=== PATIENT | male | born 1940 | race Caucasian/White ===

== ENCOUNTER 2017-08-30 08:11 | Outpatient (CLI) | payer MEDICARE, OTHER ==
[~2017-08-30] VITALS: Ht 175.3 cm; Wt 87.3 kg
--- NOTE | ~2017-08-30 | HEMODYNAMI ---
PATIENT:MISAEL DOUGHERTY MEDICAL RECORD: [id number] : 38 LOCATION:[facility] ADMISSION DATE: 08/30/17 Generatedon:08/30/201711:40 Patient name: MISAEL DOUGHERTY Patient #: [id number] SSN: : 1940 Date of study: 08/30/2017 Page: Of Hemodynamic Procedure Report Patient Data Patient Demographics Procedure consent was obtained First Name: MISAEL Gender: Male Last Name: LADONNA : 1940 [facility] Initial: L Age: 77 year(s) Patient #: [id number] Race: Unknown Additional ID: [id number] Contact details [address]: [address] [place] [address] State: [place] City: [facility] Zip code: [address] Admission Admission Data Admission Date: 08/30/2017 Admission Time: 8:11 Height (in.): 5.9 BSA: 0.35 (m2) Height (cm.): 14.99 BMI: 4100.06 (kg/m2) Weight (lbs.): 203 Weight (kg.): 92.08 Lab Results Lab Result Date: 08/30/2017 Lab Result Time: 0:00 Biochemistry Name Units Result Min Max BUN mg/dl 30 --(----)-* 7 18 Creatinine mg/dl 1.8 --(----)-* 0.6 1.3 CBC Name Units Result Min Max Hemoglobin g/dl 11.7 *-(----)-- 13.5 17.5 Procedure Procedure Types Cath Procedure Diagnostic Procedure LHC LHC w/Coronaries PCI Procedure Coronary Stent Coronary Stent Initial Miscellaneous Procedures Moderate Sedation up to 15 minutes Procedure Description Procedure Date Procedure Date: 08/30/2017 Procedure Start Time: 11:22 Procedure End Time: 11:39 Procedure Staff Name Function Isidro Quezada MD Performing Physician Floyd Luna RT Monitor Dominique Alba RT Scrub Judith Barrera RN Nurse Procedure Data Cath Procedure Fluoroscopy Diagnostic fluoroscopy Total fluoroscopy Time: 2.9 time: 2.9 min min Diagnostic fluoroscopy Total fluoroscopy dose: 728 dose: 728 mGy mGy Contrast Material Contrast Material Type Amount (ml) Isovue 300 87 Entry Location Entry Primary Successful Side Size Upsize Upsize Entry Closure Saba ccessful Closure Location (Fr) 1 (Fr) 2 (Fr) Remarks Device Remarks Radial Right 6 Fr Mechanical artery Short Compression Estimated blood loss: 10 ml Diagnostic catheters Device Type Used For End Catheter Placement DIAGNOSTIC [place] 110cm 5 Procedure Fr catheter ([id number]) Procedure Complications No complications Procedure Medications Medication Administration Route Dosage Oxygen NC 2 l/min Lidocaine 2% added to field 20 Heparin Flush Bag added to field 2 bags (1000units/500ml NS) 0.9% NaCl I.V. 100 ml/hr Versed I.V. 1 mg Fentanyl I.V. 50 mcg Heparin Bolus I.V. 4000 units Versed I.V. 1 mg Fentanyl I.V. 50 mcg Radial Cocktail I.A. 1 syringe (Verapomil 2mg/Nitro 400mcg/Heparin 1500units) Hemodynamics Rest BSA: 0.35 (m2) HGB: 11.7 (g/dl) O2 Consumption: Estimated: 40.43 (ml/min) O2 Con sumption indexed: Estimated:115.51 (ml/min/m) Heart Rate: 73 (bpm) Pressure Samples Time Site Value (mmHg) Purpose Heart Use Rate(bpm) 11:33 AO 91/57(73) Snapshot 75 Snapshots Pre Cath Intra NCS Post Cath Vital Signs Time Heart Resp SPO2 etCO2 NIBP Rhythm Pain Sedation Rate (ipm) (%) (mmHg) (mmHg) Status Level (bpm) 10:47:25 68 28 93 0 97/58(77) NSR 0 (11) 10(A) , No pain 10:51:59 69 27 93 0 93/58(76) NSR 0 (11) 10(A) , No pain 10:56:34 66 26 94 29.4 96/58(78) NSR 0 (11) 10(A) , No pain 11:01:08 73 24 96 23.4 92/61(74) NSR 0 (11) 10(A) , No pain 11:05:41 67 23 96 36.2 100/63(78) NSR 0 (11) 10(A) , No pain 11:10:15 72 20 96 37.7 92/62(77) NSR 0 (11) 10(A) , No pain 11:14:50 69 22 97 9.8 96/56(79) NSR 0 (11) 10(A) , No pain 11:19:24 72 21 97 15.8 95/60(74) NSR 0 (11) 10(A) , No pain 11:23:59 71 21 95 36.9 99/59(82) NSR 0 (11) 9(A) , No pain 11:28:33 76 19 94 25.6 93/61(75) NSR 0 (11) 9(A) , No pain 11:33:08 75 21 95 35.4 93/57(71) NSR 0 (11) 9(A) , No pain 11:37:42 76 18 94 20.3 96/62(76) NSR 0 (11) 10(A) , No pain Medications Time Medication Route Dose Verified Delivered Reason Note s Effectiveness by by 10:59:13 Oxygen NC 2 l/min Isidro Buffie used for Damien Barrera RN procedure 10:59:23 Lidocaine 2% added 20ml Isidro Isidro for local to vial Damien Quezada MD anesthetic field 10:59:30 Heparin Flush added 2 bags Isidroyuki Felix used for Bag to Damien Quezada MD procedure (1000units/500ml field NS) 10:59:42 0.9% NaCl I.V. 100 Isidro Buffie Per physician ml/hr Damien Barrera RN 11:20:39 Versed I.V. 1 mg Isidro Buffie for sedation Damien Barrera RN 11:20:45 Fentanyl I.V. 50 mcg Isidro Buffie for sedation Damien Barrera RN 11:27:55 Radial Cocktail I.A. 1 Isidro Isidro for (Verapomil syringe Damien Quezada MD vasodilation 2mg/Nitro 400mcg/Heparin 1500units) 11:30:10 Heparin Bolus I.V. 4000 Isidro Buffie for veri fied units Damien Barrera RN anticoagulation with dr quezada 11:33:53 Versed I.V. 1 mg Isidro Buffie for sedation Damien Barrera RN 11:33:57 Fentanyl I.V. 50 mcg Isidro Buffie for sedation Damien Barrera air duct mechanic Log Time Note 10:20:44 Dominiquedianna Alba RT(R) sent for patient. Start room use. 10:31:08 Patient Height : 5.9 inches 10:31:10 Patient Weight : 203 lbs 10:31:35 Diagnostic Cath status Elective 10:31:42 Time tracking: Regular hours 10:31:46 Plan of Care:Hemodynamics will remain stable., Cardiac rhythm will remain stable., Comfort level will be maintained., Respiratory function will remain adequate., Patient/ family verbilizes understanding of procedure., Procedure tolerated without complication., Recovers from procedure without complications.. 10:31:58 H&P Date Dictated: 08/14/2017 Within 30 days and on chart., H&P Addendum completed by physician on day of procedure. (MUST COMPLETE FOR ALL OUTPATIENTS). 10:34:53 Lab Result : BUN 30 mg/dl 10:34:53 Lab Result : Creatinine 1.8 mg/dl 10:34:53 Lab Result : Hemoglobin 11.7 g/dl 10:40:35 Patient received from Pre/Post Procedure Room to CCL 1 Alert and oriented. Tansferred to table in Supine position. 10:40:36 Warm blankets applied, and len hugger turned on for patient comfort. 10:40:37 Correct patient and procedure confirmed by team. 10:40:38 Signed procedure consent form obtained from patient. 10:40:39 ECG and BP/O2 sat monitors applied to patient. 10:46:35 Vital chart was started 10:59:12 Baseline sample Acquired. 10:59:13 Oxygen 2 l/min NC was administered by Judith Barrera RN; used for procedure; 10:59:17 Rhythm: sinus rhythm 10:59:18 Full Disclosure recording started 10:59:20 Pre-procedure instructions explained to patient. 10:59:20 Pre-op teaching completed and patient verbalized understanding. 10:59:23 Lidocaine 2% 20ml vial added to field was administered by Isidro Quezada MD; for local anesthetic; 10:59:30 Heparin Flush Bag (1000units/500ml NS) 2 bags added to field was administered by Isidro Quezada MD; used for procedure; 10:59:42 0.9% NaCl 100 ml/hr I.V. was administered by Judith Barrera RN; Per physician; 11:00:02 Family in patients room. 11:00:04 Patient NPO since Midnight. 11:00:11 Is the patient allergic to Iodine/contrast media? No. 11:00:13 Is patient on blood thinner?Yes 11:00:16 ACC The patient was administered the following blood thiners within the last 24 hours: ACCPlavix 11:00:19 Patient diabetic? Yes. 11:00:28 If diabetic: On Metformin? Unknown 11:00:31 Previous problem with sedation/anesthesia? No ? 11:00:49 Snore? Yes 11:00:51 Sleep apnea? No 11:00:53 Deviated septum? No 11:00:53 Opens mouth fully? Yes 11:00:54 Sticks out tongue? Yes 11:01:07 Airway obstruction? No ? 11:01:09 Dentures? Yes IN TIGHT 11:01:34 Pre procedure: right dorsailis pedis pulse 1+ Palpable, but thready & weak; easily obliterated 11:01:38 Modified Yuriy's test Ulnar < 7 seconds 11:01:40 Patient pain scale 0/10 ?. 11:01:49 IV patent on arrival in left wrist with 0.9% NaCl at O. 11:01:51 Lab results completed and on chart. 11:01:55 Right Radial & Right Groin area was prepped with chlora-prep and draped in sterile fashion 11:01:56 Alarms reviewed by R. N. 11:01:56 Sharps counted by scrub and verified by R.N. 11:03:31 Use device set Radial Dx 11:03:33 Tegaderm 4 x 4 ([id number]) opened to sterile field. 11:03:34 ACIST Manifold (24227) opened to sterile field. 11:03:34 ACIST Hand Control (83136) opened to sterile field. 11:03:36 ACIST Syringe (66969) opened to sterile field. 11:03:36 Medline Cath Pack ([id number]) opened to sterile field. 11:03:36 Bag Decanter (2002) opened to sterile field. 11:03:37 SHEATH 6FR Slender ([id number]) opened to sterile field. 11:03:37 DIAGNOSTIC WIRE .035 260cm J wire (397549) opened to sterile field. 11:03:37 MBrace Wrist Support ([id number]) opened to sterile field. 11:18:30 --------ALL STOP TIME OUT------ :18:31 Final Timeout: patient, procedure, and site verified with staff and physician. All members of the team are in agreement. 11:18:33 Right Radial & Right Groin site verified by team. 11:18:35 Physical assessment completed. ASA score P 2 - A patient with mild systemic disease as per Isidro Quezada MD. 11:18:38 Sedation plan: IV Moderate Sedation Medication:Versed, Fentanyl 11:20:39 Versed 1 mg I.V. was administered by Judith Barrera RN; for sedation; 11::45 Fentanyl 50 mcg I.V. was administered by Judith Barrera RN; for sedation; 11:22:19 Procedure started. 11:22:28 Local anesthetic to right radial artery with Lidocaine 2% by Isidro Quezada MD.INITIAL ACCESS ONLY 11:26:19 A 6 Fr Short sheath was inserted into the Right Radial artery 11:27:00 A DIAGNOSTIC [place] 110cm 5 Fr catheter (332496) was advanced over the wire and used for Procedure. 11:27:55 Radial Cocktail (Verapomil 2mg/Nitro 400mcg/Heparin 1500units) 1 syringe I.A. was administered by Isidro Quezada MD; for vasodilation; 11:28:04 LV angiography performed. 11:28:06 LV gram done using DASILVA 11:28:13 EF : 50 % 11:28:16 Injector settings: Ml/sec: 7, Volume: 15, 11:28:44 RCA angiography performed. 11::59 GUIDE 6FR XBLAD 3.5 catheter ([id number]) opened to sterile field. 11:29:06 Catheter exchanged over wire. 11:29:14 6 Fr XBLAD 3.5 guide catheter was inserted over the wire 11:30:10 Heparin Bolus 4000 units I.V. was administered by Judith Barrera RN; for anticoagulation; verified with dr quezada 11:30:42 LCA angiography performed. 11:31:15 Use device set DAMIEN PCI 11:31:38 INFLATOR Merit BasixCompak (VZ4234) opened to sterile field. 11:31:59 WHISPER 190cm wire ([id number]) opened to sterile field. 11:32:13 Study PCI Site: [place] mLAD has 80% stenosis. 11:32:15 ACC Pre-intervention VERENA Flow is 3. 11:32:18 Whisper wire advanced. 11:32:54 Wire advanced across lesion. 11:33:53 Versed 1 mg I.V. was administered by Judith Barrera RN; for sedation; 11:33:57 Fentanyl 50 mcg I.V. was administered by Judith Barrera RN; for sedation; 11:34:24 Inflation Number: 1 A MICHAEL RX 2.5 x 34 stent ([id number]) was prepped and advanced across the Mid LAD. The stent was deployed at 19 GARRETT for 0:10 (min:sec). 11:34:38 ACC Post-intervention VERENA Flow is 3. 11:34:46 Stent catheter was removed intact over wire. 11:34:47 Wire removed. 11:34:47 Guide catheter removed. 11:34:56 TR BAND Standard ([id number]) opened to sterile field. 11:36:10 Sheath removed intact; hemostasis achieved with Mechanical Compression to the Right Radial artery. 11:37:27 Procedure ended.(Physican Out) 11:38:28 Fluoroscopy time 02.90 minutes. 11:38:32 Fluoroscopy dose: 728 mGy 11:38:32 Flurop Dose total: 728 11:38:36 Contrast amount:Isovue 300 87ml. 11:38:39 Sharps counted by scrub and verified by R.N. 11:38:41 TR band inflated with 10cc of air. 11:38:43 Insertion/operative site no bleeding no hematoma. 11:38:44 Post Procedure Pulses reassessed and unchanged 11:38:46 Post-procedure physical assessment completed. ASA score P 2 - A patient with mild systemic disease as per Isidro Quezada MD. 11:38:49 Post procedure rhythm: unchanged. 11:38:52 Estimated blood loss: 10 ml 11:38:53 Post procedure instruction explained to patient.Patient verbalizes understanding. 11:38:54 Patient needs reinforcement of post procedure teaching. 11:39:04 Procedure type changed to Cath procedure, Diagnostic procedure, LHC, LHC w/Coronaries, PCI procedure, Coronary Stent, Coronary Stent Initial, Miscellaneous Procedures, Moderate Sedation up to 15 minutes 11:39:06 Procedure and supply charges have been captured, reviewed, submitted and are correct. 11:39:08 Procedure Complication : No complications 11:39:30 Vital chart was stopped 11:39:31 See physician's report for complete and final results. 11:39:33 Report given to Pre/Post Procedure Room. 11:39:45 Patient transfered to Pre/Post Procedure Room with Stretcher. 11:39:47 Procedure ended. 11:39:47 Full Disclosure recording stopped 11:39:50 End room use (Document Last) Intervention Summary Intervention Notes Time ActionType Lesion and Equipment Used Action# Pressure Duration Attributes 11:34:24 Place stent Mid LAD MICHAEL RX 2.5 x 1 19 00:10 34 stent ([id number]) Device Usage Item Name Manufacture Quantity Catalog Hospital Part Current [facility] Lot# / Number Charge Number Stock Stock Serial# Code Tegaderm 4 x 4 3M 1 [id number] 268803 [id number] 5 (1626W) ACIST Manifold Acist 1 52028 769627 771895 692158 5 (06741) Medical Systems Inc ACIST Hand Acist 1 19340 689882 207051 021750 5 Control Medical (63488) Systems Inc ACIST Syringe Acist 1 23802 919232 515710 275177 20 (22949) Medical Systems Inc Medline Cath Cardinal 1 [id number] 655879 06538 840584 5 Pack Health ([id number]) Bag Decanter Microtek 1 2001S 398813 04436 623862 5 (2001S) Medical Inc. SHEATH 6FR Terumo 1 [id number] 974176 801101 292224 40 Slender ([id number]) DIAGNOSTIC [facility] [place] 1 971086 411766 431619 846563 30 WIRE .035 260cm J wire (659579) MBrace Wrist Advanced 1 140-0250-00 032633 75719 192019 5 Support Vascular ([id number]) Dynamics DIAGNOSTIC Terumo 1 40-2863 427015 105711 815078 5 [place] 110cm 5 Fr catheter (415756) GUIDE 6FR Cardinal 1 [id number] 978976 747966 121352 10 XBLAD 3.5 Health catheter ([id number]) INFLATOR Merit Merit 1 [id number] 019705 180829 498149 [facility] ([id number]) WHISPER 190cm Ambrosio 1 [id number] 001279 780423 660401 5 wire Vascular ([id number]) MICHAEL RX 2.5 x Medtronic 1 [id number] 597779 6471511 460518 5 [id number] 34 stent ([id number]) TR BAND Terumo 1 [id number] 117881 087757 128490 40 Standard ([id number]) Signature Audit [place] Stage Time Signature Unsigned Intra-Procedure 08/30/2017 Floyd Luna 11:40:25 AM RT(R) Signatures Monitor : Floyd Luna RT Signature : Date : Time : [id number] [place] [address]
[2017-08-30] MEDS ORDERED: BAYER CHEWABLE81 MG PO (08:26)
[2017-08-30] MEDS ORDERED: FERROUS SULFAT325 MG PO (08:27)
[2017-08-30] MEDS ORDERED: GLUCOTROL XL 1010 MG PO (08:27)
[2017-08-30] MEDS ORDERED: LIPITOR40 MG PO (08:27)
[2017-08-30] MEDS ORDERED: PLAVIX75 MG PO (08:27)
[2017-08-30] MEDS ORDERED: TOPROL XL50 MG PO (08:28)
[2017-08-30] MEDS ORDERED: UROCIT-K10 MEQ PO (08:29)
[2017-08-30] MEDS ORDERED: LISINOPRIL10 MG PO (08:29)
[2017-08-30] MEDS ORDERED: CINNAMON500 MG PO (08:30)
[2017-08-30] MEDS ORDERED: NEURONTIN 300300 MG PO (08:30)
[2017-08-30] MEDS ORDERED: PROTONIX40 MG PO (08:30)
[2017-08-30] MEDS ORDERED: JARDIANCE25 MG PO (08:31)
[2017-08-30 08:48] VITALS: BP 99/66; Ht 175.3 cm; Wt 87.3 kg
[2017-08-30 08:51] LABS: BASOPHILS 0.2 % (0-2); EOSINOPHILS 2.8 % (0-7); HEMATOCRIT 37.3 % (42.0-54.0); HEMOGLOBIN 11.7 g/dL (13.5-17.5); IMMATURE GRANULOCYTES 0.3 % (0-5); LYMPHOCYTES 19.3 % (15-50); MCHC 31.4 g/dL (31.0-37.0); MCV 95.6 fL (80.0-100.0); MEAN PLATELET VOLUME 9.3 fL (7.4-10.4); MONOCYTES 9.4 % (2-11); PLATELET COUNT 301 10x3/uL (130-400); RDW 14.3 % (11.5-14.5)
[2017-08-30 09:06] LABS: ANION GAP 11.5 mmol/L (8-16); CALCIUM 8.8 mg/dL (8.5-10.1); CARBON DIOXIDE 25.5 mmol/L (21.0-32.0); CREATININE - SERUM 1.8 mg/dL (0.6-1.3)
--- NOTE | 2017-08-30 14:38 | NUR ---
1205 RSTING WITH EYES CLOSED. ALL VITALS WNL. PULSES PALP X 4. R WRIST TR BAND C/D/I W NO HEMATOMA OR BLEEDING. WIF AT BEDSIDE. DENIES NEEDS AT THIS TIME. 1230 R WRIST TR BAND C/D/I. SITTING UP EATING TURKEY SANDWICH WITH ASSIST FROM . ALL VITALS WNL. 1330 SITTING UP, WATCHING TV. R WRIST TR BAND C/D/I. ALL VITALS WNL. 1430 2CC AIR REMOVED FROM R WRIST TR BAND. WILL MONITOR FOR BLEEDING.
--- NOTE | 2017-08-30 14:56 | NUR ---
2CC MORE REMOVED FROM R WRIST TR BAND. REMAINS C/D/I. AT SIDE.
--- NOTE | 2017-08-30 15:33 | NUR ---
1520 TR BAND WEANED COMPLETELY. TEGADERM AND COTTON BALL APPLIED TO R WRIST. BRACE RE APPLIED. AMBULATED TO BATHROOM TO VOID. D/C INSTRUCTIONS DISCUSSED WITH PATIENT AND AT BEDSIDE. DISCUSSED RETURN INFORMATION FOR SATURDAY: ARRIVE AT 8 FOR 10 PROCEDURE. WHEELED OUT VIA WHEELCHAIR.
--- NOTE | 2017-09-11 15:46 | OP ---
PATIENT NAME: MISAEL DOUGHERTY MEDICAL RECORD: [id number] :38 LOCATION:D.CAT ADMISSION DATE: SURGEON: CHARITY GRAY MD DATE OF OPERATION: 08/30/2017 PROCEDURES: 1. PTCA stent to LAD. 2. Left heart catheterization. 3. Selective coronary angiography. 4. Left ventriculogram. INDICATION: Angina and coronary artery disease. PROCEDURE IN DETAIL: After informed consent was obtained and after a detailed explanation of risks, benefits as well as alternative therapies, the patient elected to proceed with angiogram and angioplasty. The right radial area was prepped and draped in normal sterile fashion. The right radial artery was cannulated via modified Seldinger technique with placement of 6-[place] sheath. All catheters exchanged through this sheath. FINDINGS: Left ventriculogram was performed in the standard 30-degree DASILVA view reveals preserved ejection fraction at 50%. SELECTIVE CORONARY ANGIOGRAPHY: 1. Left main is with no significant angiographic disease. 2. Left anterior descending has a long area of 80% stenosis in the mid vessel. 3. Left circumflex shows moderate irregularities, but no flow-limiting stenosis. 4. Right coronary artery has a 90% stenosis in the mid vessel. This leads into the PDA. The PLV is totally occluded. The PLV fills via collaterals off the circumflex. PTCA STENT OF THE LAD: The stent used was a 2.5 x 34 mm Arp taken to 19 atmospheres. Result was 0% residual stenosis. OVERALL IMPRESSION: Successful percutaneous transluminal coronary angioplasty stent of the left anterior descending going from long area of 80% initial stenosis to 0% residual. PLAN: PTCA stent of the RCA in the near future. TRANSINT:[id number] Voice Confirmation ID: [id number] DOCUMENT ID: [id number] CHARITY GRAY MD at 1546 CC: [id number] DICTATION DATE: 08/30/17 1140 FORENSIC NURSE: 08/30/17 1245 [facility]P CLI 08/30/17 [address] [place] [address]
== END 2017-08-30 15:40 | disposition home or self-care (01) ==
LOC: D.CATH 08:11
PROVIDERS: Internal Medicine Interventional Cardiology
DX: I25.119 Atherosclerotic heart disease of native coronary artery with unspecified angina pectoris (principal); R94.30 Abnormal result of cardiovascular function study, unspecified; Z01.812 Encounter for preprocedural laboratory examination
CPT/HCPCS: 93458; C9600

== ENCOUNTER 2017-09-03 07:45 | Outpatient (CLI) | payer MEDICARE, OTHER ==
[~2017-09-03] VITALS: Ht 175.3 cm; Wt 88.2 kg
--- NOTE | ~2017-09-03 | HEMODYNAMI ---
PATIENT:MISAEL DOUGHERTY MEDICAL RECORD: [id number] : 38 LOCATION:D.CAT ADMISSION DATE: 09/03/17 Generatedon:09/03/201710:15 Patient name: MISAEL DOUGHERTY Patient #: [id number] SSN: : 1940 Date of study: 09/03/2017 Page: Of Hemodynamic Procedure Report Patient Data Patient Demographics Procedure consent was obtained First Name: MISAEL Gender: Male Last Name: LADONNA : 1940 [facility] Initial: L Age: 77 year(s) Patient #: [id number] Race: Unknown Additional ID: [id number] Contact details Address: [address] [place] [address] State: [place] City: [facility] Zip code: [address] Past Medical History Allergies Allergen Reaction Date Comments Reported Other allergy 09/03/2017 hydrocodone, red dye Admission Admission Data Admission Date: 09/03/2017 Admission Time: 7:45 Height (in.): 70 BSA: 2.1 (m2) Height (cm.): 177.8 BMI: 29.13 (kg/m2) Weight (lbs.): 203 Weight (kg.): 92.08 Lab Results Lab Result Date: 08/30/2017 Lab Result Time: 0:00 Biochemistry Name Units Result Min Max BUN mg/dl 30 --(----)-* 7 18 Creatinine mg/dl 1.8 --(----)-* 0.6 1.3 CBC Name Units Result Min Max Hemoglobin g/dl 11.7 *-(----)-- 13.5 17.5 Procedure Procedure Types Cath Procedure PCI Procedure Coronary Stent Coronary Stent Initial Miscellaneous Procedures Moderate Sedation up to 15 minutes Procedure Description Procedure Date Procedure Date: 09/03/2017 Procedure Start Time: 10:03 Procedure End Time: 10:13 Procedure Staff Name Function Martina Roman RT Monitor Jessica Smith RT Scrub Judith Barrera RN Nurse Isidro Quezada MD Performing Physician Procedure Data Cath Procedure Fluoroscopy Diagnostic fluoroscopy Total fluoroscopy Time: 1.2 time: 1.2 min min Diagnostic fluoroscopy Total fluoroscopy dose: 200 dose: 200 mGy mGy Contrast Material Contrast Material Type Amount (ml) Isovue 300 30 Entry Location Entry Primary Successful Side Size Upsize Upsize Entry Closure Saba ccessful Closure Location (Fr) 1 (Fr) 2 (Fr) Remarks Device Remarks Radial Right 6 Fr Mechanical artery Short Compression Estimated blood loss: 5 ml Procedure Complications No complications Procedure Medications Medication Administration Route Dosage Oxygen NC 2 l/min Lidocaine 2% added to field 20 Heparin Flush Bag added to field 2 bags (1000units/500ml NS) 0.9% NaCl I.V. 100 ml/hr Heparin Bolus I.V. 4000 units Versed I.V. 2 mg Fentanyl I.V. 100 mcg Radial Cocktail I.A. 1 syringe (Verapomil 2mg/Nitro 400mcg/Heparin 1500units) Versed I.V. 0.5 mg Fentanyl I.V. 25 mcg Hemodynamics Rest BSA: 2.1 (m2) HGB: 11.7 (g/dl) O2 Consumption: Estimated: 238.35 (ml/min) O2 Con sumption indexed: Estimated:113.5 (ml/min/m) Heart Rate: 67 (bpm) Snapshots Pre Cath Intra NCS Post Cath Vital Signs Time Heart Resp SPO2 NIBP Rhythm Pain Sedation Rate (ipm) (%) (mmHg) Status Level (bpm) 9:54:13 66 10 96 99/66(86) NSR 0 (11) 10(A) , No pain 9:58:20 72 22 96 94/58(78) NSR 0 (11) 10(A) , No pain 10:02:24 74 18 95 95/61(74) NSR 0 (11) 10(A) , No pain 10:06:30 78 18 94 88/56(74) NSR 0 (11) 9(A) , No pain 10:10:32 77 19 94 85/57(71) NSR 0 (11) 10(A) , No pain Medications Time Medication Route Dose Verified Delivered Reason Note s Effectiveness by by 9:53:53 Oxygen NC 2 l/min Isidro Wong used for Damien Barrera global lead 9:54:00 Lidocaine 2% added 20ml Isidro Felix for local to vial Damien Quezada MD anesthetic field 9:54:05 Heparin Flush added 2 bags Isidro Felix used for Bag to Damien Quezada MD procedure (1000units/500ml field NS) 9:54:14 0.9% NaCl I.V. 100 Isidro Wong Per physician ml/hr Damien Barrera RN 10:01:27 Versed I.V. 2 mg Isidro Wong for sedation Damien Barrera RN 10:01:33 Fentanyl I.V. 100 mcg Isidro Wong for sedation Damien Barrera RN 10:02:13 Radial Cocktail I.A. 1 Isidro Felix for (Verapomil syringe Damien Quezada MD vasodilation 2mg/Nitro 400mcg/Heparin 1500units) 10:03:19 Heparin Bolus I.V. 4000 Isidro Wong for veri fied units Damien Barrera RN anticoagulation with dr quezada 10:05:00 Fentanyl I.V. 25 mcg Isidro Felix for sedation Damien Quezada MD 10:05:53 Versed I.V. 0.5 mg Isidro Felix for sedation Damien Quezada MD Procedure Log Time Note 9:35:52 Patient Height : 70 inches 9:36:08 Patient Weight : 203 lbs 9:37:14 Diagnostic Cath status Elective 9:37:16 Martina BURTON(R) sent for patient. Start room use. 9:37:17 Time tracking: Regular hours 9:37:21 Plan of Care:Hemodynamics will remain stable., Cardiac rhythm will remain stable., Comfort level will be maintained., Respiratory function will remain adequate., Patient/ family verbilizes understanding of procedure., Procedure tolerated without complication., Recovers from procedure without complications.. 9:53:03 Patient received from Pre/Post Procedure Room to CCL 2 Alert and oriented. Tansferred to table in Supine position. 9:53:04 Warm blankets applied, and len hugger turned on for patient comfort. 9:53:05 Correct patient and procedure confirmed by team. 9:53:06 Signed procedure consent form obtained from patient. 9:53:07 ECG and BP/O2 sat monitors applied to patient. 9:53:08 Vital chart was started 9:53:09 Baseline sample Acquired. 9:53:12 Rhythm: sinus rhythm 9:53:14 Full Disclosure recording started 9:53:21 H&P Date Dictated: 09/03/2017 Within 30 days and on chart., H&P Addendum completed by physician on day of procedure. (MUST COMPLETE FOR ALL OUTPATIENTS). 9:53:22 Pre-procedure instructions explained to patient. 9:53:23 Pre-op teaching completed and patient verbalized understanding. 9:53:24 Family in waiting room. 9:53:28 Patient NPO since Midnight. 9:53:53 Oxygen 2 l/min NC was administered by Judith Barrera RN; used for procedure; 9:54:00 Lidocaine 2% 20ml vial added to field was administered by Isidro Quezada MD; for local anesthetic; 9:54:05 Heparin Flush Bag (1000units/500ml NS) 2 bags added to field was administered by Isidro Quezada MD; used for procedure; 9:54:14 0.9% NaCl 100 ml/hr I.V. was administered by Judith Barrera RN; Per physician; 9:55:18 Patient allergic to Other allergyhydrocodone, red dye 9:55:22 Is the patient allergic to Iodine/contrast media? No. 9:55:23 Was the patient premedicated? No 9:55:24 Is patient on blood thinner?Yes 9:55:26 ACC The patient was administered the following blood thiners within the last 24 hours: ACCPlavix 9:55:28 Patient diabetic? Yes. 9:55:29 If diabetic: On Metformin? No 9:55:32 Previous problem with sedation/anesthesia? No ? 9:55:33 Snore? Yes 9:55:34 Sleep apnea? No 9:55:35 Deviated septum? No 9:55:36 Opens mouth fully? Yes 9:55:37 Sticks out tongue? Yes 9:55:39 Airway obstruction? No ? 9:55:44 Dentures? Yes in tight 9:55:48 Pre procedure: right dorsailis pedis pulse 1+ Palpable, but thready & weak; easily obliterated 9:55:50 Pre procedure: left dorsailis pedis pulse 1+ Palpable, but thready & weak; easily obliterated 9:55:52 Patient pain scale 0/10 ?. 9:55:57 IV patent on arrival in left forearm with 0.9% NaCl at O. 9:56:02 Lab results completed and on chart. 9:56:07 Right Radial & Right Groin area was prepped with chlora-prep and draped in sterile fashion 9:56:08 Alarms reviewed by R. N. 9:56:08 Sharps counted by scrub and verified by R.N. 9:59:11 Physician arrived 9:59:12 --------ALL STOP TIME OUT------ 9:59:12 Final Timeout: patient, procedure, and site verified with staff and physician. All members of the team are in agreement. 9:59:13 Right Radial & Right Groin site verified by team. 9:59:15 Physical assessment completed. ASA score P 2 - A patient with mild systemic disease as per Martina Roman RT(R). 9:59:19 Sedation plan: IV Moderate Sedation Medication:Versed, Fentanyl 10:01:27 Versed 2 mg I.V. was administered by Judith Barrera RN; for sedation; 10:01:33 Fentanyl 100 mcg I.V. was administered by Judith Barrera RN; for sedation; 10:02:13 Radial Cocktail (Verapomil 2mg/Nitro 400mcg/Heparin 1500units) 1 syringe I.A. was administered by Isidro Quezada MD; for vasodilation; 10:03:00 Procedure started. 10:03:05 Local anesthetic to right radial artery with Lidocaine 2% by Martina Roman RT(R).INITIAL ACCESS ONLY 10:03:12 A 6 Fr Short sheath was inserted into the Right Radial artery 10:03:17 Zero performed for pressure channel P1 10:03:19 Heparin Bolus 4000 units I.V. was administered by Judith Barrera RN; for anticoagulation; verified with dr quezada 10:03:22 Zero performed for pressure channel P1 10:03:28 Zero performed for pressure channel P1 10:03:43 6 Fr ar 2 guide catheter was inserted over the wire 10:03:48 whisper wire advanced. 10:04:05 Use device set Femoral Dx 10:04:06 ACIST Syringe (49983) opened to sterile field. 10:04:07 Bag Decanter () opened to sterile field. 10:04:08 Medline Cath Pack ([id number]) opened to sterile field. 10:04:09 DIAGNOSTIC WIRE .035 260cm J wire ([id number]) opened to sterile field. 10:04:11 ACIST Hand Control (01169) opened to sterile field. 10:04:12 ACIST Manifold (23397) opened to sterile field. 10:04:14 Tegaderm 4 x 4 (1626W) opened to sterile field. 10:04:32 GUIDE 6FR AR 2.0 catheter (CP4VE30) opened to sterile field. 10:04:33 WHISPER 300cm guide wire ([id number]) opened to sterile field. 10:04:34 INFLATOR Merit BasixCompak (AK1403) opened to sterile field. 10:04:39 SHEATH 6FR [place] (ROG356) opened to sterile field. 10:04:57 Wire advanced across lesion. 10:05:00 Fentanyl 25 mcg I.V. was administered by Isidro Quezada MD; for sedation; 10:05:53 Versed 0.5 mg I.V. was administered by Isidro Quezada MD; for sedation; 10:07:10 Inflation Number: 1 A PROMUS Premier 2.5 x 16 stent ([id number]) was prepped and advanced across the Mid RCA. The stent was deployed at 13 GARRETT for 0:10 (min:sec). 10:07:34 Stent catheter was removed intact over wire. 10:07:34 Wire removed. 10:07:35 Guide catheter removed. 10:09:12 Procedure ended.(Physican Out) 10:09:34 Fluoroscopy time 01.20 minutes. 10:09:38 Flurop Dose total: 200 10:09:38 Fluoroscopy dose: 200 mGy 10:09:42 Contrast amount:Isovue 300 30ml. 10:09:43 Sharps counted by scrub and verified by R.N. 10:09:44 Insertion/operative site no bleeding no hematoma. 10:12:12 SHEATH 6FR Slender ([id number]) opened to sterile field. 10:12:31 Sheath removed intact; hemostasis achieved with Mechanical Compression to the Right Radial artery. 10:12:41 TR BAND Standard ([id number]) opened to sterile field. 10:12:52 TR band inflated with 10cc of air. 10:12:56 Post right radial artery:stable 10:12:57 Post Procedure Pulses reassessed and unchanged 10:13:00 Post procedure rhythm: unchanged. 10:13:03 Estimated blood loss: 5 ml 10:13:04 Post procedure instruction explained to patient.Patient verbalizes understanding. 10:13:05 Patient needs reinforcement of post procedure teaching. 10:13:22 Procedure and supply charges have been captured, reviewed, submitted and are correct. 10:13:26 Procedure Complication : No complications 10:13:28 Vital chart was stopped 10:13:28 See physician's report for complete and final results. 10:13:31 Report given to Pre/Post Procedure Room. 10:13:33 Patient transfered to Pre/Post Procedure Room with Stretcher. 10:13:35 Procedure ended. 10:13:35 Full Disclosure recording stopped 10:13:42 ACC-PCI Only Patient was given prescriptions, or instructed by Isidro Quezada MD to start/continue the following medications upon discharge: Plavix 10:13:43 End room use (Document Last) Intervention Summary Intervention Notes Time ActionType Lesion and Equipment Action# Pressure Duration Attributes Used 10:07:10 Place stent Mid RCA PROMUS 1 13 00:10 Premier 2.5 x 16 stent ([id number]) Device Usage Item Name Manufacture Quantity Catalog Number Hospital Part Current Min imal Lot# / Charge Number Stock Stock Serial# Code ACIST Acist 1 98172 876739 041834 251646 20 Syringe Medical (39646) Systems Inc Bag Decanter Microtek 1 2001S 570140 57444 961002 5 (2001S) Medical Inc. Medline Cath Cardinal 1 [id number] 717041 76048 510825 5 [facility] ([id number]) DIAGNOSTIC [facility] [place] 1 919141 178582 978176 852553 30 WIRE .035 260cm J wire (232885) ACIST Hand Acist 1 01945 210648 644322 763470 5 Control Medical (51664) Systems Inc ACIST Acist 1 72047 547833 775961 258871 5 Manifold Medical (56890) Systems Inc Tegaderm 4 x 3M 1 1626W 223658 225829 420527 5 4 (1626W) GUIDE 6FR AR Medtronic 1 [id number] 775434 48448 141264 1 2.0 catheter (UA8KV54) [facility] 1 [id number] 023931 896495 053550 5 300cm guide Vascular wire ([id number]) INFLATOR Merit 1 SJ2804 596075 565643 236136 15 [facility] Medical BasixCompak (VF6965) SHEATH 6FR Terumo 1 NSN286 603262 577162 484496 40 [place] (TNB570) PROMUS [place] 1 [id number] 840003 072946 5 [id number] Premier 2.5 Scientific x 16 stent ([id number]) SHEATH 6FR Terumo 1 [id number] 756597 253751 199539 40 Slender ([id number]) TR BAND Terumo 1 [id number]-DOW 416814 586978 150368 40 Standard ([id number]) Signature Audit [place] Stage Time Signature Unsigned Intra-Procedure 09/03/2017 Martina Roman 10:15:02 AM RT(R) Signatures Monitor : Martina Roman RT Signature : Date : Time : [facility] [address] [place] [address]
[~2017-09-03 07:45] MED LIST: BAYER CHEWABLE81 MG PO; CINNAMON500 MG PO; FERROUS SULFAT325 MG PO; GLUCOTROL XL 1010 MG PO; JARDIANCE25 MG PO; LIPITOR40 MG PO; LISINOPRIL10 MG PO; NEURONTIN 300300 MG PO; PLAVIX75 MG PO; PROTONIX40 MG PO; TOPROL XL50 MG PO; UROCIT-K10 MEQ PO
[2017-09-03 08:16] LABS: BASOPHILS 0.2 % (0-2); EOSINOPHILS 2.4 % (0-7); HEMATOCRIT 36.4 % (42.0-54.0); HEMOGLOBIN 11.5 g/dL (13.5-17.5); IMMATURE GRANULOCYTES 0.2 % (0-5); LYMPHOCYTES 19.6 % (15-50); MCH 30.2 pg (26.0-34.0); MCHC 31.6 g/dL (31.0-37.0); MCV 95.5 fL (80.0-100.0); MEAN PLATELET VOLUME 9.2 fL (7.4-10.4); MONOCYTES 9.1 % (2-11); NEUTROPHILS 68.5 % (40-80); PLATELET COUNT 262 10x3/uL (130-400); RBC 3.81 10x6/uL (4.20-6.10); RDW 14.3 % (11.5-14.5); WBC 9.5 10x3/uL (4.8-10.8)
[2017-09-03 08:21] VITALS: BP 95/62; Ht 175.3 cm; Wt 88.2 kg
[2017-09-03 08:26] LABS: CARBON DIOXIDE 23.5 mmol/L (21.0-32.0); CREATININE - SERUM 1.8 mg/dL (0.6-1.3); POTASSIUM - SERUM 4.5 mmol/L (3.5-5.1)
--- NOTE | 2017-09-03 10:40 | NUR ---
SLEEPING IN BED. FAMILY AT BEDSIDE. BP-82/51, SINUS 71bpm ON TELEMETRY. FLUIDS INFUSING ORDERED. BASELINE BP-90/52. 2L NC WHILE SLEEPING. AROUSES TO STIMULI. RT WRIST TR BAND CLEAN DRY INTACT. FREE FROM BLEEDING. FREE FROM HEMATOMA. PULSES PALPABLE BILATERALLY. DENIES ANY NEEDS. BED LOCKED AND LOW. CALL LIGHT IN REACH. TWO SIDERAILS UP.
--- NOTE | 2017-09-03 11:40 | NUR ---
SLEEPING IN BED. AROUSES VERBALLY. TR BAND CDI. PULSES PALPABLE BILATERALLY. SPOUSE AT BEDSIDE. RESPIRATIONS EVEN AND REGULAR. O2 97% RA. SINUS 69bpm ON TELEMETRY. DENIES ANY SOB OR CHEST PAIN. CONTINUE PLAN OF CARE AND SAFETY PRECAUTIONS.
--- NOTE | 2017-09-03 12:40 | NUR ---
ALERT AND ORIENTED X4. AT BEDSIDE. TOLERATING SANDWICH. DENIES NAUSEA. BEGIN DEFLATING TR BAND BY 2mL. MONITOR FOR BLEEDING. DENIES SOB AND CHEST PAIN. PULSE PALPABLE BILATERALLY. SINUS RHYTHM 70bpm ON TELEMETRY. CONTINUE PLAN OF CARE AND SAFETY PRECAUTIONS.
--- NOTE | 2017-09-03 13:24 | NUR ---
DEFLATE TR BAND 5ML. NO SIGN OF BLEEDING. CONTINUE TO MONITOR. ALERT AND ORIENTED X4. SPOUSE AT BEDSIDE. DENIES CHEST PAIN AND SOB. SINUS 72bpm ON TELEMETRY. O2 95% RA. PULSES PALPABLE BILATERALLY. RT WRIST CDI. CONTINUE PLAN OF CARE AND SAFETY PRECAUTIONS.
--- NOTE | 2017-09-03 13:59 | NUR ---
ALERT AND ORIENTED X4. RESTING IN BED. DC LT HAND IV TIP INTACT. TR BAND REMOVED. RT WRIST FREE FROM BLEEDING. DRESSING PLACED OVER PUNCTURE SITE. PULSE PALPABLE BILATERALLY. VITALS STABLE. SPOUSE AT BEDSIDE. AMBULATES TO RESTROOM. GAIT STEADY.
--- NOTE | 2017-09-03 14:15 | NUR ---
ALERT AND ORIENTED X4. WENT TO PULL CAR UP TO DOOR. RT WRIST DRESSING CDI. FREE FROM BLEEDING. FREE FROM HEMATOMA. URINATES IN RESTROOM. DISCHARGE INSTRUCTIONS GIVEN VERBALLY AND WRITTEN. WRITTEN SCRIPTS PROVIDED. ESCORT TO RIDE VIA WHEELCHAIR BY COSMETICS SUPERVISOR TEAM. REMAINS FREE FROM INJURY.
--- NOTE | 2017-09-11 15:46 | DS ---
PATIENT:MISAEL PALACIOS :38 MEDICAL RECORD: [id number] DISCHARGE SUMMARY ADMISSION DATE: 09/03/17 DISCHARGE DATE: 09/03/17 DISCHARGE DIAGNOSES: 1. Angina. 2. Coronary artery disease. 3. Percutaneous transluminal coronary angioplasty stent to left anterior descending and right coronary artery this admission. HOSPITAL COURSE: Mr. Palacios presents with anginal symptomatology, found to have 3-vessel coronary artery disease, underwent successful PTCA stent of the LAD and RCA and discharged home with the addition of aspirin and Plavix to his medical regimen. He will follow up with [facility] in 1 month. TRANSINT:[id number] Voice Confirmation ID: [id number] DOCUMENT ID: [id number] CHARITY GRAY MD at 1546 CC: [id number] DICTATION DATE: 09/03/17 1009 PICKER PACKER: 09/03/17 1256 [facility] CLI 09/03/17 [id number] [place] [address]
--- NOTE | 2017-09-11 15:46 | HP ---
PATIENT: MISAEL PALACIOS MEDICAL RECORD: [id number] ACCOUNT: [id number] LOCATION:KIM : 38 ADMISSION DATE: 09/03/17 HISTORY AND PHYSICAL EXAMINATION ADMITTING DIAGNOSES: 1. Angina. 2. Coronary artery disease. 3. Recent percutaneous transluminal coronary angioplasty stent to left anterior descending with concomitant disease RCA. HISTORY OF PRESENT ILLNESS: Mr. Palacios present with unstable anginal symptomatology, found to have 2-vessel disease of the LAD and RCA, underwent successful PTCA stent of the LAD, now brought back for PTCA stent of the RCA. REVIEW OF SYSTEMS: The patient reports easy bruising but reports no swollen glands. The patient reports no fever, no night sweats, no significant weight gain, no significant weight loss. No significant exercise tolerance. The patient reports no dry eyes, no irritation, no vision change. Patient reports no difficulty hearing and no ear pain. Patient reports no frequent nose bleeds or nose and sinus problems. Patient reports on arm pain on exertion. No shortness of breath while lying down. No history of heart murmur. Patient reports no cough, no wheezing or coughing up blood. Patient reports no abdominal pain, no vomiting. Normal appetite. No diarrhea and not vomiting blood. No nausea and no constipation. Patient reports no incontinence. No difficulty urinating. No hematuria. No increased frequency. Patient reports no muscle aches. No weakness, no arthralgias, no back pain. No swelling of the extremities. Patient reports no abnormal mole, no jaundice, no rashes. Reports no loss of consciousness. No weakness and no numbness. No seizures, dizziness, or headaches. The patient reports no depression, no sleep disturbance, feeling safe in a relationship and no alcohol abuse. Patient reports on fatigue. Reports no runny nose or sinus pressure. No itching, no hives, and no frequent sneezing. PHYSICAL EXAMINATION: GENERAL APPEARANCE: Well-nourished, well-developed, appears stated age. Level of distress, comfortable. PSYCHIATRIC: Mental status, alert, normal affect. Orientation, oriented to time, place and person. EYES: Lids and conjunctiva, noninjected. No discharge, no pallor. ENT: Lips, teeth, gums, normal dentition. Oropharynx, no cyanosis, no pallor. NECK: Carotid arteries, bilateral normal upstroke, no bruits, no thrills. JUGULAR VEINS: No jugular venous pressure or distention. CERVICAL LYMPH NODES: Nontender, nonenlarged. THYROID: Not enlarged. Nontender. No nodules. LUNGS: Respiratory effort, unlabored. CHEST: Normal curvature. No thoracic deformity. No chest wall tenderness. Percussion, resonant. Auscultation, clear. No wheezes, no rales, no rhonchi. CARDIOVASCULAR: Precordial exam, nondisplaced. No heaves or pericardial thrills. Rate and rhythm, regular. Heart sounds, normal S1, normal S2. No S3, no gallop, no rub. Systolic murmur, not heard. Diastolic murmur, not heard. EXTREMITIES: No cyanosis, no edema. Peripheral pulses, full and equal in all extremities, except as noted. No bruits appreciated. ABDOMEN: Soft, nondistended. Normal aorta. No bruit. Nontender. No masses. Liver, nontender, no hepatomegaly. Spleen, nontender, no splenomegaly. HISTORY AND PHYSICAL [id number] MISAEL PALACIOS MUSCULOSKELETAL: No joint tenderness. No joint swelling. No erythema. NEUROLOGICAL: Normal gait, normal strength, normal tone. SKIN: Warm and dry. OVERALL IMPRESSION: Anginal symptomatology with critical disease of the right coronary artery. We will proceed with percutaneous transluminal coronary angioplasty stent of the right coronary artery. TRANSINT:[id number] Voice Confirmation ID: [id number] DOCUMENT ID: [id number] CHARITY GRAY MD at 1546 CC: [id number] DICTATION DATE: 09/03/17 1111 COOPER HELPER: 09/03/17 1122 [facility] CLI 09/03/17 [id number] [place] [address]
--- NOTE | 2017-09-11 15:46 | OP ---
PATIENT NAME: MISAEL DOUGHERTY MEDICAL RECORD: [id number] :38 LOCATION:D.CAT ADMISSION DATE: SURGEON: CHARITY GRAY MD DATE OF OPERATION: 09/03/2017 PROCEDURES: 1. PTCA stent RCA. 2. Selective coronary angiography. INDICATION: Angina and coronary artery disease. PROCEDURE IN DETAIL: After informed consent was obtained and after detailed explanation of risks, benefits as well as alternative therapies, the patient elected to proceed with angiogram and angioplasty. The right radial area was prepped and draped in normal sterile fashion. Right radial artery was cannulated via modified Seldinger technique with placement of 6-Turkmen sheath. All catheters exchanged through this sheath. FINDINGS: The right coronary has a 90% stenosis in the mid vessel. This was addressed with a 2.5 x 16 mm Promus stent. Result was 0% residual stenosis. OVERALL IMPRESSION: Successful percutaneous transluminal coronary angioplasty stent of the right coronary artery going from 90% initial stenosis to 0% residual. TRANSINT:[id number] Voice Confirmation ID: [id number] DOCUMENT ID: [id number] CHARITY GRAY MD at 1546 CC: [id number] DICTATION DATE: 09/03/17 1010 TECHNOLOGY EDUCATION INSTRUCTOR: 09/03/17 1108 [facility] CLI 09/03/[address] [address]
== END 2017-09-03 14:15 | disposition home or self-care (01) ==
LOC: D.CATH 07:45
PROVIDERS: Internal Medicine Interventional Cardiology
DX: I25.119 Atherosclerotic heart disease of native coronary artery with unspecified angina pectoris (principal); I10 Essential (primary) hypertension; E78.5 Hyperlipidemia, unspecified; Z01.812 Encounter for preprocedural laboratory examination

== ENCOUNTER 2018-07-31 15:30 | Inpatient (IN) | payer MEDICARE, OTHER ==
[2018-07-31] VITALS (14 sets, daily range): BP systolic 91–143; BP diastolic 49–109
[~2018-07-31] VITALS: Ht 175.3 cm; Wt 78.7 kg
--- NOTE | ~2018-07-31 | CN ---
PATIENT NAME:MISAEL DOUGHERTY MEDICAL RECORD: [id number] : 38 LOCATION:. D.2114 ADMIT DATE: 07/31/18 ACCOUNT: [id number] CONSULTING PHYSICIAN: BRAEDEN ALBA MD REFERRING PHYSICIAN: JOSE GUADALUPE FLOWERS MD DATE OF CONSULTATION: 08/01/2018 CONSULT REQUESTING PHYSICIAN: Jose Guadalupe Flowers MD REASON FOR CONSULTATION: Acute hypoxic hypercapnic respiratory failure, BiPAP management. HISTORY OF PRESENT ILLNESS: Mr. Dougherty is a 78-year-old gentleman who is very hard of hearing. The history was taken by reviewing the chart as well as talking to the patient's . The patient is not feeling well for the last few days. He is very lethargic, weak, shortness of breath with mild exertion, also he has orthopnea and PND. The patient came into the ER. Chest x-ray showed bilateral pleural effusion, pulmonary edema and also he has a fever of 101.5. PAST MEDICAL HISTORY: 1. Hypertension. 2. Chronic kidney disease. 3. Anemia. 4. History of pneumonia. 5. Hypertension. 6. Hard of hearing. 7. History of psoriasis. 8. History of arthritis. 9. Coronary artery disease. He has angioplasty by Dr. Quezada in the past. PAST SURGICAL HISTORY: 1. Herniorrhaphy. 2. Right shoulder surgery. 3. Cataract surgery. 4. Kidney stone removed. ALLERGIES: HE IS ALLERGIC TO HYDROCODONE. MEDICATIONS: On V[place] is reviewed. PERSONAL AND SOCIAL HISTORY: The patient is an ex-smoker. He is a nondrinker. FAMILY HISTORY: Significant for cardiovascular disease. PHYSICAL EXAMINATION: GENERAL: Now, the patient is lying comfortably in bed. He is on BiPAP. He is not in any acute distress. VITAL SIGNS: The blood pressure is a 96-203/53, pulse is 83, respiration is 24, T-max is 101.9. HEENT: Conjunctivae are pink. Sclerae are not icteric. NECK: Supple. There is elevated JVD. CHEST: The chest excursion is minimal on both sides. Bilateral crackles. No wheezing. HEART: Rhythm regular, normal sound, no murmur. ABDOMEN: Soft, bowel sounds present. No hepatosplenomegaly. CONSULT REPORT [id number] MISAEL DOUGHERTY RECTAL: Deferred. EXTREMITIES: No cyanosis, no clubbing, no pedal edema. SKIN: The skin is warm, normal turgor. CENTRAL NERVOUS SYSTEM: The patient is hard of hearing. Other cranial nerves are intact. LABORATORY DATA: CBC: WBC is 8.9, hemoglobin 3.5, hematocrit is 9.7, the platelet count is 196. Chemistry: Sodium 141, potassium is 6, chloride 109, bicarbonate is 27.4, BUN is 38, creatinine 2.2. ABG: The pH is 7.26, CO2 is 6.7, the pO2 is 61, the bicarbonate is 27.7. IMAGING: Chest radiograph, there is increased interstitial marking. There are bilateral pulmonary edema. There are bilateral pleural effusions. The VQ scan is low probability. D-dimer is positive. IMPRESSION: 1. Acute hypoxic hypercapnic respiratory failure. 2. Respiratory acidosis secondary to #1. 3. Possible underlying pneumonia with fever. 4. Pulmonary edema. 5. Bilateral pleural effusion. 6. Congestive heart failure. 7. CKD. 8. Hyperkalemia. RECOMMENDATION: 1. Continue the BiPAP. 2. Continue Lasix. 3. Check the cardiac echo. Check the ammonia level, check the TSH. 4. Check the blood culture. 5. Check the urine culture. 6. Continue empiric Rocephin and Zithromax. 7. Follow up labs and chest radiograph. Consult cardiology and nephrology. Dr. Flowers, thank you for involving me in the care of Mr. Dougherty. TRANSINT:[id number] Voice Confirmation ID: [id number] DOCUMENT ID: [id number] BRAEDEN ALBA MD at 1711 CC: [id number] DICTATION DATE: 08/01/18 1247 FOUNTAIN OPERATOR: 08/01/18 1358 DIS IN 08/05/18 [facility] [address] [place] [address]
--- NOTE | ~2018-07-31 | MORECARE ---
CASE MANAGEMENT DISCHARGE SUMMARY PATIENT: MISAEL DOUGHERTY UNIT: [id number] ADM DATE: 07/31/18 AGE: 78 : 39 SEX: M ROOM/BED: D.2114 AUTHOR: LUIS ZAMAN PHYSICIAN: REFERRING PHYSICIAN: ESTELA ELLIS MD DATE OF SERVICE: 08/05/18 Discharge Plan Patient Name: MISAEL DOUGHERTY Facility: [facility]:[place] : 1940 Planned Disposition: Inpatient Rehab Anticipated Discharge Date: 08/05/18 Discharge Date: Expected LOS: 5 Initial Reviewer: [email or web address] Initial Review Date: 07/31/2018 Generated: 08/05/18 12:23 pm DCPIA - Discharge Planning Initial Assessment Updated by OPHELIA: Randall Garcia on 08/05/18 11:20 am * Is the patient Alert and Oriented? Yes * How many steps to enter\exit or inside your home? NONE * PCP DR. CASTRO * Pharmacy [facility] * Preadmission Environment Home with Family * ADLs Independent * Equipment None * Other Equipment NO MEDICAL EQUIPMENT PROVIDER PREFERENCE * List name and contact numbers for known caregivers / representatives who currently or will assist patient after discharge: OZZIE DOUGHERTY, SPOUSE, [phone] * Verbal permission to speak to the caregivers and representatives has been obtained from the patient. Yes * Community resources currently utilized None * Please name any agencies selected above. NONE * Additional services required to return to the preadmission environment? No * Can the patient safely return to the preadmission environment? Yes * Has this patient been hospitalized within the prior 30 days at any hospital? No Coverage Notice Reviewer: [id number] - Randall Garcia Notice Issued Date-Time: 08/05/2018 10:15 Notice Type: IM Discharge Notice Notice Delivered To: Patient Relationship to Patient: Program Analyst Name: Delivery Method: HAND - Hand Delivered Teresa Days: Prior Verbal Notification: Recipient Understood Notice: Yes Recipient Signature: Yes Med Rec Note Co-signed by Attending: Coverage Notice Comment: Patient Name: MISAEL DOUGHERTY Page 08256 at 1123 All edits/amendments must be made on the electronic document DICTATION DATE: 08/05/181121 PETROL TANKER DRIVER: ELEANOR 08/05/18 112 RPT#: [id number] DC DATE: STATUS: ADM IN [facility] [address] [place] [address] END OF REPORT
--- NOTE | ~2018-07-31 | MORECARE ---
CASE MANAGEMENT DISCHARGE SUMMARY PATIENT: MISAEL DOUGHERTY UNIT: [id number] ADM DATE: 07/31/18 AGE: 78 : 39 SEX: M ROOM/BED: D.3484 AUTHOR: LUIS ZAMAN PHYSICIAN: REFERRING PHYSICIAN: ESTELA ELLIS MD DATE OF SERVICE: 08/05/18 Discharge Plan Patient Name: MISAEL DOUGHERTY Facility: [facility]:[place] : 1940 Planned Disposition: Home with Home Health Anticipated Discharge Date: 08/05/18 Discharge Date: Expected LOS: 5 Initial Reviewer: [email or web address] Initial Review Date: 07/31/2018 Generated: 08/05/18 12:29 pm DCPIA - Discharge Planning Initial Assessment Updated by OPHELIA: Randall Garcia on 08/05/18 11:20 am * Is the patient Alert and Oriented? Yes * How many steps to enter\exit or inside your home? NONE * PCP DR. CASTRO * Pharmacy [facility] * Preadmission Environment Home with Family * ADLs Independent * Equipment None * Other Equipment NO MEDICAL EQUIPMENT PROVIDER PREFERENCE * List name and contact numbers for known caregivers / representatives who currently or will assist patient after discharge: OZZIE DOUGHERTY, SPOUSE, [phone] * Verbal permission to speak to the caregivers and representatives has been obtained from the patient. Yes * Community resources currently utilized None * Please name any agencies selected above. NONE * Additional services required to return to the preadmission environment? No * Can the patient safely return to the preadmission environment? Yes * Has this patient been hospitalized within the prior 30 days at any hospital? No Coverage Notice Reviewer: [id number] - Randall Garcia Notice Issued Date-Time: 08/05/2018 10:15 Notice Type: IM Discharge Notice Notice Delivered To: Patient Relationship to Patient: Creel Clerk Name: Delivery Method: HAND - Hand Delivered Teresa Days: Prior Verbal Notification: Recipient Understood Notice: Yes Recipient Signature: Yes Med Rec Note Co-signed by Attending: Coverage Notice Comment: Last DP export: 08/05/18 10:23 Patient Name: MISAEL DOUGHERTY Page [id number] at 1129 All edits/amendments must be made on the electronic document DICTATION DATE: 08/05/181128 CLINICAL CASE MANAGER: ELEANOR 08/05/18 112 RPT#: [id number] DC DATE: STATUS: ADM IN [facility] [address] [place] [address] END OF REPORT
--- NOTE | ~2018-07-31 | MORECARE ---
CASE MANAGEMENT DISCHARGE SUMMARY PATIENT: MISAEL DOUGHERTY UNIT: [id number] ADM DATE: 07/31/18 AGE: 78 : 39 SEX: M ROOM/BED: D.2585 AUTHOR: JUNIE,DOC PHYSICIAN: REFERRING PHYSICIAN: ESTELA ELLIS MD DATE OF SERVICE: 08/05/18 Discharge Plan Patient Name: MISAEL DOUGHERTY Facility: [facility]:[place] : 1940 Planned Disposition: Home with Home Health Anticipated Discharge Date: 08/05/18 Discharge Date: Expected LOS: 5 Initial Reviewer: [email or web address] Initial Review Date: 07/31/2018 Generated: 08/05/18 5:34 pm Comments DCP- Discharge Planning Updated by [email or web address]: Randall Garcia on 08/05/18 3:[address] Patient Name: MISAEL DOUGHERTY Encounter No: [id number] : 1940 Primary Insurance: MEDICARE A & B Anticipated DC Date: 08-05-2018 Planned Disposition: Home with Home Health External Planned Provider: [facility] DCP follow-up note: CM RECEIVED ORDERS FOR OXYGEN AND NEBULIZER. CM MET WITH PT AND SPOUSE IN ROOM, PT ASKED TO USE [facility] FOR OXYGEN AND NEBULIZER. CM CALLED [facility], , SPOKE TO FILIPE AND PROVIDED REFERRAL INFORMATION. CM FAXED REFERRAL TO [facility] AT [phone]. PT AND SPOUSE NOTIFIED. CM FAXED DISCHAGE INFORMATION TO [facility] AT [phone]. CM NOTIFED [facility] OF DISCHARGE AT [phone]. FILIPE OF [facility] TO ARRANGE PORTABLE OXYGEN DELIVERY TO PT'S ROOM FOR DISCHARGE HOME, WILL DELIVER HOME OXYGEN UNIT AND NEBULIZER TO PT'S HOME AFTER PT ARRIVES AT HOME. [facility] TO ADMIT PT TOMORROW AT HOME. Randall Garcia CASE MANAGEMENT DCP- Discharge Planning Updated by [email or web address]: Randall Garcia on 08/05/18 11:[address] Patient Name: MISAEL DOUGHERTY Admission Status: ER Accout number: [id number] Admission Date: 07-31-2018 : 1940 Admission Diagnosis: Attending: ESTELA ELLIS Current LOS: 5 Anticipated DC Date: 08-05-2018 Planned Disposition: Home with Home Health Primary Insurance: MEDICARE A & B PLANNED EXTERNAL PROVIDER: [facility] Discharge Planning Comments: CM RECEIVED ORDER FOR INPATIENT REHAB PRESCREENING. CM MET WITH PT AND SPOUSE IN ROOM TO DISCUSS DISCHARGE PLANNING AND NEEDS. MISAEL DOUGHERTY provided verbal consent to discuss current and ongoing needs with/in the presence of: SPOUSE, OZZIE. PT REPORTS LIVING AT HOME INDEPENDENTLY WITH SPOUSE. PT HAS NO MEDICAL EQUIPMENT AND NO OUTSIDE SERVICES ASSISTING IN THE HOME. PT IS HARD OF HEARING AND WEARS HEARING AIDE IN RIGHT EAR ONLY. CM REVIEWED CHART, OT EVALUATION COMPLETED AND RECOMMENDED HOME HEALTH, INPATIENT REHAB PRESCREENING COMPLETED AND PT NOT MEETING CRITERIA FOR INPATIENT REHAB. CM DISCUSSED AVAILABILITY OF HOME HEALTH, REHAB SERVICES AND MEDICAL EQUIPMENT. PT DOES NOT WANT [facility], DOES NOT FEEL HE IS DOING WELL ENOUGH FOR OUTPATIENT THERAPY SERVICES. PT AGREES WITH THERAPY SERVICES AND NURSING WITH HOME HEALTH. PT HAS HAD HOME HEALTH WITH [facility] IN THE PAST AND WOULD LIKE THEM AGAIN. CHOICE SIGNED. PT'S TO TRANSPORT HOME FOR DISCHARGE. IMPORTANT MESSAGE FROM MEDICARE PROVIDED AND EXPLAINED. CM CONTACTED [facility], NOTIFIED OF ABOVE AND REQUESTED HOME HEALTH ORDERS. PT AND SPOUSE BOTH DENIED FURTHER DISCHARGE NEEDS. CM CALLED [facility], , SPOKE TO ALONSO WHO PLACED PT ON ADMIT SCHEDULE FOR TOMORROW, 08-06-18. CM FAXED REFERRAL TO [facility] AT [phone]. WITH PHYSICIAN AGREEMENT AND ORDER, CM TO COMPLETE HOME HEALTH ARRANGEMENT WITH [facility]; PRIMARY CARE DOCTOR DR. CASTRO. CM TO FAX DISCHARGE INFORMATION AND HOME HEALTH ORDER TO [facility] AT [phone]; NOTIFY [facility] OF DISCHARGE AT [phone]. CM TO CONTINUE TO FOLLOW AND ASSIST NEEDED. Dairy Manager: Randall Garcia Appended by Randall Garcia on 08/05/2018 12:48 ALUMINUM SHEET CUTTER: CM RECEIVED HOME HEALTH ORDER, CM COMPLETED HOME HEALTH ARRANGEMENT WITH [facility]; FAXED HOME HEALTH ORDER TO [facility] AT [phone]. FOR DISCHARGE, FAX DISCHARGE INFORMATION TO [facility] AT [phone]; NOTIFY [facility] OF DISCHARGE AT [phone]. CM TO CONTINUE TO FOLLOW AND ASSIST NEEDED. Dairy Manager: Randall Garcia DCPIA - Discharge Planning Initial Assessment Updated by [email or web address]: Randall Garcia on 08/05/18 11:20 am * Is the patient Alert and Oriented? Yes * How many steps to enter\exit or inside your home? NONE * PCP DR. CASTRO * Pharmacy [facility] * Preadmission Environment Home with Family * ADLs Independent * Equipment None * Other Equipment NO MEDICAL EQUIPMENT PROVIDER PREFERENCE * List name and contact numbers for known caregivers / representatives who currently or will assist patient after discharge: OZZIE DOUGHERTY, SPOUSE, [phone] * Verbal permission to speak to the caregivers and representatives has been obtained from the patient. Yes * Community resources currently utilized None * Please name any agencies selected above. NONE * Additional services required to return to the preadmission environment? No * Can the patient safely return to the preadmission environment? Yes * Has this patient been hospitalized within the prior 30 days at any hospital? No External Providers External Provider: [facility] Next Contact Date: 08/05/2018 Service Request Date: Service Type: Resolution: Reviewer: Comments: Coverage Notice Reviewer: [id number] Johnathan Garcia Notice Issued Date-Time: 08/05/2018 10:15 Notice Type: IM Discharge Notice Notice Delivered To: Patient Relationship to Patient: Production Maintenance Mechanic Name: Delivery Method: HAND - Hand Delivered Teresa Days: Prior Verbal Notification: Recipient Understood Notice: Yes Recipient Signature: Yes Med Rec Note Co-signed by Attending: Coverage Notice Comment: Reviewer: [id number] Johnathan Garcia Notice Issued Date-Time: 08/05/2018 11:20 Notice Type: Patient Choice Letter Notice Delivered To: Family Member Relationship to Patient: Spouse Production Maintenance Mechanic Name: OZZIE DOUGHERTY Delivery Method: HAND - Hand Delivered Teresa Days: Prior Verbal Notification: Recipient Understood Notice: Yes Recipient Signature: Yes Med Rec Note Co-signed by Attending: Coverage Notice Comment: Last DP export: 08/05/18 11:50 Patient Name: MISAEL DOUGHERTY Page 51243 at 1635 All edits/amendments must be made on the electronic document DICTATION DATE: 08/05/180 PAPER PLATE MACHINE TENDER: ELEANOR 08/05/18 1633 RPT#: [id number] DC DATE: STATUS: ADM IN [facility] [address] [place] [address] END OF REPORT
--- NOTE | ~2018-07-31 | MORECARE ---
CASE MANAGEMENT DISCHARGE SUMMARY PATIENT: MISAEL DOUGHERTY UNIT: [id number] ADM DATE: 07/31/18 AGE: 78 : 39 SEX: M ROOM/BED: D.1332 AUTHOR: JUNIE,DOC PHYSICIAN: REFERRING PHYSICIAN: ESTELA ELLIS MD DATE OF SERVICE: 08/05/18 Discharge Plan Patient Name: MISAEL DOUGHERTY Facility: [facility]:[place] : 1940 Planned Disposition: Home with Home Health Anticipated Discharge Date: 08/05/18 Discharge Date: Expected LOS: 5 Initial Reviewer: [email or web address] Initial Review Date: 07/31/2018 Generated: 08/05/18 12:43 pm Comments DCP- Discharge Planning Updated by [email or web address]: Randall Garcia on 08/05/18 10:[address] Patient Name: MISAEL DOUGHERTY Admission Status: ER Accout number: [id number] Admission Date: 07-31-2018 : 1940 Admission Diagnosis: Attending: ESTELA ELLIS Current LOS: 5 Anticipated DC Date: 08-05-2018 Planned Disposition: Home with Home Health Primary Insurance: MEDICARE A & B PLANNED EXTERNAL PROVIDER: [facility] Discharge Planning Comments: CM RECEIVED ORDER FOR INPATIENT REHAB PRESCREENING. CM MET WITH PT AND SPOUSE IN ROOM TO DISCUSS DISCHARGE PLANNING AND NEEDS. MISAEL DOUGHERTY provided verbal consent to discuss current and ongoing needs with/in the presence of: SPOUSE, OZZIE. PT REPORTS LIVING AT HOME INDEPENDENTLY WITH SPOUSE. PT HAS NO MEDICAL EQUIPMENT AND NO OUTSIDE SERVICES ASSISTING IN THE HOME. PT IS HARD OF HEARING AND WEARS HEARING AIDE IN RIGHT EAR ONLY. CM REVIEWED CHART, OT EVALUATION COMPLETED AND RECOMMENDED HOME HEALTH, INPATIENT REHAB PRESCREENING COMPLETED AND PT NOT MEETING CRITERIA FOR INPATIENT REHAB. CM DISCUSSED AVAILABILITY OF HOME HEALTH, REHAB SERVICES AND MEDICAL EQUIPMENT. PT DOES NOT WANT [facility], DOES NOT FEEL HE IS DOING WELL ENOUGH FOR OUTPATIENT THERAPY SERVICES. PT AGREES WITH THERAPY SERVICES AND NURSING WITH HOME HEALTH. PT HAS HAD HOME HEALTH WITH [facility] IN THE PAST AND WOULD LIKE THEM AGAIN. CHOICE SIGNED. PT'S TO TRANSPORT HOME FOR DISCHARGE. IMPORTANT MESSAGE FROM MEDICARE PROVIDED AND EXPLAINED. CM CONTACTED [facility], NOTIFIED OF ABOVE AND REQUESTED HOME HEALTH ORDERS. PT AND SPOUSE BOTH DENIED FURTHER DISCHARGE NEEDS. CM CALLED [facility], , SPOKE TO ALONSO WHO PLACED PT ON ADMIT SCHEDULE FOR TOMORROW, 08-06-18. CM FAXED REFERRAL TO [facility] AT [phone]. WITH PHYSICIAN AGREEMENT AND ORDER, CM TO COMPLETE HOME HEALTH ARRANGEMENT WITH [facility]; PRIMARY CARE DOCTOR DR. CASTRO. CM TO FAX DISCHARGE INFORMATION AND HOME HEALTH ORDER TO [facility] AT [phone]; NOTIFY [facility] OF DISCHARGE AT [phone]. CM TO CONTINUE TO FOLLOW AND ASSIST NEEDED. Political Anthropologist: Randall Garcia DCPIA - Discharge Planning Initial Assessment Updated by [id number]: Randall Garcia on 08/05/18 11:20 am * Is the patient Alert and Oriented? Yes * How many steps to enter\exit or inside your home? NONE * PCP DR. CASTRO * Pharmacy [facility] * Preadmission Environment Home with Family * ADLs Independent * Equipment None * Other Equipment NO MEDICAL EQUIPMENT PROVIDER PREFERENCE * List name and contact numbers for known caregivers / representatives who currently or will assist patient after discharge: OZZIE DOUGHERTY, SPOUSE, [phone] * Verbal permission to speak to the caregivers and representatives has been obtained from the patient. Yes * Community resources currently utilized None * Please name any agencies selected above. NONE * Additional services required to return to the preadmission environment? No * Can the patient safely return to the preadmission environment? Yes * Has this patient been hospitalized within the prior 30 days at any hospital? No External Providers External Provider: [facility] Next Contact Date: 08/05/2018 Service Request Date: Service Type: Resolution: Reviewer: Comments: Coverage Notice Reviewer: [email or web address] Johnathan Garcia Notice Issued Date-Time: 08/05/2018 10:15 Notice Type: IM Discharge Notice Notice Delivered To: Patient Relationship to Patient: Auto Adjudication Specialist Name: Delivery Method: HAND - Hand Delivered Teresa Days: Prior Verbal Notification: Recipient Understood Notice: Yes Recipient Signature: Yes Med Rec Note Co-signed by Attending: Coverage Notice Comment: Reviewer: [id number] Johnathan Garcia Notice Issued Date-Time: 08/05/2018 11:20 Notice Type: Patient Choice Letter Notice Delivered To: Family Member Relationship to Patient: Spouse Auto Adjudication Specialist Name: OZZIE DOUGHERTY Delivery Method: HAND - Hand Delivered Teresa Days: Prior Verbal Notification: Recipient Understood Notice: Yes Recipient Signature: Yes Med Rec Note Co-signed by Attending: Coverage Notice Comment: Last DP export: 08/05/18 10:29 Patient Name: MISAEL DOUGHERTY Page [id number] at 1144 All edits/amendments must be made on the electronic document DICTATION DATE: 08/05/18 1143 BAR WELDER: ELEANOR 08/05/18 1143 RPT#: [id number] DC DATE: STATUS: ADM IN [facility] [address] [place] [address] END OF REPORT
--- NOTE | ~2018-07-31 | MORECARE ---
CASE MANAGEMENT DISCHARGE SUMMARY PATIENT: MISAEL DOUGHERTY UNIT: [id number] ADM DATE: 07/31/18 AGE: 78 : 39 SEX: M ROOM/BED: D.2674 AUTHOR: JUNIE,DOC PHYSICIAN: REFERRING PHYSICIAN: ESTELA ELLIS MD DATE OF SERVICE: 08/05/18 Discharge Plan Patient Name: MISAEL DOUGHERTY Facility: [facility]:[place] : 1940 Planned Disposition: Home with Home Health Anticipated Discharge Date: 08/05/18 Discharge Date: Expected LOS: 5 Initial Reviewer: [email or web address] Initial Review Date: 07/31/2018 Generated: 08/05/18 1:50 pm Comments DCP- Discharge Planning Updated by [email or web address]: Randall Garcia on 08/05/18 11:[address] Patient Name: MISAEL DOUGHERTY Admission Status: ER Accout number: [id number] Admission Date: 07-31-2018 : 1940 Admission Diagnosis: Attending: ESTELA ELLIS Current LOS: 5 Anticipated DC Date: 08-05-2018 Planned Disposition: Home with Home Health Primary Insurance: MEDICARE A & B PLANNED EXTERNAL PROVIDER: [facility] Discharge Planning Comments: CM RECEIVED ORDER FOR INPATIENT REHAB PRESCREENING. CM MET WITH PT AND SPOUSE IN ROOM TO DISCUSS DISCHARGE PLANNING AND NEEDS. MISAEL DOUGHERTY provided verbal consent to discuss current and ongoing needs with/in the presence of: SPOUSE, OZZIE. PT REPORTS LIVING AT HOME INDEPENDENTLY WITH SPOUSE. PT HAS NO MEDICAL EQUIPMENT AND NO OUTSIDE SERVICES ASSISTING IN THE HOME. PT IS HARD OF HEARING AND WEARS HEARING AIDE IN RIGHT EAR ONLY. CM REVIEWED CHART, OT EVALUATION COMPLETED AND RECOMMENDED HOME HEALTH, INPATIENT REHAB PRESCREENING COMPLETED AND PT NOT MEETING CRITERIA FOR INPATIENT REHAB. CM DISCUSSED AVAILABILITY OF HOME HEALTH, REHAB SERVICES AND MEDICAL EQUIPMENT. PT DOES NOT WANT [facility], DOES NOT FEEL HE IS DOING WELL ENOUGH FOR OUTPATIENT THERAPY SERVICES. PT AGREES WITH THERAPY SERVICES AND NURSING WITH HOME HEALTH. PT HAS HAD HOME HEALTH WITH [facility] IN THE PAST AND WOULD LIKE THEM AGAIN. CHOICE SIGNED. PT'S TO TRANSPORT HOME FOR DISCHARGE. IMPORTANT MESSAGE FROM MEDICARE PROVIDED AND EXPLAINED. CM CONTACTED [facility], NOTIFIED OF ABOVE AND REQUESTED HOME HEALTH ORDERS. PT AND SPOUSE BOTH DENIED FURTHER DISCHARGE NEEDS. CM CALLED [facility], , SPOKE TO ALONSO WHO PLACED PT ON ADMIT SCHEDULE FOR TOMORROW, 08-06-18. CM FAXED REFERRAL TO [facility] AT [phone]. WITH PHYSICIAN AGREEMENT AND ORDER, CM TO COMPLETE HOME HEALTH ARRANGEMENT WITH [facility]; PRIMARY CARE DOCTOR DR. CASTRO. CM TO FAX DISCHARGE INFORMATION AND HOME HEALTH ORDER TO [facility] AT [phone]; NOTIFY [facility] OF DISCHARGE AT [phone]. CM TO CONTINUE TO FOLLOW AND ASSIST NEEDED. Seat Cover Maker: Randall Garcia Appended by Randall Garcia on 08/05/2018 12:48 HOLE DIGGER: CM RECEIVED HOME HEALTH ORDER, CM COMPLETED HOME HEALTH ARRANGEMENT WITH [facility]; FAXED HOME HEALTH ORDER TO [facility] AT [phone]. FOR DISCHARGE, FAX DISCHARGE INFORMATION TO [facility] AT [phone]; NOTIFY [facility] OF DISCHARGE AT [phone]. CM TO CONTINUE TO FOLLOW AND ASSIST NEEDED. Seat Cover Maker: Randall Garcia DCPIA - Discharge Planning Initial Assessment Updated by [email or web address]: Randall Garcia on 08/05/18 11:20 am * Is the patient Alert and Oriented? Yes * How many steps to enter\exit or inside your home? NONE * PCP DR. CASTRO * Pharmacy [facility] * Preadmission Environment Home with Family * ADLs Independent * Equipment None * Other Equipment NO MEDICAL EQUIPMENT PROVIDER PREFERENCE * List name and contact numbers for known caregivers / representatives who currently or will assist patient after discharge: OZZIE DOUGHERTY, SPOUSE, [phone] * Verbal permission to speak to the caregivers and representatives has been obtained from the patient. Yes * Community resources currently utilized None * Please name any agencies selected above. NONE * Additional services required to return to the preadmission environment? No * Can the patient safely return to the preadmission environment? Yes * Has this patient been hospitalized within the prior 30 days at any hospital? No Coverage Notice Reviewer: [id number] - Randall Garcia Notice Issued Date-Time: 08/05/2018 10:15 Notice Type: IM Discharge Notice Notice Delivered To: Patient Relationship to Patient: Patient Flow Coordinator Name: Delivery Method: HAND - Hand Delivered Teresa Days: Prior Verbal Notification: Recipient Understood Notice: Yes Recipient Signature: Yes Med Rec Note Co-signed by Attending: Coverage Notice Comment: Reviewer: [id number] - Randall Garcia Notice Issued Date-Time: 08/05/2018 11:20 Notice Type: Patient Choice Letter Notice Delivered To: Family Member Relationship to Patient: Spouse Patient Flow Coordinator Name: OZZIE DOUGHERTY Delivery Method: HAND - Hand Delivered Teresa Days: Prior Verbal Notification: Recipient Understood Notice: Yes Recipient Signature: Yes Med Rec Note Co-signed by Attending: Coverage Notice Comment: Last DP export: 08/05/18 10:44 Patient Name: MISAEL DOUGHERTY Page 63381 at 1250 All edits/amendments must be made on the electronic document DICTATION DATE: 08/05/18 1250 CHILD CARE DIRECTOR: ELEANOR 08/05/18 1250 RPT#: [id number] DC DATE: STATUS: ADM IN [facility] [address] [place] [address] END OF REPORT
[2018-07-31 16:24] LABS: BASOPHILS 0.1 % (0-2); EOSINOPHILS 1.6 % (0-7); HEMATOCRIT 32.6 % (42.0-54.0); HEMOGLOBIN 9.5 g/dL (13.5-17.5); IMMATURE GRANULOCYTES 0.1 % (0-5); MCH 27.5 pg (26.0-34.0); MCHC 29.1 g/dL (31.0-37.0); MCV 94.5 fL (80.0-100.0); MEAN PLATELET VOLUME 8.9 fL (7.4-10.4); MONOCYTES 10.1 % (2-11); NEUTROPHILS 60.1 % (40-80); PLATELET COUNT 209 10x3/uL (130-400); RBC 3.45 10x6/uL (4.20-6.10); RDW 16.7 % (11.5-14.5); WBC 7.4 10x3/uL (4.8-10.8)
[2018-07-31 16:41] LABS: APTT 30.3 SECONDS (22.8-39.4); INR 1.24 (0.85-1.17); PROTIME 15.3 SECONDS (11.6-15.0)
[2018-07-31 16:43] LABS: D-DIMER-QUANTITATIVE 3.53 ug/mLFEU (0.20-0.54)
[2018-07-31 16:47] LABS: ALKALINE PHOSPHATASE 258 U/L (46-116); ALT (SGPT) 11 U/L (10-68); BILIRUBIN - TOTAL 0.35 mg/dL (0.2-1.3); CALC OSMOLALITY 290 mosm/kg (275-300); CALCIUM 8.4 mg/dL (8.5-10.1); CARBON DIOXIDE 25.8 mmol/L (21.0-32.0); CHLORIDE - SERUM 109 mmol/L (98-107); CREATININE - SERUM 2.2 mg/dL (0.6-1.3); POTASSIUM - SERUM 5.2 mmol/L (3.5-5.1); PROTEIN - SERUM 7.3 g/dL (6.4-8.2); SODIUM 142 mmol/L (136-145); UREA NITROGEN 37 mg/dL (7-18); eGFR NON AFRICAN AMERICAN 31 mL/min (90-120)
[2018-07-31 16:48] LABS: GLUCOSE 81 mg/dL (74-106)
[2018-07-31 17:01] LABS: APPEARANCE CLEAR (CLEAR); BILIRUBIN NEGATIVE (NEGATIVE); COLOR DK YELLOW (YELLOW); GLUCOSE 500 mg/dL (NEGATIVE); KETONE NEGATIVE (NEGATIVE); NITRITE NEGATIVE (NEGATIVE); PROTEIN 1+ mg/dL (NEGATIVE); UROBILINOGEN NORMAL (NORMAL)
[2018-07-31 17:04] LABS: BACTERIA FEW /hpf (NONE SEEN)
[2018-07-31 17:07] LABS: CKMB 0.5 U/L (0.0-3.6); CREATINE KINASE 11 UL (21-232); TROPONIN-I 0.054 ng/mL (0.000-0.060)
[2018-08-01] VITALS (23 sets, daily range): BP systolic 84–110; BP diastolic 40–63; Ht 175.3 cm; Wt 78.7 kg
[2018-08-01 02:43] LABS: BASOPHILS 0.2 % (0-2); EOSINOPHILS 0.2 % (0-7); HEMATOCRIT 33.2 % (42.0-54.0); HEMOGLOBIN 9.7 g/dL (13.5-17.5); IMMATURE GRANULOCYTES 0.5 % (0-5); LYMPHOCYTES 13.6 % (15-50); MCH 27.6 pg (26.0-34.0); MCHC 29.2 g/dL (31.0-37.0); MCV 94.6 fL (80.0-100.0); MEAN PLATELET VOLUME 9.2 fL (7.4-10.4); MONOCYTES 6.3 % (2-11); NEUTROPHILS 79.2 % (40-80); PLATELET COUNT 196 10x3/uL (130-400); RBC 3.51 10x6/uL (4.20-6.10); RDW 16.6 % (11.5-14.5); WBC 8.9 10x3/uL (4.8-10.8)
[2018-08-01 02:54] LABS: ALBUMIN 2.1 g/dL (3.4-5.0); ANION GAP 10.6 mmol/L (8-16); BILIRUBIN - TOTAL 0.41 mg/dL (0.2-1.3); CALCIUM 8.4 mg/dL (8.5-10.1); CARBON DIOXIDE 27.4 mmol/L (21.0-32.0); CREATININE - SERUM 2.2 mg/dL (0.6-1.3); PROTEIN - SERUM 7.2 g/dL (6.4-8.2)
[2018-08-01 14:49] LABS: POTASSIUM - SERUM 5.8 mmol/L (3.5-5.1); THYROID STIMULATING HORMONE 0.75 uIU/mL (0.36-3.74)
[2018-08-02] VITALS (11 sets, daily range): BP systolic 97–110; BP diastolic 51–67
[2018-08-02 04:33] LABS: BASOPHILS 0.1 % (0-2); EOSINOPHILS 1.4 % (0-7); HEMATOCRIT 33.2 % (42.0-54.0); HEMOGLOBIN 9.6 g/dL (13.5-17.5); IMMATURE GRANULOCYTES 0.1 % (0-5); LYMPHOCYTES 20.8 % (15-50); MCH 27.7 pg (26.0-34.0); MCHC 28.9 g/dL (31.0-37.0); MCV 95.7 fL (80.0-100.0); MEAN PLATELET VOLUME 9.1 fL (7.4-10.4); MONOCYTES 8.6 % (2-11); PLATELET COUNT 190 10x3/uL (130-400); RBC 3.47 10x6/uL (4.20-6.10); RDW 16.5 % (11.5-14.5)
[2018-08-02 04:57] LABS: ANION GAP 10.6 mmol/L (8-16); CALCIUM 8.5 mg/dL (8.5-10.1); CARBON DIOXIDE 28.9 mmol/L (21.0-32.0); CREATININE - SERUM 1.9 mg/dL (0.6-1.3); POTASSIUM - SERUM 5.5 mmol/L (3.5-5.1)
[2018-08-03] VITALS: BP 102/56
[2018-08-03 04:59] VITALS: BP 108/56
[2018-08-03 10:05] VITALS: BP 95/59
[2018-08-03 10:16] LABS: ANION GAP 10.4 mmol/L (8-16); CALCIUM 8.8 mg/dL (8.5-10.1); CARBON DIOXIDE 29.9 mmol/L (21.0-32.0); CREATININE - SERUM 1.8 mg/dL (0.6-1.3); POTASSIUM - SERUM 4.3 mmol/L (3.5-5.1)
[2018-08-03 13:23] VITALS: BP 176/96
[2018-08-03 19:07] VITALS: BP 160/86
[2018-08-03 20:30] VITALS: BP 101/53
[2018-08-04] VITALS (7 sets, daily range): BP systolic 90–114; BP diastolic 50–72
[2018-08-04 05:42] LABS: BASOPHILS 0.1 % (0-2); EOSINOPHILS 1.6 % (0-7); HEMATOCRIT 33.6 % (42.0-54.0); HEMOGLOBIN 10.4 g/dL (13.5-17.5); MCH 28.2 pg (26.0-34.0); MCV 91.1 fL (80.0-100.0); MEAN PLATELET VOLUME 9.7 fL (7.4-10.4); MONOCYTES 8.7 % (2-11); NEUTROPHILS 71.6 % (40-80); PLATELET COUNT 205 10x3/uL (130-400); RBC 3.69 10x6/uL (4.20-6.10); RDW 16.3 % (11.5-14.5); WBC 6.9 10x3/uL (4.8-10.8)
[2018-08-04 06:11] LABS: ANION GAP 10.7 mmol/L (8-16); CALCIUM 8.7 mg/dL (8.5-10.1); CARBON DIOXIDE 32.5 mmol/L (21.0-32.0); CREATININE - SERUM 1.8 mg/dL (0.6-1.3); POTASSIUM - SERUM 4.2 mmol/L (3.5-5.1)
[2018-08-05 03:30] VITALS: BP 81/52
[2018-08-05 04:50] LABS: BASOPHILS 0.3 % (0-2); EOSINOPHILS 1.1 % (0-7); HEMATOCRIT 36.5 % (42.0-54.0); HEMOGLOBIN 11.1 g/dL (13.5-17.5); IMMATURE GRANULOCYTES 0.3 % (0-5); LYMPHOCYTES 19.3 % (15-50); MCH 28.2 pg (26.0-34.0); MCHC 30.4 g/dL (31.0-37.0); MCV 92.6 fL (80.0-100.0); MEAN PLATELET VOLUME 9.9 fL (7.4-10.4); MONOCYTES 9.5 % (2-11); NEUTROPHILS 69.5 % (40-80); PLATELET COUNT 235 10x3/uL (130-400); RBC 3.94 10x6/uL (4.20-6.10); RDW 16.5 % (11.5-14.5); WBC 7.9 10x3/uL (4.8-10.8)
[2018-08-05 05:16] LABS: ANION GAP 11.1 mmol/L (8-16); CALCIUM 9.2 mg/dL (8.5-10.1); CARBON DIOXIDE 33.6 mmol/L (21.0-32.0); CREATININE - SERUM 2.1 mg/dL (0.6-1.3); MAGNESIUM - SERUM 1.7 mg/dL (1.8-2.4); PHOSPHOROUS 5.4 mg/dL (2.5-4.9); POTASSIUM - SERUM 4.7 mmol/L (3.5-5.1)
[2018-08-05 09:59] VITALS: BP 83/54
[2018-08-05 11:42] VITALS: BP 93/47
[2018-08-05] MEDS ORDERED: ZITHROMAX250 MG PO (14:55)
[2018-08-05] MEDS ORDERED: BETAPACE 120 M120 MG PO (14:56)
[2018-08-05 15:07] VITALS: BP 101/57
[2018-08-05] MEDS ORDERED: ATROVENT 0.02%2.5 ML UPD (15:17)
== END 2018-08-05 19:25 | disposition home health service (06) | DRG 177 ==
LOC: D.ER 15:30 → D.EDHOLD 21:11 → D.M2 21:11 → D.ICU 21:11 → D.M2 08-02 20:27
PROVIDERS: Emergency Medicine; Family Medicine; Internal Medicine Nephrology; Internal Medicine Pulmonary Disease
DX: J15.6 Pneumonia due to other Gram-negative bacteria (principal); J96.02 Acute respiratory failure with hypercapnia; J96.01 Acute respiratory failure with hypoxia; I50.23 Acute on chronic systolic (congestive) heart failure; I13.0 Hypertensive heart and chronic kidney disease with heart failure and stage 1 through stage 4 chronic kidney disease, or unspecified chronic kidney disease; N18.4 Chronic kidney disease, stage 4 (severe); N39.0 Urinary tract infection, site not specified; E11.22 Type 2 diabetes mellitus with diabetic chronic kidney disease; D64.9 Anemia, unspecified; I25.10 Atherosclerotic heart disease of native coronary artery without angina pectoris; E78.5 Hyperlipidemia, unspecified; E87.5 Hyperkalemia; B96.20 Unspecified Escherichia coli [E. coli] as the cause of diseases classified elsewhere; I27.20 Pulmonary hypertension, unspecified; D50.9 Iron deficiency anemia, unspecified; R00.0 Tachycardia, unspecified; Z87.891 Personal history of nicotine dependence

== ENCOUNTER 2018-08-10 15:45 | Inpatient (IN) | payer MEDICARE, OTHER ==
[2018-08-10] VITALS (8 sets, daily range): BP systolic 75–94; BP diastolic 35–74; BMI 26.4
[~2018-08-10] VITALS: Ht 175.3 cm; Wt 77.3 kg
--- NOTE | ~2018-08-10 | EC ---
PATIENT:MISAEL DOUGHERTY DATE OF SERVICE: 08/10/18 SEX: M MEDICAL RECORD: [id number] DATE OF : 38 LOCATION:[facility] AGE OF PATIENT: 78 ADMISSION DATE: 08/10/18 REFERRING PHYSICIAN: INTERPRETING PHYSICIAN: CHARITY QUEZADA MD ECHOCARDIOGRAM REPORT ECHO CHARGES 5 ECHO LIMITED Date: 08/11/18 CLINICAL DIAGNOSIS: CHF ECHOCARDIOGRAPHIC MEASUREMENTS (adult normal given) AC root (d.<3.7cm) 0 cm LV Septum d (<1.2 cm> 0 cm Valve Excursion 0 cm LV Septum (systole) 0 cm Left Atria (s.<4.0cm> 0 cm LVPW d(<1.2cm) 0 cm RV (d.<2.3cm) 0 cm LVPW (sytole) 0 cm LV diastole(<5.6CM) 0 cm MV E-F(>70mm/sec) 0 cm LV systole 0 cm LVOT Diameter 0 cm MV exc.(>10mm) 0 cm Est.ejection fraction (50-75%) 0 % DOPPLER: LVIT 0 cm/sec A 0 cm/sec E 0 cm/sec LA 0 cm/sec RVSP 0 mmHg LVOT 0 cm/sec AOP1/2T 0 m/s Asc. Ao 0 cm/sec RVOT 0 cm/sec RA 0 cm/sec PA 0 cm/sec AV Gradient Peak 0 mmHg AV Mean 0 mmHg AV Area 0 cm MV Gradient Peak 0 mmHg MV Mean 0 mmHg MV Area 0 cm COMMENTS: 0 0 0 LIMITED STUDY (2-D ONLY) COMPLETE ECHO DONE ON 08/01/18 Transportation Maintenance Operator: Luiza AGUILERAOE Occupational Therapist Rehab Manager: 1 Dr. Quezada TAPE# PACS Pericardial Effusion N DATE OF SERVICE: PROCEDURE: Limited echo for ejection fraction. FINDINGS: Left ventricular chamber size is within normal limits. Left ventricular systolic function is normal. Overall ejection fraction estimated at 55%. ECHOCARDIOGRAM REPORT [id number] MISAEL DOUGHERTY TRANSINT:[id number] Voice Confirmation ID: [id number] DOCUMENT ID: [id number] CHARITY QUEZADA MD at 1704 CC: [id number] DICTATION DATE: 08/11/18 1304 DIRECTOR RELIGIOUS EDUCATION: 08/11/18 1326 ADM IN [facility] [address] [place] [id number]
--- NOTE | ~2018-08-10 | MORECARE ---
CASE MANAGEMENT DISCHARGE SUMMARY PATIENT: MISAEL DOUGHERTY UNIT: [id number] ADM DATE: 08/10/18 AGE: 78 : 39 SEX: M ROOM/BED: D.2103 AUTHOR: JUNIE,DOC PHYSICIAN: REFERRING PHYSICIAN: JACK PEREZ MD DATE OF SERVICE: 08/27/18 Discharge Plan Patient Name: MISAEL DOUGHERTY Facility: [facility]:[place] : 1940 Planned Disposition: Inpatient Rehab Anticipated Discharge Date: 08/27/18 Discharge Date: Expected LOS: 17 Initial Reviewer: [email or web address] Initial Review Date: 08/18/2018 Generated: 08/27/18 5:05 pm Comments DCP- Discharge Planning Updated by [email or web address]: Randall Regalado on 08/26/18 2:[address] Patient Name: MISAEL DOUGHERTY Encounter No: [id number] : 1940 Primary Insurance: MEDICARE A & B Anticipated DC Date: Planned Disposition: Inpatient Rehab External Planned Provider: [facility] DCP follow-up note: CM SPOKE TO PT AND SPOUSE IN ROOM REGARDING DISCHARGE PLAN. PT REPORTS HE WANTS REHAB SOON POSSIBLE HE IS STRESSED OUT AND WANTS OUT OF THIS ROOM, TO REHAB AT [facility] IF POSSIBLE. PT'S SECOND CHOICE IS REHAB AT [facility], CHOICE PREVIOUSLY SIGNED. CM SPOKE TO TOO OF INPATIENT REHAB, DISCUSSED PT'S TREATMENT, TOO INFORMED CM THAT PT REMAINS GOOD CANDIDATE FOR INPATIENT REHAB, WAITING ON PULMONARY CONSULT AND RECOMMENDATIONS. PT AND SPOUSE NOTIFIED IN ROOM. SITA MOORE NOTIFIED. CM WAITING ADMISSION DETERMINATION FROM [facility]. Randall Regalado, CASE MANGEMENT Appended by Randall Regalado on 08/26/2018 15:39 BEEF SKINNER: CM SPOKE TO DR. ALBA WHO INFORMED CM THAT HE HAS CONSULTED AND IS IN AGREEMENT WITH DISCHARGE TO REHAB AND CAN GO TODAY. CM SPOKE TO TOO OF INPATIENT REHAB, THEY PLAN TO ACCEPT PT TOMORROW, 08-27-18 FOR REHAB. PT NOTIFIED, IN AGREEMENT WITH DISCHARGE TO INPATIENT REHAB. [facility] TO CONTACT MED 2 NURSE WITH ROOM NUMBER WHEN READY TO ACCEPT PT AND NURSE REPORT. RANDALL REGALADO, CASE MANAGEMENT DCP- Discharge Planning Updated by [id number]: Randall Regalado on 08/25/18 3:[address] Patient Name: MISAEL DOUGHERTY Encounter No: [id number] : 1940 Primary Insurance: MEDICARE A & B Anticipated DC Date: Planned Disposition: Inpatient Rehab External Planned Provider: [facility] IN[facility] DCP follow-up note: CM RECEIVED ORDER FOR INPATIENT REHAB PRESCREENING, PT IN BATHROOM SPOKE TO SPOUSE IN ROOM. SPOUSE REPORTS PT WILL NEED REHAB HE WENT HOME LAST TIME AND WAS BACK IN THE HOSPITAL IN TWO DAYS. SHE WOULD LIKE INPATIENT REHAB AT [facility] WITH PLAN TO RETURN HOME WITH SPOUSE AND [facility]. IF DECLINED FOR REHAB, THEY WANT REHAB AT [facility]. CHOICE FOR [facility] SIGNED. IMPORTANT MESSAGE FROM MEDICARE PROVIDED AND EXPLAINED. CM WAITING ADMISSION DETERMINATION FROM [facility] INPAT[facility]. DEVENDRA Kiran MANGEMENT DCP- Discharge Planning Updated by [email or web address]: Laure Lujan on 08/18/18 6:[address] Patient Name: MISAEL DOUGHERTY Admission Status: ER Accout number: [id number] Admission Date: 08-10-2018 : 1940 Admission Diagnosis:NONTRAUMATIC SUBARACHNOID HEMORRHAGE, UNSPECIFIED Attending: JACK PEREZ Current LOS: 8 Anticipated DC Date: Planned Disposition: Home Primary Insurance: MEDICARE A & B Discharge Planning Comments: CM met with patient spouse Michelle at bedside. Patient is deaf & non verbal. Michelle states that she plans on him returning home. She states that patient had [facility] prior to admission. She denies any discharge needs at this time. Patient may require rehab before returning home.CM will continue to follow and assist as needed with discharge planning / needs. Leveler: Laure Lujan DCPIA - Discharge Planning Initial Assessment Updated by [email or web address]: Laure Lujan on 08/18/18 6:59 pm * Is the patient Alert and Oriented? No * How many steps to enter\exit or inside your home? * PCP [facility] * Pharmacy [facility] [address] * Preadmission Environment Home with Family * ADLs Partial Dependent * Other Equipment 02, nebulizer, walker, cane, wheelchair, shower chair * List name and contact numbers for known caregivers / representatives who currently or will assist patient after discharge: Michelle Dougherty [phone] * Verbal permission to speak to the caregivers and representatives has been obtained from the patient. N/A * Community resources currently utilized Home Health * Please name any agencies selected above. [facility] * Additional services required to return to the preadmission environment? No * Can the patient safely return to the preadmission environment? Yes * Has this patient been hospitalized within the prior 30 days at any hospital? Yes Coverage Notice Reviewer: [email or web address] Regalado Notice Issued Date-Time: 08/25/2018 14:00 Notice Type: Patient Choice Letter Notice Delivered To: Family Member Relationship to Patient: Spouse Director News Name: MICHELLE DOUGHERTY Delivery Method: HAND - Hand Delivered Teresa Days: Prior Verbal Notification: Recipient Understood Notice: Yes Recipient Signature: Yes Med Rec Note Co-signed by Attending: Coverage Notice Comment: NHUNG ARENAS Reviewer: [email or web address] Regalado Notice Issued Date-Time: 08/25/2018 14:00 Notice Type: IM Discharge Notice Notice Delivered To: Family Member Relationship to Patient: Spouse Director News Name: MICHELLE DOUGHERTY Delivery Method: HAND - Hand Delivered Teresa Days: Prior Verbal Notification: Recipient Understood Notice: Yes Recipient Signature: Yes Med Rec Note Co-signed by Attending: Coverage Notice Comment: Last DP export: 08/27/18 7:03 Patient Name: MISAEL DOUGHERTY Page 92143 at 1605 All edits/amendments must be made on the electronic document DICTATION DATE: 08/27/18 160 INSPECTOR ALIGNING: ELEANOR 08/27/18 160 RPT#: [id number] DC DATE: STATUS: ADM IN [facility] [address] [place] [address] END OF REPORT
--- NOTE | ~2018-08-10 | MORECARE ---
CASE MANAGEMENT DISCHARGE SUMMARY PATIENT: MISAEL DOUGHERTY UNIT: [id number] ADM DATE: 08/10/18 AGE: 78 : 39 SEX: M ROOM/BED: D.2311 AUTHOR: LUIS ZAMAN PHYSICIAN: REFERRING PHYSICIAN: JACK PEREZ MD DATE OF SERVICE: 08/18/18 Discharge Plan Patient Name: MISAEL DOUGHERTY Facility: [facility]:[place] : 1940 Planned Disposition: Home Anticipated Discharge Date: Discharge Date: Expected LOS: Initial Reviewer: [email or web address] Initial Review Date: 08/18/2018 Generated: 08/18/18 8:00 pm DCPIA - Discharge Planning Initial Assessment Updated by [email or web address]: Laure Lujan on 08/18/18 6:59 pm * Is the patient Alert and Oriented? No * How many steps to enter\exit or inside your home? * PCP [facility] * Pharmacy [facility] [address] * Preadmission Environment Home with Family * ADLs Partial Dependent * Other Equipment 02, nebulizer, walker, cane, wheelchair, shower chair * List name and contact numbers for known caregivers / representatives who currently or will assist patient after discharge: Michelle Dougherty [phone] * Verbal permission to speak to the caregivers and representatives has been obtained from the patient. N/A * Community resources currently utilized Home Health * Please name any agencies selected above. [facility] * Additional services required to return to the preadmission environment? No * Can the patient safely return to the preadmission environment? Yes * Has this patient been hospitalized within the prior 30 days at any hospital? Yes Patient Name: MISAEL DOUGHERTY Page 31448 at 1900 All edits/amendments must be made on the electronic document DICTATION DATE: 08/18/181858 SECURITY EXPERT: ELEANOR 08/18/181858 RPT#: [id number] DC DATE: STATUS: ADM IN [facility] [address] [place] [address] END OF REPORT
--- NOTE | ~2018-08-10 | MORECARE ---
CASE MANAGEMENT DISCHARGE SUMMARY PATIENT: MISAEL DOUGHERTY UNIT: [id number] ADM DATE: 08/10/18 AGE: 78 : 39 SEX: M ROOM/BED: D.2103 AUTHOR: LUIS ZAMAN PHYSICIAN: REFERRING PHYSICIAN: JACK PEREZ MD DATE OF SERVICE: 08/26/18 Discharge Plan Patient Name: MISAEL DOUGHERTY Facility: [facility]:[place] : 1940 Planned Disposition: Inpatient Rehab Anticipated Discharge Date: Discharge Date: Expected LOS: Initial Reviewer: [email or web address] Initial Review Date: 08/18/2018 Generated: 08/26/18 12:29 pm Comments DCP- Discharge Planning Updated by [email or web address]: Randall Garcia on 08/25/18 3:[address] Patient Name: MISAEL DOUGHERTY Encounter No: [id number] : 1940 Primary Insurance: MEDICARE A & B Anticipated DC Date: Planned Disposition: Inpatient Rehab External Planned Provider: [facility] DCP follow-up note: CM RECEIVED ORDER FOR INPATIENT REHAB PRESCREENING, PT IN BATHROOM SPOKE TO SPOUSE IN ROOM. SPOUSE REPORTS PT WILL NEED REHAB HE WENT HOME LAST TIME AND WAS BACK IN THE HOSPITAL IN TWO DAYS. SHE WOULD LIKE INPATIENT REHAB AT [facility] WITH PLAN TO RETURN HOME WITH SPOUSE AND [facility]. IF DECLINED FOR REHAB, THEY WANT REHAB AT [facility]. CHOICE FOR [facility] SIGNED. IMPORTANT MESSAGE FROM MEDICARE PROVIDED AND EXPLAINED. CM WAITING ADMISSION DETERMINATION FROM [facility]. DEVENDRA Kiran DCP- Discharge Planning Updated by [email or web address]: Laure Lujan on 08/18/18 6:[address] Patient Name: MISAEL DOUGHERTY Admission Status: ER Accout number: [id number] Admission Date: 08-10-2018 : 1940 Admission Diagnosis:NONTRAUMATIC SUBARACHNOID HEMORRHAGE, UNSPECIFIED Attending: JACK PEREZ Current LOS: 8 Anticipated DC Date: Planned Disposition: Home Primary Insurance: MEDICARE A & B Discharge Planning Comments: CM met with patient spouse Michelle at bedside. Patient is deaf & non verbal. Michelle states that she plans on him returning home. She states that patient had [facility] prior to admission. She denies any discharge needs at this time. Patient may require rehab before returning home.CM will continue to follow and assist as needed with discharge planning / needs. Scooter Mechanic: Laure Lujan LAKESHA - Discharge Planning Initial Assessment Updated by [email or web address]: Laure Lujan on 08/18/18 6:59 pm * Is the patient Alert and Oriented? No * How many steps to enter\exit or inside your home? * PCP [facility] * Pharmacy [facility] [address] * Preadmission Environment Home with Family * ADLs Partial Dependent * Other Equipment 02, nebulizer, walker, cane, wheelchair, shower chair * List name and contact numbers for known caregivers / representatives who currently or will assist patient after discharge: Michelle Dougherty [phone] * Verbal permission to speak to the caregivers and representatives has been obtained from the patient. N/A * Community resources currently utilized Home Health * Please name any agencies selected above. [facility] * Additional services required to return to the preadmission environment? No * Can the patient safely return to the preadmission environment? Yes * Has this patient been hospitalized within the prior 30 days at any hospital? Yes External Providers External Provider: [facility] Next Contact Date: 08/26/2018 Service Request Date: Service Type: Resolution: Reviewer: Comments: Coverage Notice Reviewer: [email or web address] Johnathan Garcia Notice Issued Date-Time: 08/25/2018 14:00 Notice Type: Patient Choice Letter Notice Delivered To: Family Member Relationship to Patient: Spouse Bristle Machine Operator Name: MICHELLE DOUGHERTY Delivery Method: HAND - Hand Delivered Teresa Days: Prior Verbal Notification: Recipient Understood Notice: Yes Recipient Signature: Yes Med Rec Note Co-signed by Attending: Coverage Notice Comment: NHUNG ARENAS Reviewer: [email or web address] Johnathan Garcia Notice Issued Date-Time: 08/25/2018 14:00 Notice Type: IM Discharge Notice Notice Delivered To: Family Member Relationship to Patient: Spouse Bristle Machine Operator Name: MICHELLE DOUGHERTY Delivery Method: HAND - Hand Delivered Teresa Days: Prior Verbal Notification: Recipient Understood Notice: Yes Recipient Signature: Yes Med Rec Note Co-signed by Attending: Coverage Notice Comment: Last DP export: 08/25/18 4:06 Patient Name: MISAEL DOUGHERTY Page 52496 at 1129 All edits/amendments must be made on the electronic document DICTATION DATE: 08/26/181128 MUSSEL FARMER: ELEANOR 08/26/181128 RPT#: [id number] DC DATE: STATUS: ADM IN [facility] [address] [place] [address] END OF REPORT
--- NOTE | ~2018-08-10 | MORECARE ---
CASE MANAGEMENT DISCHARGE SUMMARY PATIENT: MISAEL DOUGHERTY UNIT: [id number] ADM DATE: 08/10/18 AGE: 78 : 39 SEX: M ROOM/BED: D.2103 AUTHOR: JUNIE,DOC PHYSICIAN: REFERRING PHYSICIAN: JACK PEREZ MD DATE OF SERVICE: 08/26/18 Discharge Plan Patient Name: MISAEL DOUGHERTY Facility: [facility]:[place] : 1940 Planned Disposition: Inpatient Rehab Anticipated Discharge Date: 08/27/18 Discharge Date: Expected LOS: 17 Initial Reviewer: [email or web address] Initial Review Date: 08/18/2018 Generated: 08/26/18 4:50 pm Comments DCP- Discharge Planning Updated by [email or web address]: Randall Regalado on 08/26/18 2:[address] Patient Name: MISAEL DOUGHERTY Encounter No: [id number] : 1940 Primary Insurance: MEDICARE A & B Anticipated DC Date: Planned Disposition: Inpatient Rehab External Planned Provider: [facility] INPATIENT REHAB DCP follow-up note: CM SPOKE TO PT AND SPOUSE IN ROOM REGARDING DISCHARGE PLAN. PT REPORTS HE WANTS REHAB SOON POSSIBLE HE IS STRESSED OUT AND WANTS OUT OF THIS ROOM, TO REHAB AT [place] IF POSSIBLE. PT'S SECOND CHOICE IS REHAB AT [facility], CHOICE PREVIOUSLY SIGNED. CM SPOKE TO TOO OF INPATIENT REHAB, DISCUSSED PT'S TREATMENT, TOO INFORMED CM THAT PT REMAINS GOOD CANDIDATE FOR INPATIENT REHAB, WAITING ON PULMONARY CONSULT AND RECOMMENDATIONS. PT AND SPOUSE NOTIFIED IN ROOM. SITA MOORE NOTIFIED. CM WAITING ADMISSION DETERMINATION FROM [facility] INPATIENT REHAB. Randall Regalado, CASE MANGEMENT Appended by Randall Regalado on 08/26/2018 15:39 MUD CLEANER OPERATOR: CM SPOKE TO DR. ALBA WHO INFORMED CM THAT HE HAS CONSULTED AND IS IN AGREEMENT WITH DISCHARGE TO REHAB AND CAN GO TODAY. CM SPOKE TO TOO OF INPATIENT REHAB, THEY PLAN TO ACCEPT PT TOMORROW, 08-27-18 FOR REHAB. PT NOTIFIED, IN AGREEMENT WITH DISCHARGE TO INPATIENT REHAB. [facility] INPATIENT [facility] TO CONTACT MED 2 NURSE WITH ROOM NUMBER WHEN READY TO ACCEPT PT AND NURSE REPORT. RANDALL REGALADO, CASE MANAGEMENT DCP- Discharge Planning Updated by [id number]: Randall Regalado on 08/25/18 3:[address] Patient Name: MISAEL DOUGHERTY Encounter No: [id number] : 1940 Primary Insurance: MEDICARE A & B Anticipated DC Date: Planned Disposition: Inpatient Rehab External Planned Provider: [facility] INPATIENT REHAB DCP follow-up note: CM RECEIVED ORDER FOR INPATIENT REHAB PRESCREENING, PT IN BATHROOM SPOKE TO SPOUSE IN ROOM. SPOUSE REPORTS PT WILL NEED REHAB HE WENT HOME LAST TIME AND WAS BACK IN THE HOSPITAL IN TWO DAYS. SHE WOULD LIKE INPATIENT REHAB AT [place] WITH PLAN TO RETURN HOME WITH SPOUSE AND [facility]. IF DECLINED FOR REHAB, THEY WANT REHAB AT [facility]. CHOICE FOR [facility] SIGNED. IMPORTANT MESSAGE FROM MEDICARE PROVIDED AND EXPLAINED. CM WAITING ADMISSION DETERMINATION FROM [facility] INPATIENT RE[facility]. DEVENDRA Kiran MANGEMENT DCP- Discharge Planning Updated by [id number]: Laure Lujan on 08/18/18 6:[address] Patient Name: MISAEL DOUGHERTY Admission Status: ER Accout number: [id number] Admission Date: 08-10-2018 : 1940 Admission Diagnosis:NONTRAUMATIC SUBARACHNOID HEMORRHAGE, UNSPECIFIED Attending: JACK PEREZ Current LOS: 8 Anticipated DC Date: Planned Disposition: Home Primary Insurance: MEDICARE A & B Discharge Planning Comments: CM met with patient spouse Michelle at bedside. Patient is deaf & non verbal. Michelle states that she plans on him returning home. She states that patient had [facility] prior to admission. She denies any discharge needs at this time. Patient may require rehab before returning home.CM will continue to follow and assist as needed with discharge planning / needs. First Aid Attendant: Laure Lujan DCPIA - Discharge Planning Initial Assessment Updated by [id number]: Laure Lujan on 08/18/18 6:59 pm * Is the patient Alert and Oriented? No * How many steps to enter\exit or inside your home? * PCP [facility] * Pharmacy [facility] [address] * Preadmission Environment Home with Family * ADLs Partial Dependent * Other Equipment 02, nebulizer, walker, cane, wheelchair, shower chair * List name and contact numbers for known caregivers / representatives who currently or will assist patient after discharge: Michelle Dougherty [phone] * Verbal permission to speak to the caregivers and representatives has been obtained from the patient. N/A * Community resources currently utilized Home Health * Please name any agencies selected above. [facility] * Additional services required to return to the preadmission environment? No * Can the patient safely return to the preadmission environment? Yes * Has this patient been hospitalized within the prior 30 days at any hospital? Yes Coverage Notice Reviewer: [id number] Regalado Notice Issued Date-Time: 08/25/2018 14:00 Notice Type: Patient Choice Letter Notice Delivered To: Family Member Relationship to Patient: Spouse Shoe Salesman Name: MICHELLE DOUGHERTY Delivery Method: HAND - Hand Delivered Teresa Days: Prior Verbal Notification: Recipient Understood Notice: Yes Recipient Signature: Yes Med Rec Note Co-signed by Attending: Coverage Notice Comment: NHUNG ARENAS Reviewer: [id number] Regalado Notice Issued Date-Time: 08/25/2018 14:00 Notice Type: IM Discharge Notice Notice Delivered To: Family Member Relationship to Patient: Spouse Shoe Salesman Name: MICHELLE DOUGHERTY Delivery Method: HAND - Hand Delivered Teresa Days: Prior Verbal Notification: Recipient Understood Notice: Yes Recipient Signature: Yes Med Rec Note Co-signed by Attending: Coverage Notice Comment: Last DP export: 08/26/18 11:05 Patient Name: MISAEL DOUGHERTY Page 24708 at 1550 All edits/amendments must be made on the electronic document DICTATION DATE: 08/26/181548 INSURANCE SALES PROFESSIONAL: ELEANOR 08/26/18 154 RPT#: [id number] DC DATE: STATUS: ADM IN [facility] [address] [place] [address] END OF REPORT
--- NOTE | ~2018-08-10 | MORECARE ---
CASE MANAGEMENT DISCHARGE SUMMARY PATIENT: MISAEL DOUGHERTY UNIT: [id number] ADM DATE: 08/10/18 AGE: 78 : 39 SEX: M ROOM/BED: D.2311 AUTHOR: JUNIEDOC PHYSICIAN: REFERRING PHYSICIAN: JACK PEREZ MD DATE OF SERVICE: 08/18/18 Discharge Plan Patient Name: MISAEL DOUGHERTY Facility: [facility]:[place] : 1940 Planned Disposition: Home Anticipated Discharge Date: Discharge Date: Expected LOS: Initial Reviewer: [id number] Initial Review Date: 08/18/2018 Generated: 08/18/18 8:08 pm Comments DCP- Discharge Planning Updated by [email or web address]: Laure Lujan on 08/18/18 6:[address] Patient Name: MISAEL DOUGHERTY Admission Status: ER Accout number: [id number] Admission Date: 08-10-2018 : 1940 Admission Diagnosis:NONTRAUMATIC SUBARACHNOID HEMORRHAGE, UNSPECIFIED Attending: JACK PEREZ Current LOS: 8 Anticipated DC Date: Planned Disposition: Home Primary Insurance: MEDICARE A & B Discharge Planning Comments: CM met with patient spouse Michelle at bedside. Patient is deaf & non verbal. Michelle states that she plans on him returning home. She states that patient had [facility] prior to admission. She denies any discharge needs at this time. Patient may require rehab before returning home.CM will continue to follow and assist as needed with discharge planning / needs. Communications Electrician Supervisor: Laure Lujan DCPIA - Discharge Planning Initial Assessment Updated by [email or web address]: Laure Lujan on 08/18/18 6:59 pm * Is the patient Alert and Oriented? No * How many steps to enter\exit or inside your home? * PCP [place] * Pharmacy [facility] [address] * Preadmission Environment Home with Family * ADLs Partial Dependent * Other Equipment 02, nebulizer, walker, cane, wheelchair, shower chair * List name and contact numbers for known caregivers / representatives who currently or will assist patient after discharge: Michelle Dougherty [phone] * Verbal permission to speak to the caregivers and representatives has been obtained from the patient. N/A * Community resources currently utilized Home Health * Please name any agencies selected above. [facility] * Additional services required to return to the preadmission environment? No * Can the patient safely return to the preadmission environment? Yes * Has this patient been hospitalized within the prior 30 days at any hospital? Yes Last DP export: 08/18/18 6:00 p Patient Name: MISAEL DOUGHERTY Page 10456 at 1908 All edits/amendments must be made on the electronic document DICTATION DATE: 08/18/181907 INSPECTOR FINAL ASSEMBLY CONVEYOR LINE: ELEANOR 08/18/181907 RPT#: [id number] DC DATE: STATUS: ADM IN [facility] [address] [place] [address] END OF REPORT
--- NOTE | ~2018-08-10 | MORECARE ---
CASE MANAGEMENT DISCHARGE SUMMARY PATIENT: MISAEL DOUGHERTY UNIT: [id number] ADM DATE: 08/10/18 AGE: 78 : 39 SEX: M ROOM/BED: D.2103 AUTHOR: LUIS ZAMAN PHYSICIAN: REFERRING PHYSICIAN: JACK PEREZ MD DATE OF SERVICE: 08/25/18 Discharge Plan Patient Name: MISAEL DOUGHERTY Facility: [facility]:[place] : 1940 Planned Disposition: Inpatient Rehab Anticipated Discharge Date: Discharge Date: Expected LOS: Initial Reviewer: [id number] Initial Review Date: 08/18/2018 Generated: 08/25/18 6:06 pm Comments DCP- Discharge Planning Updated by [email or web address]: Randall Garcia on 08/25/18 3:[address] Patient Name: MISAEL DOUGHERTY Encounter No: [id number] : 1940 Primary Insurance: MEDICARE A & B Anticipated DC Date: Planned Disposition: Inpatient Rehab External Planned Provider: [facility] INPATIENT REHAB DCP follow-up note: CM RECEIVED ORDER FOR INPATIENT REHAB PRESCREENING, PT IN BATHROOM SPOKE TO SPOUSE IN ROOM. SPOUSE REPORTS PT WILL NEED REHAB HE WENT HOME LAST TIME AND WAS BACK IN THE HOSPITAL IN TWO DAYS. SHE WOULD LIKE INPATIENT REHAB AT [place] WITH PLAN TO RETURN HOME WITH SPOUSE AND [facility]. IF DECLINED FOR REHAB, THEY WANT REHAB AT [facility]. CHOICE FOR [facility] SIGNED. IMPORTANT MESSAGE FROM MEDICARE PROVIDED AND EXPLAINED. CM WAITING ADMISSION DETERMINATION FROM [facility] INPATIENT REHAB. DEVENDRA Kiran DCP- Discharge Planning Updated by [id number]: Laure Lujan on 08/18/18 6:[address] Patient Name: MISAEL DOUGHERTY Admission Status: ER Accout number: [id number] Admission Date: 08-10-2018 : 1940 Admission Diagnosis:NONTRAUMATIC SUBARACHNOID HEMORRHAGE, UNSPECIFIED Attending: JACK PEREZ Current LOS: 8 Anticipated DC Date: Planned Disposition: Home Primary Insurance: MEDICARE A & B Discharge Planning Comments: CM met with patient spouse Michelle at bedside. Patient is deaf & non verbal. Michelle states that she plans on him returning home. She states that patient had [facility] prior to admission. She denies any discharge needs at this time. Patient may require rehab before returning home.CM will continue to follow and assist as needed with discharge planning / needs. Ice Cream Truck Driver: Laure Lujan LAKESHA - Discharge Planning Initial Assessment Updated by [id number]: Laure Lujan on 08/18/18 6:59 pm * Is the patient Alert and Oriented? No * How many steps to enter\exit or inside your home? * PCP [facility] * Pharmacy [facility] [address] * Preadmission Environment Home with Family * ADLs Partial Dependent * Other Equipment 02, nebulizer, walker, cane, wheelchair, shower chair * List name and contact numbers for known caregivers / representatives who currently or will assist patient after discharge: Michelle Dougherty [phone] * Verbal permission to speak to the caregivers and representatives has been obtained from the patient. N/A * Community resources currently utilized Home Health * Please name any agencies selected above. [facility] * Additional services required to return to the preadmission environment? No * Can the patient safely return to the preadmission environment? Yes * Has this patient been hospitalized within the prior 30 days at any hospital? Yes Coverage Notice Reviewer: [id number] Garcia Notice Issued Date-Time: 08/25/2018 14:00 Notice Type: Patient Choice Letter Notice Delivered To: Family Member Relationship to Patient: Spouse Printing Engineer Name: MICHELLE DOUGHERTY Delivery Method: HAND - Hand Delivered Teresa Days: Prior Verbal Notification: Recipient Understood Notice: Yes Recipient Signature: Yes Med Rec Note Co-signed by Attending: Coverage Notice Comment: NHUNG ARENAS Reviewer: [id number] Johnathan Garcia Notice Issued Date-Time: 08/25/2018 14:00 Notice Type: IM Discharge Notice Notice Delivered To: Family Member Relationship to Patient: Spouse Printing Engineer Name: MICHELLE DOUGHERTY Delivery Method: HAND - Hand Delivered Teresa Days: Prior Verbal Notification: Recipient Understood Notice: Yes Recipient Signature: Yes Med Rec Note Co-signed by Attending: Coverage Notice Comment: Last DP export: 08/18/18 6:15 p Patient Name: MISAEL DOUGHERTY Page 79861 at 1706 All edits/amendments must be made on the electronic document DICTATION DATE: 08/25/181704 CINEMA OPERATOR: ELEANOR 08/25/181704 RPT#: [id number] DC DATE: STATUS: ADM IN [facility] [address] [place] [address] END OF REPORT
--- NOTE | ~2018-08-10 | CN ---
PATIENT NAME:MISAEL DOUGHERTY MEDICAL RECORD: [id number] : [birth year] LOCATION:D. D.2103 ADMIT DATE: 08/10/18 ACCOUNT: [id number] CONSULTING PHYSICIAN: BRAEDEN ALBA MD REFERRING PHYSICIAN: JACK PEREZ MD DATE OF CONSULTATION: 08/26/2018 CONSULT REQUESTING PHYSICIAN: Elvis Ng MD REASON FOR CONSULTATION: Chronic hypoxic respiratory failure. HISTORY OF PRESENT ILLNESS: Mr. Dougherty is a 78-year-old gentleman who was well known to me. The patient admitted with mental status changes and subdural hematoma. Also, a few weeks ago, the patient was admitted with acute congestive heart failure and bilateral pleural effusion. He had thoracentesis on the 19 of August with 1300 cc of transudative fluid aspirated. Now, the patient is mainly lying in bed. His mental status changes have significantly improved. He continuously requires 4-5 liters nasal cannula oxygen. REVIEW OF THE SYSTEMS: As in history of present illness. PAST MEDICAL HISTORY: 1. Hypertension. 2. Congestive heart failure. 3. Chronic kidney disease. 4. Anemia. 5. History of pneumonia. 6. History of hypertension. 7. History of bilateral pleural effusion. 8. History of psoriasis. 9. History of arthritis. 10. Hard of hearing. 11. Coronary artery disease. 12. COPD with history of smoking. PAST SURGICAL HISTORY: 1. Herniorrhaphy. 2. Right shoulder surgery. 3. Cataract surgery. 4. Kidney stone removed. ALLERGIES: HE IS ALLERGIC TO HYDROCODONE AND RED DYE. MEDICATIONS: [employer] was reviewed. PERSONAL AND SOCIAL HISTORY: The patient is an ex-smoker. He is nondrinker. and lives with his . FAMILY HISTORY: Noncontributory. PHYSICAL EXAMINATION: GENERAL: Now, the patient is lying comfortably in bed. He is not in acute distress. VITAL SIGNS: The blood pressure is 112/58, pulse is 84, respiration is 18, temperature is 97.7, and SpO2 is 100% on 5 liters nasal cannula. CONSULT REPORT [id number] MISAEL DOUGHERTY HEENT: Conjunctivae are pink. Sclerae are not icteric. NECK: Neck is supple. No JVD. CHEST: The chest excursion is minimal on both sides. Wheezes on forceful expiration. HEART: Rhythm regular. Normal sound. No murmur. ABDOMEN: Abdomen is soft. Bowel sounds present. No hepatosplenomegaly. RECTAL: Deferred. EXTREMITIES: No cyanosis. No clubbing. No pedal edema. SKIN: The skin is warm. Normal turgor. CENTRAL NERVOUS SYSTEM: The patient is awake and alert. There is no obvious cranial nerve abnormality. The gait was not tested. DIAGNOSTIC DATA: Chest radiograph; there is increased interstitial marking and small pleural effusion. LABORATORY DATA: CBC; WBC is 6.4, hemoglobin 8.7, hematocrit 28.9, and platelet count 157. Chemistry; sodium 139, potassium is 4, BUN is 38, and creatinine 1.6. IMPRESSION: 1. Chronic hypoxic respiratory failure. 2. Congestive heart failure, chronic systolic dysfunction. 3. Atelectasis, lower lobe. 4. COPD without exacerbation. 5. Subdural hematoma. 6. Pleural effusion. 7. Chronic kidney disease. RECOMMENDATIONS: 1. Start albuterol/ipratropium nebulizer. 2. Brovana and budesonide nebulizer. 3. Mucinex 1200 mg b.i.d. 4. Start on Lasix. 5. Incentive spirometer q. 2. hourly when awake. 6. Mobilize. 7. Titrate the oxygen to about 90%. Dr. Ng, thank you for involving me in the care of Mr. Dougherty. TRANSINT:[id number] Voice Confirmation ID: [id number] DOCUMENT ID: [id number] BRAEDEN ALBA MD at 1339 CC: [id number] DICTATION DATE: 08/26/18 1520 DATA SCIENCES DIRECTOR: 08/26/18 1659 DIS IN 08/27/18 [place] [address] [place] [address]
--- NOTE | ~2018-08-10 | MORECARE ---
CASE MANAGEMENT DISCHARGE SUMMARY PATIENT: MISAEL DOUGHERTY UNIT: [id number] ADM DATE: 08/10/18 AGE: 78 : 39 SEX: M ROOM/BED: D.2311 AUTHOR: JUNIEDOC PHYSICIAN: REFERRING PHYSICIAN: JACK PEREZ MD DATE OF SERVICE: 08/18/18 Discharge Plan Patient Name: MISAEL DOUGHERTY Facility: [facility]:[place] : 1940 Planned Disposition: Home Anticipated Discharge Date: Discharge Date: Expected LOS: Initial Reviewer: [email or web address] Initial Review Date: 08/18/2018 Generated: 08/18/18 8:15 pm Comments DCP- Discharge Planning Updated by [email or web address]: Laure Lujan on 08/18/18 6:[address] Patient Name: MISAEL DOUGHERTY Admission Status: ER Accout number: [id number] Admission Date: 08-10-2018 : 1940 Admission Diagnosis:NONTRAUMATIC SUBARACHNOID HEMORRHAGE, UNSPECIFIED Attending: JACK PEREZ Current LOS: 8 Anticipated DC Date: Planned Disposition: Home Primary Insurance: MEDICARE A & B Discharge Planning Comments: CM met with patient spouse Michelle at bedside. Patient is deaf & non verbal. Michelle states that she plans on him returning home. She states that patient had [facility] prior to admission. She denies any discharge needs at this time. Patient may require rehab before returning home.CM will continue to follow and assist as needed with discharge planning / needs. Brake Drum Molder: Laure Lujan DCPIA - Discharge Planning Initial Assessment Updated by [id number]: Laure Lujan on 08/18/18 6:59 pm * Is the patient Alert and Oriented? No * How many steps to enter\exit or inside your home? * PCP [facility] * Pharmacy [facility] [address] * Preadmission Environment Home with Family * ADLs Partial Dependent * Other Equipment 02, nebulizer, walker, cane, wheelchair, shower chair * List name and contact numbers for known caregivers / representatives who currently or will assist patient after discharge: Michelle Dougherty [phone] * Verbal permission to speak to the caregivers and representatives has been obtained from the patient. N/A * Community resources currently utilized Home Health * Please name any agencies selected above. [facility] * Additional services required to return to the preadmission environment? No * Can the patient safely return to the preadmission environment? Yes * Has this patient been hospitalized within the prior 30 days at any hospital? Yes Last DP export: 08/18/18 6:00 p Patient Name: MISAEL DOUGHERTY Page 66951 at 1915 All edits/amendments must be made on the electronic document DICTATION DATE: 08/18/181914 MARZIPAN MOLDER: ELEANOR 08/18/181914 RPT#: [id number] DC DATE: STATUS: ADM IN [facility] [address] [place] [address] END OF REPORT
--- NOTE | ~2018-08-10 | MORECARE ---
CASE MANAGEMENT DISCHARGE SUMMARY PATIENT: MISAEL DOUGHERTY UNIT: [id number] ADM DATE: 08/10/18 AGE: 78 : 39 SEX: M ROOM/BED: D.2103 AUTHOR: JNUIE,DOC PHYSICIAN: REFERRING PHYSICIAN: JACK PEREZ MD DATE OF SERVICE: 08/26/18 Discharge Plan Patient Name: MISAEL DOUGHERTY Facility: [facility]:[place] : 1940 Planned Disposition: Inpatient Rehab Anticipated Discharge Date: Discharge Date: Expected LOS: Initial Reviewer: [id number] Initial Review Date: 08/18/2018 Generated: 08/26/18 1:05 pm Comments DCP- Discharge Planning Updated by [email or web address]: Randall Garcia on 08/26/18 10:[address] Patient Name: MISAEL DOUGHERTY Encounter No: [id number] : 1940 Primary Insurance: MEDICARE A & B Anticipated DC Date: Planned Disposition: Inpatient Rehab External Planned Provider: [facility] INPATIENT REHAB DCP follow-up note: CM SPOKE TO PT AND SPOUSE IN ROOM REGARDING DISCHARGE PLAN. PT REPORTS HE WANTS REHAB SOON POSSIBLE HE IS STRESSED OUT AND WANTS OUT OF THIS ROOM, TO REHAB AT [place] IF POSSIBLE. PT'S SECOND CHOICE IS REHAB AT [facility], CHOICE PREVIOUSLY SIGNED. CM SPOKE TO TOO OF INPATIENT REHAB, DISCUSSED PT'S TREATMENT, TOO INFORMED CM THAT PT REMAINS GOOD CANDIDATE FOR INPATIENT REHAB, WAITING ON PULMONARY CONSULT AND RECOMMENDATIONS. PT AND SPOUSE NOTIFIED IN ROOM. SITA MOORE NOTIFIED. CM WAITING ADMISSION DETERMINATION FROM [facility] INPATIENT REHAB. Randall Garcia, DEVENDRA MANGEMENT DCP- Discharge Planning Updated by [id number]: Randall Garcia on 08/25/18 3:[address] Patient Name: MISAEL DOUGHERTY Encounter No: [id number] : 1940 Primary Insurance: MEDICARE A & B Anticipated DC Date: Planned Disposition: Inpatient Rehab External Planned Provider: [facility] INPATIENT REHAB DCP follow-up note: CM RECEIVED ORDER FOR INPATIENT REHAB PRESCREENING, PT IN BATHROOM SPOKE TO SPOUSE IN ROOM. SPOUSE REPORTS PT WILL NEED REHAB HE WENT HOME LAST TIME AND WAS BACK IN THE HOSPITAL IN TWO DAYS. SHE WOULD LIKE INPATIENT REHAB AT [place] WITH PLAN TO RETURN HOME WITH SPOUSE AND [facility]. IF DECLINED FOR REHAB, THEY WANT REHAB AT [facility]. CHOICE FOR [facility] SIGNED. IMPORTANT MESSAGE FROM MEDICARE PROVIDED AND EXPLAINED. CM WAITING ADMISSION DETERMINATION FROM [facility] INPATIENT REHAB. Randall Garcia, DEVENDRA MANGAMERICA DCP- Discharge Planning Updated by [id number]: Laure Lujan on 08/18/18 6:[address] Patient Name: MISAEL DOUGHERTY Admission Status: ER Accout number: [id number] Admission Date: 08-10-2018 : 1940 Admission Diagnosis:NONTRAUMATIC SUBARACHNOID HEMORRHAGE, UNSPECIFIED Attending: JACK PEREZ Current LOS: 8 Anticipated DC Date: Planned Disposition: Home Primary Insurance: MEDICARE A & B Discharge Planning Comments: CM met with patient spouse Michelle at bedside. Patient is deaf & non verbal. Michelle states that she plans on him returning home. She states that patient had [facility] prior to admission. She denies any discharge needs at this time. Patient may require rehab before returning home.CM will continue to follow and assist as needed with discharge planning / needs. Real Estate Broker: Laure Lujan DCPIHao - Discharge Planning Initial Assessment Updated by [id number]: Laure Lujan on 08/18/18 6:59 pm * Is the patient Alert and Oriented? No * How many steps to enter\exit or inside your home? * PCP Bowen * Pharmacy [facility] [address] * Preadmission Environment Home with Family * ADLs Partial Dependent * Other Equipment 02, nebulizer, walker, cane, wheelchair, shower chair * List name and contact numbers for known caregivers / representatives who currently or will assist patient after discharge: Michelle Dougherty [phone] * Verbal permission to speak to the caregivers and representatives has been obtained from the patient. N/A * Community resources currently utilized Home Health * Please name any agencies selected above. [facility] * Additional services required to return to the preadmission environment? No * Can the patient safely return to the preadmission environment? Yes * Has this patient been hospitalized within the prior 30 days at any hospital? Yes Coverage Notice Reviewer: [id number] Johnathan Garcia Notice Issued Date-Time: 08/25/2018 14:00 Notice Type: Patient Choice Letter Notice Delivered To: Family Member Relationship to Patient: Spouse Lpn Private Duty Name: MICHELLE DOUGHERTY Delivery Method: HAND - Hand Delivered Teresa Days: Prior Verbal Notification: Recipient Understood Notice: Yes Recipient Signature: Yes Med Rec Note Co-signed by Attending: Coverage Notice Comment: NHUNG ARENAS Reviewer: [id number] Johnathan Garcia Notice Issued Date-Time: 08/25/2018 14:00 Notice Type: IM Discharge Notice Notice Delivered To: Family Member Relationship to Patient: Spouse Lpn Private Duty Name: MICHELLE DOUGHERTY Delivery Method: HAND - Hand Delivered Teresa Days: Prior Verbal Notification: Recipient Understood Notice: Yes Recipient Signature: Yes Med Rec Note Co-signed by Attending: Coverage Notice Comment: Last DP export: 08/26/18 10:29 Patient Name: MISAEL DOUGHERTY Page [id number] at 1205 All edits/amendments must be made on the electronic document DICTATION DATE: 08/26/18 1205 POULTRY PINNER: ELEANOR 08/26/18 1205 RPT#: [id number] DC DATE: STATUS: ADM IN [facility] [address] [place] [address] END OF REPORT
--- NOTE | ~2018-08-10 | MORECARE ---
CASE MANAGEMENT DISCHARGE SUMMARY PATIENT: MISAEL DOUGHERTY UNIT: [id number] ADM DATE: 08/10/18 AGE: 78 : 39 SEX: M ROOM/BED: D.2103 AUTHOR: JUNIE,DOC PHYSICIAN: REFERRING PHYSICIAN: AJCK PEREZ MD DATE OF SERVICE: 08/27/18 Discharge Plan Patient Name: MISAEL DOUGHERTY Facility[facility]:[place] : 1940 Planned Disposition: Inpatient Rehab Anticipated Discharge Date: 08/27/18 Discharge Date: Expected LOS: 17 Initial Reviewer: [id number] Initial Review Date: 08/18/2018 Generated: 08/27/18 9:03 am Comments DCP- Discharge Planning Updated by [id number]: Randall Regalado on 08/26/18 2:[address] Patient Name: MISAEL DOUGHERTY Encounter No: [id number] : 1940 Primary Insurance: MEDICARE A & B Anticipated DC Date: Planned Disposition: Inpatient Rehab External Planned Provider: [facility] INPATIENT REHAB DCP follow-up note: CM SPOKE TO PT AND SPOUSE IN ROOM REGARDING DISCHARGE PLAN. PT REPORTS HE WANTS REHAB SOON POSSIBLE HE IS STRESSED OUT AND WANTS OUT OF THIS ROOM, TO REHAB AT [place] IF POSSIBLE. PT'S SECOND CHOICE IS REHAB AT [facility], CHOICE PREVIOUSLY SIGNED. CM SPOKE TO TOO OF INPATIENT REHAB, DISCUSSED PT'S TREATMENT, TOO INFORMED CM THAT PT REMAINS GOOD CANDIDATE FOR INPATIENT REHAB, WAITING ON PULMONARY CONSULT AND RECOMMENDATIONS. PT AND SPOUSE NOTIFIED IN ROOM. SITA MOORE NOTIFIED. CM WAITING ADMISSION DETERMINATION FROM [facility] INPATIENT REHAB. Randall Regalado, CASE MANGEMENT Appended by Randall Regalado on 08/26/2018 15:39 DEPARTMENT COORDINATOR: CM SPOKE TO DR. ALBA WHO INFORMED CM THAT HE HAS CONSULTED AND IS IN AGREEMENT WITH DISCHARGE TO REHAB AND CAN GO TODAY. CM SPOKE TO TOO OF INPATIENT REHAB, THEY PLAN TO ACCEPT PT TOMORROW, 08-27-18 FOR REHAB. PT NOTIFIED, IN AGREEMENT WITH DISCHARGE TO INPATIENT REHAB. [facility] INPATIENT REHAB TO CONTACT MED 2 NURSE WITH ROOM NUMBER WHEN READY TO ACCEPT PT AND NURSE REPORT. RANDALL REGALADO, CASE MANAGEMENT DCP- Discharge Planning Updated by [id number]: Randall Regalado on 08/25/18 3:[address] Patient Name: MISAEL DOUGHERTY Encounter No: [id number] : 1940 Primary Insurance: MEDICARE A & B Anticipated DC Date: Planned Disposition: Inpatient Rehab External Planned Provider: [facility] INPATIENT REHAB DCP follow-up note: CM RECEIVED ORDER FOR INPATIENT REHAB PRESCREENING, PT IN BATHROOM SPOKE TO SPOUSE IN ROOM. SPOUSE REPORTS PT WILL NEED REHAB HE WENT HOME LAST TIME AND WAS BACK IN THE HOSPITAL IN TWO DAYS. SHE WOULD LIKE INPATIENT REHAB AT [place] WITH PLAN TO RETURN HOME WITH SPOUSE AND [facility]. IF DECLINED FOR REHAB, THEY WANT REHAB AT [facility]. CHOICE FOR [facility] SIGNED. IMPORTANT MESSAGE FROM MEDICARE PROVIDED AND EXPLAINED. CM WAITING ADMISSION DETERMINATION FROM [facility] INPATIENT REHAB. DEVENDRA Kiran MANGEMENT DCP- Discharge Planning Updated by [id number]: Laure Lujan on 08/18/18 6:[address] Patient Name: MISAEL DOUGHERTY Admission Status: ER Accout number: [id number] Admission Date: 08-10-2018 : 1940 Admission Diagnosis:NONTRAUMATIC SUBARACHNOID HEMORRHAGE, UNSPECIFIED Attending: JACK PEREZ Current LOS: 8 Anticipated DC Date: Planned Disposition: Home Primary Insurance: MEDICARE A & B Discharge Planning Comments: CM met with patient spouse Michelle at bedside. Patient is deaf & non verbal. Michelle states that she plans on him returning home. She states that patient had [facility] prior to admission. She denies any discharge needs at this time. Patient may require rehab before returning home.CM will continue to follow and assist as needed with discharge planning / needs. Blind Slat Stapling Machine Operator: Laure Lujan DCPIA - Discharge Planning Initial Assessment Updated by [id number]: Laure Lujan on 08/18/18 6:59 pm * Is the patient Alert and Oriented? No * How many steps to enter\exit or inside your home? * PCP Bowen * Pharmacy [facility] [address] * Preadmission Environment Home with Family * ADLs Partial Dependent * Other Equipment 02, nebulizer, walker, cane, wheelchair, shower chair * List name and contact numbers for known caregivers / representatives who currently or will assist patient after discharge: Michelle Dougherty [phone] * Verbal permission to speak to the caregivers and representatives has been obtained from the patient. N/A * Community resources currently utilized Home Health * Please name any agencies selected above. [facility] * Additional services required to return to the preadmission environment? No * Can the patient safely return to the preadmission environment? Yes * Has this patient been hospitalized within the prior 30 days at any hospital? Yes Coverage Notice Reviewer: [id number] Regalado Notice Issued Date-Time: 08/25/2018 14:00 Notice Type: Patient Choice Letter Notice Delivered To: Family Member Relationship to Patient: Spouse Physical Therapist Center Manager Name: MICHELLE DOUGHERTY Delivery Method: HAND - Hand Delivered Teresa Days: Prior Verbal Notification: Recipient Understood Notice: Yes Recipient Signature: Yes Med Rec Note Co-signed by Attending: Coverage Notice Comment: NHUNG ARENAS Reviewer: [id number] Regalado Notice Issued Date-Time: 08/25/2018 14:00 Notice Type: IM Discharge Notice Notice Delivered To: Family Member Relationship to Patient: Spouse Physical Therapist Center Manager Name: MICHELLE DOUGHERTY Delivery Method: HAND - Hand Delivered Teresa Days: Prior Verbal Notification: Recipient Understood Notice: Yes Recipient Signature: Yes Med Rec Note Co-signed by Attending: Coverage Notice Comment: Last DP export: 08/26/18 2:50 Patient Name: MISAEL DOUGHERTY Page [id number] at 0803 All edits/amendments must be made on the electronic document DICTATION DATE: 08/27/18801 BUSHEL GIRL: ELEANOR 08/27/18801 RPT#: [id number] DC DATE: STATUS: ADM IN [facility] [address] [place] [address] END OF REPORT
[~2018-08-10 15:45] MED LIST changes: +ATROVENT 0.02%2.5 ML UPD; +BETAPACE 120 M120 MG PO; +ZITHROMAX250 MG PO
[2018-08-10 16:24] LABS: BASOPHILS 0.2 % (0-2); EOSINOPHILS 2.1 % (0-7); HEMATOCRIT 31.6 % (42.0-54.0); HEMOGLOBIN 9.8 g/dL (13.5-17.5); IMMATURE GRANULOCYTES 0.2 % (0-5); LYMPHOCYTES 21.3 % (15-50); MCH 28.1 pg (26.0-34.0); MCV 90.5 fL (80.0-100.0); MONOCYTES 7.7 % (2-11); NEUTROPHILS 68.5 % (40-80); PLATELET COUNT 223 10x3/uL (130-400); RBC 3.49 10x6/uL (4.20-6.10); RDW 16.4 % (11.5-14.5); WBC 9.9 10x3/uL (4.8-10.8)
[2018-08-10 16:33] LABS: INR 1.25 (0.85-1.17); PROTIME 15.1 SECONDS (11.6-15.0)
[2018-08-10 16:34] LABS: APTT 29.4 SECONDS (22.8-39.4)
[2018-08-10 16:35] LABS: D-DIMER-QUANTITATIVE 2.48 ug/mLFEU (0.20-0.54)
[2018-08-10 16:46] LABS: ALBUMIN 1.8 g/dL (3.4-5.0); ALKALINE PHOSPHATASE 158 U/L (46-116); ALT (SGPT) 10 U/L (10-68); BILIRUBIN - TOTAL 0.32 mg/dL (0.2-1.3); CALC OSMOLALITY 306 mosm/kg (275-300); CALCIUM 7.2 mg/dL (8.5-10.1); CARBON DIOXIDE 26.2 mmol/L (21.0-32.0); CHLORIDE - SERUM 100 mmol/L (98-107); CREATININE - SERUM 8.8 mg/dL (0.6-1.3); GLUCOSE 141 mg/dL (74-106); PROTEIN - SERUM 7.2 g/dL (6.4-8.2); SODIUM 136 mmol/L (136-145); UREA NITROGEN 106 mg/dL (7-18); eGFR NON AFRICAN AMERICAN 6 mL/min (90-120)
[2018-08-10 16:58] LABS: AMYLASE - SERUM 51 U/L (25-115); CKMB 0.7 U/L (0.0-3.6); CREATINE KINASE 23 UL (21-232); LIPASE 746 U/L (73-393); TROPONIN-I < 0.017 ng/mL (0.000-0.060)
[2018-08-10 17:19] LABS: APPEARANCE HAZY (CLEAR); COLOR DK YELLOW (YELLOW)
[2018-08-10 17:20] LABS: BILIRUBIN 1+ (NEGATIVE); GLUCOSE 50 mg/dL (NEGATIVE); KETONE NEGATIVE (NEGATIVE); NITRITE NEGATIVE (NEGATIVE); PROTEIN 1+ mg/dL (NEGATIVE); UROBILINOGEN NORMAL (NORMAL)
[2018-08-10 17:21] LABS: BACTERIA MODERATE /hpf (NONE SEEN); EPITHELIAL CELLS 0-5 /hpf (0-5)
[2018-08-10 17:22] LABS: AMORPHOUS SEDIMENT >1+ /lpf (NONE SEEN)
[2018-08-11] VITALS (53 sets, daily range): BP systolic 78–110; BP diastolic 41–67; BMI 26.3
[2018-08-11 03:57] LABS: BASOPHILS 0.1 % (0-2); EOSINOPHILS 2.6 % (0-7); HEMATOCRIT 29.6 % (42.0-54.0); IMMATURE GRANULOCYTES 0.1 % (0-5); LYMPHOCYTES 18.1 % (15-50); MCH 27.9 pg (26.0-34.0); MCHC 30.4 g/dL (31.0-37.0); MCV 91.6 fL (80.0-100.0); MEAN PLATELET VOLUME 10.2 fL (7.4-10.4); MONOCYTES 9.7 % (2-11); NEUTROPHILS 69.4 % (40-80); PLATELET COUNT 210 10x3/uL (130-400); RBC 3.23 10x6/uL (4.20-6.10); RDW 16.5 % (11.5-14.5); WBC 8.4 10x3/uL (4.8-10.8)
[2018-08-11 04:05] LABS: ANION GAP 18.4 mmol/L (8-16); CREATININE - SERUM 7.9 mg/dL (0.6-1.3); POTASSIUM - SERUM 5.4 mmol/L (3.5-5.1)
[2018-08-11 14:37] LABS: BASOPHILS 0.2 % (0-2); EOSINOPHILS 1.9 % (0-7); HEMATOCRIT 31.9 % (42.0-54.0); HEMOGLOBIN 9.6 g/dL (13.5-17.5); IMMATURE GRANULOCYTES 0.2 % (0-5); LYMPHOCYTES 18.3 % (15-50); MCH 28.2 pg (26.0-34.0); MCHC 30.1 g/dL (31.0-37.0); MCV 93.5 fL (80.0-100.0); MEAN PLATELET VOLUME 10.7 fL (7.4-10.4); MONOCYTES 9.3 % (2-11); NEUTROPHILS 70.1 % (40-80); PLATELET COUNT 240 10x3/uL (130-400); RBC 3.41 10x6/uL (4.20-6.10); RDW 16.8 % (11.5-14.5)
[2018-08-11 14:39] LABS: WBC 12.1 10x3/uL (4.8-10.8)
[2018-08-11 14:46] LABS: APTT 29.4 SECONDS (22.8-39.4); INR 1.42 (0.85-1.17); PROTIME 16.7 SECONDS (11.6-15.0)
[2018-08-11 15:02] LABS: ALBUMIN 2.2 g/dL (3.4-5.0); ANION GAP 19.8 mmol/L (8-16); BILIRUBIN - TOTAL 0.38 mg/dL (0.2-1.3); CARBON DIOXIDE 21.8 mmol/L (21.0-32.0); CREATININE - SERUM 7.5 mg/dL (0.6-1.3); MAGNESIUM - SERUM 2.1 mg/dL (1.8-2.4); PHOSPHOROUS 8.2 mg/dL (2.5-4.9); POTASSIUM - SERUM 5.6 mmol/L (3.5-5.1)
[2018-08-11 15:11] LABS: CALCIUM 6.8 mg/dL (8.5-10.1)
[2018-08-12] VITALS (96 sets, daily range): BP systolic 70–116; BP diastolic 39–67
[2018-08-12 04:39] LABS: BASOPHILS 0.2 % (0-2); EOSINOPHILS 1.3 % (0-7); HEMOGLOBIN 9.7 g/dL (13.5-17.5); IMMATURE GRANULOCYTES 0.2 % (0-5); LYMPHOCYTES 20.2 % (15-50); MCHC 30.3 g/dL (31.0-37.0); MCV 92.2 fL (80.0-100.0); MEAN PLATELET VOLUME 10.4 fL (7.4-10.4); NEUTROPHILS 66.1 % (40-80); RBC 3.47 10x6/uL (4.20-6.10); RDW 16.5 % (11.5-14.5); WBC 11.4 10x3/uL (4.8-10.8)
[2018-08-12 04:42] LABS: PLATELET COUNT 309 10x3/uL (130-400)
[2018-08-12 05:21] LABS: ALBUMIN 1.9 g/dL (3.4-5.0); ANION GAP 14.3 mmol/L (8-16); BILIRUBIN - TOTAL 0.34 mg/dL (0.2-1.3); CALCIUM 6.9 mg/dL (8.5-10.1); CARBON DIOXIDE 28.6 mmol/L (21.0-32.0); CREATININE - SERUM 6.6 mg/dL (0.6-1.3); POTASSIUM - SERUM 4.9 mmol/L (3.5-5.1); PROTEIN - SERUM 7.1 g/dL (6.4-8.2); URIC ACID 12.8 mg/dL (2.6-7.2)
[2018-08-12 08:36] LABS: CREATININE - URINE 97.4 mg/dL (30-125)
[2018-08-13] VITALS (78 sets, daily range): BP systolic 82–113; BP diastolic 43–66
[2018-08-13 04:31] LABS: BASOPHILS 0.1 % (0-2); EOSINOPHILS 1.7 % (0-7); HEMATOCRIT 33.4 % (42.0-54.0); HEMOGLOBIN 9.9 g/dL (13.5-17.5); IMMATURE GRANULOCYTES 0.2 % (0-5); LYMPHOCYTES 15.8 % (15-50); MCH 27.7 pg (26.0-34.0); MCHC 29.6 g/dL (31.0-37.0); MCV 93.6 fL (80.0-100.0); MEAN PLATELET VOLUME 10.3 fL (7.4-10.4); MONOCYTES 9.2 % (2-11); RBC 3.57 10x6/uL (4.20-6.10); RDW 16.6 % (11.5-14.5); WBC 9.9 10x3/uL (4.8-10.8)
[2018-08-13 04:44] LABS: PLATELET COUNT 232 10x3/uL (130-400)
[2018-08-13 04:47] LABS: ANION GAP 15.3 mmol/L (8-16); CARBON DIOXIDE 28.9 mmol/L (21.0-32.0); CREATININE - SERUM 5.3 mg/dL (0.6-1.3); MAGNESIUM - SERUM 1.8 mg/dL (1.8-2.4); POTASSIUM - SERUM 5.2 mmol/L (3.5-5.1)
[2018-08-14] VITALS (24 sets, daily range): BP systolic 92–117; BP diastolic 51–77
[2018-08-14 04:53] LABS: BASOPHILS 0.1 % (0-2); EOSINOPHILS 1.2 % (0-7); HEMOGLOBIN 9.5 g/dL (13.5-17.5); IMMATURE GRANULOCYTES 0.4 % (0-5); LYMPHOCYTES 18.1 % (15-50); MCH 28.2 pg (26.0-34.0); MCHC 29.7 g/dL (31.0-37.0); MEAN PLATELET VOLUME 10.2 fL (7.4-10.4); MONOCYTES 10.3 % (2-11); NEUTROPHILS 69.9 % (40-80); PLATELET COUNT 186 10x3/uL (130-400); RBC 3.37 10x6/uL (4.20-6.10); RDW 16.6 % (11.5-14.5); WBC 7.8 10x3/uL (4.8-10.8)
[2018-08-14 05:31] LABS: ANION GAP 12.3 mmol/L (8-16); CALCIUM 7.2 mg/dL (8.5-10.1); CARBON DIOXIDE 29.1 mmol/L (21.0-32.0); CREATININE - SERUM 4.4 mg/dL (0.6-1.3); MAGNESIUM - SERUM 1.9 mg/dL (1.8-2.4); POTASSIUM - SERUM 5.4 mmol/L (3.5-5.1)
[2018-08-15] VITALS (23 sets, daily range): BP systolic 104–132; BP diastolic 57–95
[2018-08-15 03:41] LABS: BASOPHILS 0.2 % (0-2); EOSINOPHILS 1.5 % (0-7); HEMATOCRIT 31.4 % (42.0-54.0); HEMOGLOBIN 9.4 g/dL (13.5-17.5); IMMATURE GRANULOCYTES 0.2 % (0-5); LYMPHOCYTES 18.6 % (15-50); MCH 28.1 pg (26.0-34.0); MCHC 29.9 g/dL (31.0-37.0); MCV 93.7 fL (80.0-100.0); MEAN PLATELET VOLUME 10.1 fL (7.4-10.4); MONOCYTES 10.4 % (2-11); NEUTROPHILS 69.1 % (40-80); PLATELET COUNT 184 10x3/uL (130-400); RBC 3.35 10x6/uL (4.20-6.10); RDW 16.4 % (11.5-14.5); WBC 8.6 10x3/uL (4.8-10.8)
[2018-08-15 03:48] LABS: ANION GAP 12.4 mmol/L (8-16); CALCIUM 7.6 mg/dL (8.5-10.1); CARBON DIOXIDE 29.7 mmol/L (21.0-32.0); CREATININE - SERUM 3.4 mg/dL (0.6-1.3); POTASSIUM - SERUM 5.1 mmol/L (3.5-5.1)
[2018-08-16] VITALS (24 sets, daily range): BP systolic 105–145; BP diastolic 60–85
[2018-08-16 03:51] LABS: BASOPHILS 0.3 % (0-2); EOSINOPHILS 2.1 % (0-7); HEMATOCRIT 31.4 % (42.0-54.0); HEMOGLOBIN 9.3 g/dL (13.5-17.5); IMMATURE GRANULOCYTES 0.1 % (0-5); LYMPHOCYTES 19.6 % (15-50); MCH 27.9 pg (26.0-34.0); MCHC 29.6 g/dL (31.0-37.0); MCV 94.3 fL (80.0-100.0); MEAN PLATELET VOLUME 10.3 fL (7.4-10.4); MONOCYTES 9.9 % (2-11); PLATELET COUNT 150 10x3/uL (130-400); RBC 3.33 10x6/uL (4.20-6.10); RDW 16.4 % (11.5-14.5); WBC 7.1 10x3/uL (4.8-10.8)
[2018-08-16 03:52] LABS: ALBUMIN 1.9 g/dL (3.4-5.0); ANION GAP 11.5 mmol/L (8-16); BILIRUBIN - TOTAL 0.41 mg/dL (0.2-1.3); CALCIUM 8.2 mg/dL (8.5-10.1); CARBON DIOXIDE 31.5 mmol/L (21.0-32.0); PROTEIN - SERUM 7.2 g/dL (6.4-8.2)
[2018-08-16 04:02] LABS: CREATININE - SERUM 2.5 mg/dL (0.6-1.3)
[2018-08-17] VITALS (22 sets, daily range): BP systolic 102–149; BP diastolic 55–95
[2018-08-17 04:29] LABS: BASOPHILS 0.2 % (0-2); EOSINOPHILS 0.9 % (0-7); HEMATOCRIT 28.9 % (42.0-54.0); HEMOGLOBIN 8.5 g/dL (13.5-17.5); IMMATURE GRANULOCYTES 0.2 % (0-5); LYMPHOCYTES 23.8 % (15-50); MCH 27.9 pg (26.0-34.0); MCHC 29.4 g/dL (31.0-37.0); MCV 94.8 fL (80.0-100.0); MEAN PLATELET VOLUME 9.8 fL (7.4-10.4); MONOCYTES 9.1 % (2-11); NEUTROPHILS 65.8 % (40-80); PLATELET COUNT 135 10x3/uL (130-400); RBC 3.05 10x6/uL (4.20-6.10); RDW 16.5 % (11.5-14.5); WBC 6.4 10x3/uL (4.8-10.8)
[2018-08-17 04:57] LABS: ANION GAP 10.7 mmol/L (8-16); BILIRUBIN - TOTAL 0.42 mg/dL (0.2-1.3); CALCIUM 8.3 mg/dL (8.5-10.1); CARBON DIOXIDE 33.2 mmol/L (21.0-32.0); CREATININE - SERUM 1.9 mg/dL (0.6-1.3); POTASSIUM - SERUM 4.9 mmol/L (3.5-5.1); PROTEIN - SERUM 6.6 g/dL (6.4-8.2)
[2018-08-17 19:36] LABS: BASOPHILS 0.2 % (0-2); EOSINOPHILS 0.9 % (0-7); HEMATOCRIT 29.6 % (42.0-54.0); HEMOGLOBIN 8.5 g/dL (13.5-17.5); IMMATURE GRANULOCYTES 0.3 % (0-5); LYMPHOCYTES 17.5 % (15-50); MCH 27.9 pg (26.0-34.0); MCHC 28.7 g/dL (31.0-37.0); MEAN PLATELET VOLUME 9.5 fL (7.4-10.4); MONOCYTES 9.9 % (2-11); NEUTROPHILS 71.2 % (40-80); PLATELET COUNT 112 10x3/uL (130-400); RBC 3.05 10x6/uL (4.20-6.10); RDW 16.6 % (11.5-14.5); WBC 5.9 10x3/uL (4.8-10.8)
[2018-08-17 19:51] LABS: ALBUMIN 1.9 g/dL (3.4-5.0); ALKALINE PHOSPHATASE 157 U/L (46-116); ALT (SGPT) 15 U/L (10-68); CALC OSMOLALITY 318 mosm/kg (275-300); CALCIUM 8.2 mg/dL (8.5-10.1); CARBON DIOXIDE 34.6 mmol/L (21.0-32.0); CHLORIDE - SERUM 111 mmol/L (98-107); CREATININE - SERUM 1.8 mg/dL (0.6-1.3); GLUCOSE 143 mg/dL (74-106); POTASSIUM - SERUM 5.1 mmol/L (3.5-5.1); PROTEIN - SERUM 6.8 g/dL (6.4-8.2); SODIUM 150 mmol/L (136-145); UREA NITROGEN 67 mg/dL (7-18); eGFR NON AFRICAN AMERICAN 39 mL/min (90-120)
[2018-08-17 20:02] LABS: CKMB 0.6 U/L (0.0-3.6); MAGNESIUM - SERUM 1.6 mg/dL (1.8-2.4); TROPONIN-I 0.058 ng/mL (0.000-0.060)
[2018-08-18] VITALS (34 sets, daily range): BP systolic 74–152; BP diastolic 49–85; Ht 175.3 cm; Wt 77.3 kg
[2018-08-18 04:23] LABS: BASOPHILS 0.2 % (0-2); EOSINOPHILS 0.8 % (0-7); HEMATOCRIT 30.1 % (42.0-54.0); HEMOGLOBIN 8.8 g/dL (13.5-17.5); IMMATURE GRANULOCYTES 0.3 % (0-5); MCH 28.2 pg (26.0-34.0); MCHC 29.2 g/dL (31.0-37.0); MCV 96.5 fL (80.0-100.0); MEAN PLATELET VOLUME 10.1 fL (7.4-10.4); MONOCYTES 7.2 % (2-11); NEUTROPHILS 69.5 % (40-80); PLATELET COUNT 133 10x3/uL (130-400); RBC 3.12 10x6/uL (4.20-6.10); RDW 16.5 % (11.5-14.5); WBC 6.5 10x3/uL (4.8-10.8)
[2018-08-18 04:45] LABS: ANION GAP 11.8 mmol/L (8-16); CALCIUM 8.4 mg/dL (8.5-10.1); CARBON DIOXIDE 33.2 mmol/L (21.0-32.0); CREATININE - SERUM 1.8 mg/dL (0.6-1.3); MAGNESIUM - SERUM 1.9 mg/dL (1.8-2.4); PHOSPHOROUS 3.6 mg/dL (2.5-4.9)
[2018-08-18 13:43] LABS: INR 1.48 (0.85-1.17); PROTIME 17.3 SECONDS (11.6-15.0)
[2018-08-18 16:07] LABS: PROTEIN - BODY FLUID 2.8 G/DL
[2018-08-18 17:35] LABS: MACROPHAGES BF 29 %; MESOTHELIALS BF 10 %; NEUT - BF 3 %
[2018-08-19] VITALS (27 sets, daily range): BP systolic 86–110; BP diastolic 46–75
[2018-08-19 07:13] LABS: BASOPHILS 0 % (0-2); HEMATOCRIT 28.1 % (42.0-54.0); LYMPHOCYTES 24.1 % (15-50); MCH 27.3 pg (26.0-34.0); MCHC 28.5 g/dL (31.0-37.0); MCV 95.9 fL (80.0-100.0); MEAN PLATELET VOLUME 10.1 fL (7.4-10.4); MONOCYTES 6.8 % (2-11); NEUTROPHILS 68.1 % (40-80); RBC 2.93 10x6/uL (4.20-6.10); RDW 16.5 % (11.5-14.5)
[2018-08-19 07:18] LABS: PLATELET COUNT 101 10x3/uL (130-400)
[2018-08-19 07:42] LABS: ANION GAP 12.4 mmol/L (8-16); CALCIUM 7.9 mg/dL (8.5-10.1); CARBON DIOXIDE 31.9 mmol/L (21.0-32.0); CREATININE - SERUM 1.9 mg/dL (0.6-1.3); MAGNESIUM - SERUM 1.5 mg/dL (1.8-2.4); PHOSPHOROUS 2.8 mg/dL (2.5-4.9); POTASSIUM - SERUM 4.3 mmol/L (3.5-5.1)
[2018-08-19 22:20] LABS: PROTEIN - BODY FLUID 2.5 G/DL
[2018-08-19 22:53] LABS: EOS BF 1 %; MACROPHAGES BF 14 %; NEUT - BF 4 %
[2018-08-20] VITALS (22 sets, daily range): BP systolic 87–115; BP diastolic 48–83
[2018-08-20 04:37] LABS: ANION GAP 9.6 mmol/L (8-16); CALCIUM 7.8 mg/dL (8.5-10.1); CARBON DIOXIDE 33.3 mmol/L (21.0-32.0); CREATININE - SERUM 1.7 mg/dL (0.6-1.3); POTASSIUM - SERUM 3.9 mmol/L (3.5-5.1)
[2018-08-20 05:02] LABS: BASOPHILS 0 % (0-2); EOSINOPHILS 1.5 % (0-7); HEMATOCRIT 26.9 % (42.0-54.0); HEMOGLOBIN 7.8 g/dL (13.5-17.5); IMMATURE GRANULOCYTES 0.2 % (0-5); LYMPHOCYTES 19.2 % (15-50); MCH 27.6 pg (26.0-34.0); MCV 95.1 fL (80.0-100.0); MEAN PLATELET VOLUME 10.3 fL (7.4-10.4); NEUTROPHILS 72.1 % (40-80); PLATELET COUNT 100 10x3/uL (130-400); RBC 2.83 10x6/uL (4.20-6.10); RDW 16.4 % (11.5-14.5); WBC 5.4 10x3/uL (4.8-10.8)
[2018-08-20 15:27] LABS: FUNGUS STAIN Final report (())
[2018-08-21] VITALS (18 sets, daily range): BP systolic 97–123; BP diastolic 52–68
[2018-08-21 04:45] LABS: ANION GAP 6.3 mmol/L (8-16); CARBON DIOXIDE 34.6 mmol/L (21.0-32.0); CREATININE - SERUM 1.6 mg/dL (0.6-1.3); POTASSIUM - SERUM 3.9 mmol/L (3.5-5.1)
[2018-08-21 05:16] LABS: BASOPHILS 0 % (0-2); EOSINOPHILS 0.9 % (0-7); HEMATOCRIT 30.1 % (42.0-54.0); HEMOGLOBIN 8.9 g/dL (13.5-17.5); IMMATURE GRANULOCYTES 0.2 % (0-5); LYMPHOCYTES 17.7 % (15-50); MCHC 29.6 g/dL (31.0-37.0); MCV 94.7 fL (80.0-100.0); MEAN PLATELET VOLUME 10.6 fL (7.4-10.4); MONOCYTES 3.9 % (2-11); NEUTROPHILS 77.3 % (40-80); PLATELET COUNT 96 10x3/uL (130-400); RBC 3.18 10x6/uL (4.20-6.10); RDW 16.4 % (11.5-14.5); WBC 6.7 10x3/uL (4.8-10.8)
[2018-08-21 06:32] LABS: PLATELET ESTIMATE DECREASED
[2018-08-21 20:08] LABS: ACID FAST SMEAR Negative (()); AFB SPECIMEN PROCESSING Concentration (())
[2018-08-22 01:15] VITALS: BP 100/55
[2018-08-22 05:13] VITALS: BP 98/49
[2018-08-22 09:33] VITALS: BP 101/48
[2018-08-22 13:18] LABS: FUNGUS STAIN Final report (())
[2018-08-22 13:48] LABS: APPEARANCE CLOUDY (CLEAR); BACTERIA MODERATE /hpf (NONE SEEN); BILIRUBIN NEGATIVE (NEGATIVE); COLOR YELLOW (YELLOW); EPITHELIAL CELLS 0-5 /hpf (0-5); GLUCOSE NEGATIVE (NEGATIVE); KETONE NEGATIVE (NEGATIVE); NITRITE NEGATIVE (NEGATIVE); PROTEIN 1+ mg/dL (NEGATIVE); SPECIFIC GRAVITY 1.015 (1.005-1.020); UROBILINOGEN NORMAL (NORMAL); YEAST >1+ /hpf (NONE SEEN)
[2018-08-22 13:49] LABS: MUCUS <1+ /lpf (NONE SEEN); RED CELLS - URINE 25-50 /hpf (0-5)
[2018-08-22 19:55] VITALS: BP 100/64
[2018-08-22 23:50] VITALS: BP 104/52
[2018-08-23 03:50] VITALS: BP 118/59
[2018-08-23 08:06] VITALS: BP 112/66
[2018-08-23 08:33] LABS: CALC OSMOLALITY 278 mosm/kg (275-300); CALCIUM 8.8 mg/dL (8.5-10.1); CARBON DIOXIDE 29.4 mmol/L (21.0-32.0); CHLORIDE - SERUM 100 mmol/L (98-107); CREATININE - SERUM 0.8 mg/dL (0.6-1.3); POTASSIUM - SERUM 4.1 mmol/L (3.5-5.1); SODIUM 138 mmol/L (136-145); UREA NITROGEN 20 mg/dL (7-18); eGFR NON AFRICAN AMERICAN > 90 mL/min (90-120)
[2018-08-23 08:35] LABS: GLUCOSE 101 mg/dL (74-106)
[2018-08-23 11:04] VITALS: BP 103/60
[2018-08-23 15:50] VITALS: BP 131/70
[2018-08-23 19:45] VITALS: BP 96/56
[2018-08-23 23:55] VITALS: BP 102/53
[2018-08-24 03:45] VITALS: BP 112/55
[2018-08-24 08:15] VITALS: BP 118/62
[2018-08-24 11:34] VITALS: BP 96/55
[2018-08-24 16:08] VITALS: BP 99/54
[2018-08-24 19:55] VITALS: BP 95/50
[2018-08-24 23:55] VITALS: BP 98/47
[2018-08-25 04:00] VITALS: BP 128/57
[2018-08-25 04:45] LABS: BASOPHILS 0.1 % (0-2); EOSINOPHILS 0.8 % (0-7); HEMATOCRIT 30.8 % (42.0-54.0); HEMOGLOBIN 9.5 g/dL (13.5-17.5); IMMATURE GRANULOCYTES 0.1 % (0-5); LYMPHOCYTES 12.1 % (15-50); MCH 28.5 pg (26.0-34.0); MCHC 30.8 g/dL (31.0-37.0); MCV 92.5 fL (80.0-100.0); MONOCYTES 6.5 % (2-11); NEUTROPHILS 80.4 % (40-80); RBC 3.33 10x6/uL (4.20-6.10); WBC 7.8 10x3/uL (4.8-10.8)
[2018-08-25 04:50] LABS: PLATELET COUNT 144 10x3/uL (130-400)
[2018-08-25 04:59] LABS: ANION GAP 10.3 mmol/L (8-16); CALCIUM 7.7 mg/dL (8.5-10.1); POTASSIUM - SERUM 4.3 mmol/L (3.5-5.1)
[2018-08-25 05:02] LABS: CREATININE - SERUM 1.7 mg/dL (0.6-1.3)
[2018-08-25 08:26] VITALS: BP 107/56
[2018-08-25 12:36] VITALS: BP 109/61
[2018-08-25 16:12] LABS: FUNGUS MYCOLOGY CULTURE Preliminary report (())
[2018-08-25 16:43] VITALS: BP 102/54
[2018-08-25 20:57] VITALS: BP 123/54
[2018-08-26 00:29] VITALS: BP 110/52
[2018-08-26 04:57] VITALS: BP 102/54
[2018-08-26 05:26] LABS: BASOPHILS 0 % (0-2); EOSINOPHILS 0.9 % (0-7); HEMATOCRIT 28.9 % (42.0-54.0); HEMOGLOBIN 8.7 g/dL (13.5-17.5); IMMATURE GRANULOCYTES 0.2 % (0-5); LYMPHOCYTES 13.3 % (15-50); MCH 27.8 pg (26.0-34.0); MCHC 30.1 g/dL (31.0-37.0); MCV 92.3 fL (80.0-100.0); MEAN PLATELET VOLUME 10.8 fL (7.4-10.4); MONOCYTES 8.4 % (2-11); NEUTROPHILS 77.2 % (40-80); PLATELET COUNT 157 10x3/uL (130-400); RBC 3.13 10x6/uL (4.20-6.10); RDW 16.1 % (11.5-14.5); WBC 6.4 10x3/uL (4.8-10.8)
[2018-08-26 05:43] LABS: ANION GAP 8.2 mmol/L (8-16); CALCIUM 7.4 mg/dL (8.5-10.1); CARBON DIOXIDE 33.8 mmol/L (21.0-32.0); CREATININE - SERUM 1.6 mg/dL (0.6-1.3)
[2018-08-26 07:56] VITALS: BP 109/49
[2018-08-26 12:42] VITALS: BP 112/58
[2018-08-26 16:25] VITALS: BP 103/67
[2018-08-26 21:15] VITALS: BP 98/50
[2018-08-27] VITALS: BP 106/44
[2018-08-27 05:08] LABS: BASOPHILS 0 % (0-2); EOSINOPHILS 0.6 % (0-7); HEMATOCRIT 25.8 % (42.0-54.0); IMMATURE GRANULOCYTES 0.2 % (0-5); LYMPHOCYTES 13.7 % (15-50); MCH 28.4 pg (26.0-34.0); MCV 91.5 fL (80.0-100.0); MEAN PLATELET VOLUME 10.1 fL (7.4-10.4); MONOCYTES 7.7 % (2-11); NEUTROPHILS 77.8 % (40-80); PLATELET COUNT 150 10x3/uL (130-400); RBC 2.82 10x6/uL (4.20-6.10); RDW 16.1 % (11.5-14.5); WBC 5.4 10x3/uL (4.8-10.8)
[2018-08-27 05:17] VITALS: BP 100/46
[2018-08-27 05:24] LABS: ANION GAP 11.1 mmol/L (8-16); CALCIUM 7.4 mg/dL (8.5-10.1); CARBON DIOXIDE 31.8 mmol/L (21.0-32.0); CREATININE - SERUM 1.6 mg/dL (0.6-1.3); POTASSIUM - SERUM 3.9 mmol/L (3.5-5.1)
[2018-08-27 08:11] VITALS: BP 111/48
[2018-08-27 11:13] VITALS: BP 113/47
[2018-08-27] MEDS ORDERED: MUCINEX600 MG PO (14:16)
[2018-08-27] MEDS ORDERED: PULMICORT0.5 MG/21 UPD (14:16)
[2018-08-27] MEDS ORDERED: LASIX40 MG PO (14:18)
[2018-08-27 15:28] LABS: FUNGUS MYCOLOGY CULTURE Preliminary report (())
[2018-08-27 15:37] VITALS: BP 120/60
== END 2018-08-27 16:13 | DRG 64 ==
LOC: D.ER 15:45 → D.ICU 17:43 → D.EDHOLD 17:43 → D.M2 17:43 → D.ICU 18:16 → D.M2 08-22 01:02
PROVIDERS: Family Medicine; General Practice; Internal Medicine Nephrology; Specialist
PROC: 0W993ZZ Drainage of Right Pleural Cavity, Percutaneous Approach (ICD-10-PCS; 2018-08-18)
PROC: 0DH63UZ Insertion of Feeding Device into Stomach, Percutaneous Approach (ICD-10-PCS; 2018-08-18)
PROC: 0DJ08ZZ Inspection of Upper Intestinal Tract, Via Natural or Artificial Opening Endoscopic (ICD-10-PCS; 2018-08-18)
PROC: 0W9B3ZZ Drainage of Left Pleural Cavity, Percutaneous Approach (ICD-10-PCS; principal; 2018-08-19 15:00)
DX: I60.9 Nontraumatic subarachnoid hemorrhage, unspecified (principal); N17.0 Acute kidney failure with tubular necrosis; G93.41 Metabolic encephalopathy; I13.0 Hypertensive heart and chronic kidney disease with heart failure and stage 1 through stage 4 chronic kidney disease, or unspecified chronic kidney disease; N18.4 Chronic kidney disease, stage 4 (severe); I50.22 Chronic systolic (congestive) heart failure; K81.2 Acute cholecystitis with chronic cholecystitis; B37.49 Other urogenital candidiasis; E11.22 Type 2 diabetes mellitus with diabetic chronic kidney disease; H91.90 Unspecified hearing loss, unspecified ear; D63.1 Anemia in chronic kidney disease; I95.9 Hypotension, unspecified; I25.10 Atherosclerotic heart disease of native coronary artery without angina pectoris; R40.2353 Coma scale, best motor response, localizes pain, at hospital admission; R40.2143 Coma scale, eyes open, spontaneous, at hospital admission; R40.2243 Coma scale, best verbal response, confused conversation, at hospital admission

== ENCOUNTER 2018-08-27 16:07 | Inpatient (IN) | payer MEDICARE, OTHER ==
[~2018-08-27] VITALS: Ht 175.3 cm; Wt 78.9 kg
--- NOTE | ~2018-08-27 | EC ---
PATIENT:MISAEL DOUGHERTY DATE OF SERVICE: 08/27/18 SEX: M MEDICAL RECORD: [id number] DATE OF : [birth year] LOCATION:[place] [address] AGE OF PATIENT: 78 ADMISSION DATE: 08/27/18 REFERRING PHYSICIAN: INTERPRETING PHYSICIAN: ROXANA RINALDI MD ECHOCARDIOGRAM REPORT ECHO CHARGES 5 ECHO LIMITED Date: 08/31/18 CLINICAL DIAGNOSIS: ATRIAL FLUTTER ECHOCARDIOGRAPHIC MEASUREMENTS (adult normal given) AC root (d.<3.7cm) cm LV Septum d (<1.2 cm> cm Valve Excursion cm LV Septum (systole) cm Left Atria (s.<4.0cm> 3.7 cm LVPW d(<1.2cm) cm RV (d.<2.3cm) cm LVPW (sytole) cm LV diastole(<5.6CM) cm MV E-F(>70mm/sec) cm LV systole cm LVOT Diameter cm MV exc.(>10mm) cm Est.ejection fraction (50-75%) % DOPPLER: LVIT cm/sec A cm/sec E cm/sec LA cm/sec RVSP 17 mmHg LVOT cm/sec AOP1/2T m/s Asc. Ao cm/sec RVOT cm/sec RA cm/sec PA cm/sec AV Gradient Peak mmHg AV Mean mmHg AV Area cm MV Gradient Peak mmHg MV Mean mmHg MV Area cm COMMENTS: Storage Brine Worker: Светлана LUDWIG Compensation Consulting Manager: 3 Dr. Greco TAPE# PACS Pericardial Effusion N DATE OF SERVICE: Study includes 2D and M-Mode. LVH is present. LV internal dimensions grossly appears normal. Difficult to fully assess focal wall motion from underlying atrial fibrillation and variable R-R interval; however, LV function appears to be normal. Aortic valve is tricuspid. Left atrium measures 3.7 cm. Mitral valve appears normal. Trace MR. Right sided chambers grossly normal. Trace TR. TRANSINT:[id number] Voice Confirmation ID: [id number] DOCUMENT ID: [id number] ECHOCARDIOGRAM REPORT [id number] MISAEL DOUGHERTY ROXANA RINALDI MD at 1546 CC: [id number] DICTATION DATE: 09/01/18 1011 ALLOCATIONS CLERK: 09/01/18 1048 ADM IN [facility] [address] [place] [address]
--- NOTE | ~2018-08-27 | RHP ---
PATIENT: MISAEL DOUGHERTY MEDICAL RECORD: [id number] ACCOUNT: [id number] LOCATION:[facility] : [birth year] ADMISSION DATE: 08/27/18 REHABILITATION HISTORY AND PHYSICAL EXAMINATION POST ADMISSION PHYSICIAN EXAMINATION DATE OF ADMISSION: 08/27/2018 ADMITTING DIAGNOSES: Subarachnoid hemorrhage along with superior right frontal lobe involvement. HISTORY OF PRESENT ILLNESS: The patient is a 78-year-old gentleman who is admitted secondary to a subarachnoid hemorrhage after a fall. He arrived via EMS with generalized weakness. He was found to have a very low blood pressure in the 70s and stayed in the 70s despite fluid bolus. He is very hard of hearing, but can read. He was having some shortness of breath. reported he fell at home. His EKG showed AFib. CT showed a subarachnoid hemorrhage. He had acute renal failure with creatinine of 8.8. His baseline is 1.2. He was recently discharged for community-acquired pneumonia and diuresed for CHF. His BP meds were adjusted. He was started on sotalol 120 mg b.i.d., Lopressor and lisinopril were discontinued. He had been discharged in stable condition. Over the previous 2-3 days though he had been following, he is admitted to ICU with pulmonary, cardiac, neurosurgery and nephrology consultation. He had hypotension. Dr. Velasquez felt there was no mass effect and recommend holding his Plavix and did supportive care for his subarachnoid hemorrhage. He had a thoracentesis, which yielded 1300 cc of serosanguineous fluid. He passed a swallow eval, but refused to eat. Surgery was consulted. PEG tube was placed. He is currently getting Glucerna 60 cc hourly from 6:00 p.m. to 6:00 a.m. He was moved out of ICU on 08/22/2018. He did grow out a species of Marely and also had a urinary tract infection. He was started on Diflucan. He has also been on IV Zosyn. He is on continuous O2 at 2-4 liters. He has got dyspnea on exertion, diminished breath sounds bilaterally. He has got a nonproductive cough. He is alert and awake, but he is hard to communicate with secondary to his hardness of hearing and he has got a Badillo catheter secondary to urinary retention. He has poor balance. He tires easily. He remains a high fall risk. Hopefully, we can get him back home after a stay here in acute rehabilitation. COMORBIDITIES: Include acute mental status changes, hypotension, acute kidney injury, CAD, AFib, anemia, hypoxia, chronic congestive heart failure, diabetes, electrolyte abnormalities, syncope, collapse, falls, COPD, status post PEG placement, UTI. PAST MEDICAL HISTORY: Significant for congestive heart failure, chronic kidney disease, anemia, pneumonia, hypertension, bilateral pleural effusion, psoriasis, arthritis, hard of hearing, coronary artery disease and COPD. PAST SURGICAL HISTORY: Includes herniorrhaphy. He has had right shoulder surgery, cataract surgery and a kidney stone removal in the past. ALLERGIES: HYDROCODONE AND RED DYE. CURRENT MEDICATIONS: Include Atrovent updrafts. He is on Protonix 40 mg daily, aspirin chewable 81 mg daily. He is on Tylenol PM at bedtime p.r.n. He is on Mucinex 1200 mg b.i.d. He is on furosemide 40 mg b.i.d. and Pulmicort 0.5 mg b.i.d. HISTORY AND PHYSICAL [id number] MISAEL DOUGHERTY HABITS: No current alcohol or tobacco use. Does have a history of tobacco use. FAMILY HISTORY: Noncontributory. SOCIAL HISTORY: The patient hopes to return back home and get back to his prior level of functioning. REVIEW OF SYSTEMS: GENERAL: He does complain of weakness and fatigue. HEENT: Denies cold, cough, or congestion. CARDIOVASCULAR: Denies chest pain. PHYSICAL EXAMINATION: VITAL SIGNS: Stable, afebrile. GENERAL: An elderly gentleman in no acute distress, alert upon exam. HEENT: Normocephalic and atraumatic, mucosa moist. NECK: Supple, with no lymphadenopathy. Does have some bruising to his forehead. LUNGS: Clear at this time with no wheeze, rhonchi or rales. HEART: Irregular rate and rhythm. No murmurs, rubs or gallops. ABDOMEN: Benign. EXTREMITIES: No clubbing, cyanosis or edema. NEUROLOGIC: He does have noted proximal muscle weakness. LABORATORY DATA: His white count is 7.3, H&H of 9 and 29, and platelet count was noted to be 238. Sodium 137, potassium 3.9, BUN and creatinine of 34 and 1.6, and blood sugar is noted to be 186. His admit UA did show 2+ blood, 1+ leukocyte esterase. He did have a few bacteria. ASSESSMENT: This is a 78-year-old gentleman admitted to the rehab with a working diagnosis of a subarachnoid hemorrhage with frontal lobe involvement. The patient has potential to make improvement. We instituted the following multidisciplinary therapies including, but not limited to physical, occupational, respiratory, speech, nutritional services, prosthetics and orthotics. Given his complex medical condition and risk for more complications, rehabilitation services cannot be provided at a low level of care such as alf facility. PLAN: 1. Admit to [facility] for intensive inpatient therapy to include the following disciplines: A. Physical therapy to improve gait, all transfer skills and bed mobility to a modified independent level. B. Occupational therapy to a modified independent level. C. Case management to assist with discharge planning and placement options. D. Nutrition to assist with nutritional needs. E. Rehabilitation nursing to assist in monitoring the patient's underlying medical conditions and to assist with any type of bowel or bladder management. 2. The patient's current medication and medical care will be continued. 3. The patient will be placed on standard fall precautions. 4. I am going to go ahead and treat his urinary tract infection at this time. 5. We will follow up in the a.m. We will continue with home medications where appropriate. I will watch his BUN and creatinine throughout his stay, is back down to normal for him and once again we will follow up in the a.m. HISTORY AND PHYSICAL [id number] MISAEL DOUGHERTY Clem TRANSINT:[id number] Voice Confirmation ID: [id number] DOCUMENT ID: [id number] TOÑA notes whether there has been none or any medical/functional change since admission: - No change since the PAS TOÑA attests patient continues to be appropriate for IRF: - Remains appropriate for the ARU ESTELA ELLIS MD at 1204 CC: [id number] DICTATION DATE: 08/28/18 09 INSIDE SALES SUPERVISOR: 08/28/18 1205 DIS IN 09/06/18 [facility] [address] [place] [address]
[~2018-08-27 16:07] MED LIST changes: +LASIX40 MG PO; +MUCINEX600 MG PO; +PULMICORT0.5 MG/21 UPD
[2018-08-28 00:36] LABS: APPEARANCE HAZY (CLEAR); BILIRUBIN NEGATIVE (NEGATIVE); COLOR YELLOW (YELLOW); GLUCOSE NEGATIVE (NEGATIVE); KETONE NEGATIVE (NEGATIVE); NITRITE NEGATIVE (NEGATIVE); PROTEIN NEGATIVE (NEGATIVE); SPECIFIC GRAVITY 1.005 (1.005-1.020); UROBILINOGEN NORMAL (NORMAL)
[2018-08-28 00:37] LABS: BACTERIA FEW /hpf (NONE SEEN); EPITHELIAL CELLS 0-5 /hpf (0-5); WHITE CELLS - URINE 0-5 /hpf (0-5); YEAST >1+ /hpf (NONE SEEN)
[2018-08-28 02:19] VITALS: BP 100/41; BMI 25.8
[2018-08-28 06:58] LABS: BASOPHILS 0.1 % (0-2); EOSINOPHILS 1.8 % (0-7); HEMATOCRIT 29.3 % (42.0-54.0); IMMATURE GRANULOCYTES 0.1 % (0-5); LYMPHOCYTES 20.2 % (15-50); MCHC 30.7 g/dL (31.0-37.0); MEAN PLATELET VOLUME 10.3 fL (7.4-10.4); MONOCYTES 9.6 % (2-11); NEUTROPHILS 68.2 % (40-80); RBC 3.22 10x6/uL (4.20-6.10); RDW 16.2 % (11.5-14.5)
[2018-08-28 07:01] LABS: PLATELET COUNT 238 10x3/uL (130-400); WBC 7.3 10x3/uL (4.8-10.8)
[2018-08-28 07:05] LABS: ANION GAP 9.8 mmol/L (8-16); CALCIUM 8.7 mg/dL (8.5-10.1); CARBON DIOXIDE 33.1 mmol/L (21.0-32.0); CREATININE - SERUM 1.6 mg/dL (0.6-1.3); POTASSIUM - SERUM 3.9 mmol/L (3.5-5.1)
[2018-08-28 08:00] VITALS: BP 110/55
[2018-08-28 13:13] VITALS: Ht 175.3 cm; Wt 78.9 kg
[2018-08-29 02:29] VITALS: BP 110/54
[2018-08-29 08:00] VITALS: BP 99/57
[2018-08-29 19:00] VITALS: BP 106/62
[2018-08-30 08:00] VITALS: BP 137/60
[2018-08-30 19:00] VITALS: BP 113/59
[2018-08-31 12:15] VITALS: BP 107/63
[2018-08-31 19:00] VITALS: BP 100/53
[2018-09-01 07:11] LABS: BASOPHILS 0 % (0-2); EOSINOPHILS 1.2 % (0-7); HEMATOCRIT 27.5 % (42.0-54.0); HEMOGLOBIN 8.4 g/dL (13.5-17.5); IMMATURE GRANULOCYTES 0.2 % (0-5); LYMPHOCYTES 23.5 % (15-50); MCH 28.2 pg (26.0-34.0); MCHC 30.5 g/dL (31.0-37.0); MCV 92.3 fL (80.0-100.0); MEAN PLATELET VOLUME 9.9 fL (7.4-10.4); MONOCYTES 7.7 % (2-11); NEUTROPHILS 67.4 % (40-80); PLATELET COUNT 279 10x3/uL (130-400); RBC 2.98 10x6/uL (4.20-6.10); RDW 16.8 % (11.5-14.5)
[2018-09-01 07:23] LABS: ANION GAP 9.4 mmol/L (8-16); CALCIUM 7.9 mg/dL (8.5-10.1); CARBON DIOXIDE 34.2 mmol/L (21.0-32.0); CREATININE - SERUM 1.8 mg/dL (0.6-1.3); POTASSIUM - SERUM 3.6 mmol/L (3.5-5.1)
[2018-09-01 08:13] VITALS: BP 103/55
[2018-09-01 19:00] VITALS: BP 113/60
[2018-09-02 08:35] VITALS: BP 113/51
[2018-09-02 19:00] VITALS: BP 106/52
[2018-09-03 07:15] LABS: CALCIUM 7.9 mg/dL (8.5-10.1); CARBON DIOXIDE 30.9 mmol/L (21.0-32.0); CREATININE - SERUM 1.6 mg/dL (0.6-1.3); DIGOXIN 1.08 ng/mL (0.90-2.00); POTASSIUM - SERUM 3.9 mmol/L (3.5-5.1)
[2018-09-03 07:16] LABS: BASOPHILS 0 % (0-2); EOSINOPHILS 0.9 % (0-7); IMMATURE GRANULOCYTES 0.2 % (0-5); LYMPHOCYTES 16.4 % (15-50); MCHC 30.8 g/dL (31.0-37.0); MCV 90.9 fL (80.0-100.0); MEAN PLATELET VOLUME 9.6 fL (7.4-10.4); NEUTROPHILS 73.5 % (40-80); PLATELET COUNT 261 10x3/uL (130-400); RBC 2.86 10x6/uL (4.20-6.10); RDW 16.6 % (11.5-14.5); WBC 6.5 10x3/uL (4.8-10.8)
[2018-09-03 08:00] VITALS: BP 107/56
[2018-09-03 19:00] VITALS: BP 101/49
[2018-09-04 08:00] VITALS: BP 99/50
[2018-09-04 19:00] VITALS: BP 104/53
[2018-09-05 07:09] LABS: BASOPHILS 0.2 % (0-2); EOSINOPHILS 0.6 % (0-7); HEMATOCRIT 27.2 % (42.0-54.0); HEMOGLOBIN 8.5 g/dL (13.5-17.5); IMMATURE GRANULOCYTES 0.3 % (0-5); LYMPHOCYTES 21.8 % (15-50); MCH 28.5 pg (26.0-34.0); MCHC 31.3 g/dL (31.0-37.0); MCV 91.3 fL (80.0-100.0); MEAN PLATELET VOLUME 9.4 fL (7.4-10.4); MONOCYTES 11.7 % (2-11); NEUTROPHILS 65.4 % (40-80); PLATELET COUNT 262 10x3/uL (130-400); RBC 2.98 10x6/uL (4.20-6.10); RDW 16.9 % (11.5-14.5); WBC 6.4 10x3/uL (4.8-10.8)
[2018-09-05 07:26] LABS: ANION GAP 11.7 mmol/L (8-16); CALCIUM 8.3 mg/dL (8.5-10.1); CARBON DIOXIDE 31.4 mmol/L (21.0-32.0); CREATININE - SERUM 1.8 mg/dL (0.6-1.3); DIGOXIN 1.77 ng/mL (0.90-2.00); POTASSIUM - SERUM 4.1 mmol/L (3.5-5.1)
[2018-09-05 08:00] VITALS: BP 106/54; BP 93/66
[2018-09-05 19:00] VITALS: BP 88/38
[2018-09-06] MEDS ORDERED: CARDIZEM30 MG PO (12:03)
[2018-09-06] MEDS ORDERED: LANOXIN125 MCG PO (12:03)
== END 2018-09-06 14:21 | disposition home health service (06) | DRG 64 ==
LOC: D.REHAB 16:07
PROVIDERS: Emergency Medicine
DX: I60.8 Other nontraumatic subarachnoid hemorrhage (principal); J18.9 Pneumonia, unspecified organism; N17.9 Acute kidney failure, unspecified; I13.0 Hypertensive heart and chronic kidney disease with heart failure and stage 1 through stage 4 chronic kidney disease, or unspecified chronic kidney disease; N39.0 Urinary tract infection, site not specified; E87.0 Hyperosmolality and hypernatremia; E87.2 Acidosis; I50.22 Chronic systolic (congestive) heart failure; J96.11 Chronic respiratory failure with hypoxia; J98.11 Atelectasis; J44.1 Chronic obstructive pulmonary disease with (acute) exacerbation; I48.91 Unspecified atrial fibrillation; I25.10 Atherosclerotic heart disease of native coronary artery without angina pectoris; E11.22 Type 2 diabetes mellitus with diabetic chronic kidney disease; N18.9 Chronic kidney disease, unspecified; R55 Syncope and collapse; J44.9 Chronic obstructive pulmonary disease, unspecified; E87.8 Other disorders of electrolyte and fluid balance, not elsewhere classified; R41.82 Altered mental status, unspecified; I95.9 Hypotension, unspecified; R53.1 Weakness; R53.83 Other fatigue; D64.9 Anemia, unspecified; E87.5 Hyperkalemia; E11.9 Type 2 diabetes mellitus without complications

== ENCOUNTER 2018-09-10 05:59 | Inpatient (IN) | payer MEDICARE, OTHER ==
[~2018-09-10] VITALS: Ht 175.3 cm; Wt 61.2 kg
[~2018-09-10 05:59] MED LIST changes: +CARDIZEM30 MG PO; +LANOXIN125 MCG PO
--- NOTE | 2018-09-10 06:14 | NUR ---
POC GLUCOSE 288
[2018-09-10 06:35] LABS: BASOPHILS 0.1 % (0-2); EOSINOPHILS 0.3 % (0-7); HEMATOCRIT 28.2 % (42.0-54.0); HEMOGLOBIN 8.9 g/dL (13.5-17.5); IMMATURE GRANULOCYTES 0.3 % (0-5); MCH 28.8 pg (26.0-34.0); MCHC 31.6 g/dL (31.0-37.0); MCV 91.3 fL (80.0-100.0); MEAN PLATELET VOLUME 9.2 fL (7.4-10.4); MONOCYTES 5.4 % (2-11); NEUTROPHILS 72.9 % (40-80); PLATELET COUNT 280 10x3/uL (130-400); RBC 3.09 10x6/uL (4.20-6.10); RDW 16.8 % (11.5-14.5); WBC 11.9 10x3/uL (4.8-10.8)
[2018-09-10 07:20] LABS: ALBUMIN 1.7 g/dL (3.4-5.0); ALKALINE PHOSPHATASE 187 U/L (46-116); ALT (SGPT) 11 U/L (10-68); BILIRUBIN - TOTAL 0.38 mg/dL (0.2-1.3); CALC OSMOLALITY 294 mosm/kg (275-300); CARBON DIOXIDE 27.9 mmol/L (21.0-32.0); CHLORIDE - SERUM 97 mmol/L (98-107); CREATININE - SERUM 4.7 mg/dL (0.6-1.3); GLUCOSE 89 mg/dL (74-106); POTASSIUM - SERUM 5.2 mmol/L (3.5-5.1); PROTEIN - SERUM 7.5 g/dL (6.4-8.2); SODIUM 135 mmol/L (136-145); UREA NITROGEN 86 mg/dL (7-18); eGFR NON AFRICAN AMERICAN 13 mL/min (90-120)
[2018-09-10 07:22] VITALS: BP 98/048
[2018-09-10 07:23] LABS: AMORPHOUS SEDIMENT <1+ /lpf (NONE SEEN); APPEARANCE SL CLDY (CLEAR); BACTERIA MODERATE /hpf (NONE SEEN); BILIRUBIN NEGATIVE (NEGATIVE); COLOR YELLOW (YELLOW); EPITHELIAL CELLS 0-5 /hpf (0-5); GLUCOSE 250 mg/dL (NEGATIVE); KETONE NEGATIVE (NEGATIVE); MUCUS <1+ /lpf (NONE SEEN); NITRITE NEGATIVE (NEGATIVE); PROTEIN 1+ mg/dL (NEGATIVE); SPECIFIC GRAVITY 1.015 (1.005-1.020); UDS - AMPHET NEGATIVE QUAL (NEGATIVE); UDS - BARB NEGATIVE QUAL (NEGATIVE); UDS - BENZO NEGATIVE QUAL (NEGATIVE); UDS - COCAINE NEGATIVE QUAL (NEGATIVE); UDS - OPIATE NEGATIVE QUAL (NEGATIVE); UDS - PCP NEGATIVE QUAL (NEGATIVE); UDS - THC NEGATIVE QUAL (NEGATIVE); UROBILINOGEN NORMAL (NORMAL); WHITE CELLS - URINE OCC /hpf (0-5); YEAST <1+ /hpf (NONE SEEN)
[2018-09-10 07:32] LABS: AMYLASE - SERUM 30 U/L (25-115); CKMB 1.5 U/L (0.0-3.6); CREATINE KINASE 65 UL (21-232); LIPASE 112 U/L (73-393); MAGNESIUM - SERUM 2.2 mg/dL (1.8-2.4); PRO BNP 5718 pg/mL (0-450); TROPONIN-I < 0.017 ng/mL (0.000-0.060)
--- NOTE | 2018-09-10 09:34 | NUR ---
rocephin 1 gram has infused
[2018-09-10] MEDS ORDERED: BETAPACE 120 M120 MG PO (10:20)
[2018-09-10] MEDS ORDERED: LISINOPRIL10 MG PO (10:20)
[2018-09-10] MEDS ORDERED: NEURONTIN 300300 MG PO (10:21)
[2018-09-10] MEDS ORDERED: FERROUS SULFAT325 MG PO (10:21)
[2018-09-10] MEDS ORDERED: TEMOVATE 0.05%15 G1 TOPICAL (10:22)
[2018-09-10] MEDS ORDERED: GLUCOTROL XL 1010 MG PO (10:22)
[2018-09-10] MEDS ORDERED: LIPITOR40 MG PO (10:22)
[2018-09-10 10:29] VITALS: BP 90/45; BMI 19.9
--- NOTE | 2018-09-10 10:50 | NUR ---
PT ARRIVED AT 0945 TO FLOOR. PT IS UNRESP AND DOES NOT RESP TO STERNAL RUB. STATES HE HAS BEEN THIS WAY SINCE LAST NIGHT. CONTE IS CHRONIC BUT DRAINAGE IS BLOODY. DARK RED. MULTIPLE HEALED SORES AND SCABS ARE ON UPPER EXTREMITIES. BUTTOCKS ARE RED BUT NO BREAKDOWN NOTED. [facility] CALLED AND A DNR OBTAINED. IS ALSO INTERESTED IN HOSPICE CONSULT.
--- NOTE | 2018-09-10 12:04 | NUR ---
SPOKE WITH PT SPOUSE REGARDING CORRECT HOME MEDICATION LIST. PER SPOUSE SHE TOLD KATALINA/ROCCO MGR THAT PATIENT TOOK ALL MEDICATIONS THAT KATALINA ASKED HER ABOUT BECAUSE SHE WAS CONFUSED AND SAID ALL MEDICATIONS LOOKED AND SOUNDED ALIKE SO SHE JUST SAID YES TO ALL OF THEM. HOWEVER SHE THEN STATED THAT SHE WENT BY THE DC MEDICATION LIST FROM REHAB AND ONLY GAVE THOSE MEDICATIONS WHILE PT WAS AT HOME. I ADVISED HER OF THE IMPORTANCE OF GIVING CORRECT MEDICATION INFORMATION AND THAT I WOULD GIVE HER A LIST OF DISCONTINUED MEDICATIONS THAT SHE NEEDS TO DISCARD AT HOME AND WHEN PT IS DC'D THIS TIME TO AGAIN ONLY FOLLOW AND GIVE WHAT MEDICATIONS ARE ON THE CURRENT DISCHARGE MEDICATION LIST UNLESS OTHERWISE INSTRUCTED BY PHYSICIAN
--- NOTE | 2018-09-10 12:21 | NUR ---
MONSERRAT ADKINS STATES TO GIVE PT A BOLUS OF 5OOML/HR THEN 125 AFTER THAT.
[2018-09-10 12:25] VITALS: BP 77/41
--- NOTE | 2018-09-10 13:19 | NUR ---
CALLED MONSERRAT ADKINS TO MAKE HER AWARE THAT PT' B/P 57/26 AND THIS IS WITH HIS 500 CC BOLUS. STATES DO NOT CALL RAPID RESPONSE, JUST LET HIM GO, PT IS HAS A DNR ORDER. . MADE MY TOMATO PULPER OPERATOR KATALINA VALIENTE AWARE WELL.
[2018-09-10 13:54] VITALS: Ht 175.3 cm; Wt 61.2 kg
--- NOTE | 2018-09-10 14:31 | NUR ---
REFUSED SCD'S BY SPOUSE PT IS COMFORT CARE
[2018-09-10 16:05] VITALS: BP 60/33
--- NOTE | 2018-09-10 18:22 | NUR ---
PT LAYING IN BED, STILL UNRESPONSIVE, FAMILY AT BEDSIDE, BED IN LOWEST POSITION, IV PATENT, CALL LIGTH WITHIN REACH.
[2018-09-10 20:27] VITALS: BP 74/40
--- NOTE | 2018-09-10 21:16 | NUR ---
[facility] SHOWS AYSTOLE. THIS NURSE ENTERED ROOM. PATIENT WITHOUT RESP OR B/P. Abril BUCKNER NOTIFIED.FAMILY AT BEDSIDE.
--- NOTE | 2018-09-10 21:17 | NUR ---
PERFUSIONIST BLANCA NOTIFIED OF PATIENT STATUS.
--- NOTE | 2018-09-10 21:40 | NUR ---
DR DENIS HERE. PATIENT PRONOUNCED. FAMILY REMAINS AT BEDSIDE. RUDY NOTIFIED PER FAMILY REQUEST.
--- NOTE | 2018-09-10 22:06 | NUR ---
[facility] FROM [facility] COORDINATOR OFFICE WAS NOTIFIED [place] [id number]
--- NOTE | 2018-09-10 22:15 | NUR ---
DILMA NOTIFIED AT THIS TIME
--- NOTE | 2018-09-10 22:19 | NUR ---
HOME [facility]UAN J [facility] IN [facility] NOTIFIED PER FAMILY REQUEST.RUDY HERE AT THIS TIME.
--- NOTE | 2018-09-10 23:21 | NUR ---
JUAN J ROSALES HOME HERE. BODY RELEASED AT THIS TIME.PATIENT BELONGINGS TAKEN HOME PER .
--- NOTE | 2018-09-11 10:26 | MORECARE ---
CASE MANAGEMENT DISCHARGE SUMMARY PATIENT: MISAEL DOUGHERTY UNIT: [id number] ADM DATE: 09/10/18 AGE: 78 : 39 SEX: M ROOM/BED: D.2137 AUTHOR: LUIS ZAMAN PHYSICIAN: REFERRING PHYSICIAN: ESTELA ELLIS MD DATE OF SERVICE: 09/11/18 Discharge Plan Patient Name: MISAEL DOUGHERTY [facility] [facility] 1940 Planned Disposition: Anticipated Discharge Date: 09/10/18 Discharge Date: 09/10/2018 Expected LOS: 1 Initial Reviewer: [id number] Initial Review Date: 09/11/2018 Generated: 09/11/18 11:26 am Patient Name: MISAEL DOUGHERTY Page [id number] at 1026 All edits/amendments must be made on the electronic document DICTATION DATE: 09/11/18 1025 ONCOLOGY NURSE: ELEANOR 09/11/18 1025 RPT#: [id number] DC DATE:09/10/18 STATUS: DIS IN [facility] [address] [place] [address] END OF REPORT
--- NOTE | 2018-09-11 14:57 | CN ---
PATIENT NAME:MISAEL DOUGHERTY MEDICAL RECORD: [id number] : 38 LOCATION:D. D.2139 ADMIT DATE: 09/10/18 ACCOUNT: [id number] CONSULTING PHYSICIAN: CHARITY GRAY MD REFERRING PHYSICIAN: ESTELA ELLIS MD DATE OF CONSULTATION: 09/10/2018 CARDIOLOGY CONSULT DIAGNOSES: 1. History of atrial fibrillation. 2. Coronary artery disease. 3. Previous PTCA and stent. 4. COPD. 5. Renal failure, acute. 6. Hypertension. HISTORY: This is a gentleman known to us with past history of coronary artery disease, previous PTCA and stent, also past history of atrial fibrillation, who now presents with constipation. There is a question of heart failure. The chest x-ray has no significant pulmonary edema. Echocardiogram on last admission showed an ejection fraction in the 50% range. He is in sinus rhythm. He has no ST-T changes on his EKG. He has had no chest pain. PHYSICAL EXAMINATION: GENERAL APPEARANCE: Well-nourished, well-developed, appears stated age. Level of distress, comfortable. PSYCHIATRIC: Mental status, alert, normal affect. Orientation, oriented to time, place and person. EYES: Lids and conjunctiva, noninjected. No discharge, no pallor. ENT: Lips, teeth, gums, normal dentition. Oropharynx, no cyanosis, no pallor. NECK: Carotid arteries, bilateral normal upstroke, no bruits, no thrills. JUGULAR VEINS: No jugular venous pressure or distention. CERVICAL LYMPH NODES: Nontender, nonenlarged. THYROID: Not enlarged. Nontender. No nodules. LUNGS: Respiratory effort, unlabored. CHEST: Normal curvature. No thoracic deformity. No chest wall tenderness. Percussion, resonant. Auscultation, clear. No wheezes, no rales, no rhonchi. CARDIOVASCULAR: Precordial exam, nondisplaced. No heaves or pericardial thrills. Rate and rhythm, regular. Heart sounds, normal S1, normal S2. No S3, no gallop, no rub. Systolic murmur, not heard. Diastolic murmur, not heard. EXTREMITIES: No cyanosis, no edema. Peripheral pulses, full and equal in all extremities, except as noted. No bruits appreciated. ABDOMEN: Soft, nondistended. Normal aorta. No bruit. Nontender. No masses. Liver, nontender, no hepatomegaly. Spleen, nontender, no splenomegaly. MUSCULOSKELETAL: No joint tenderness. No joint swelling. No erythema. NEUROLOGICAL: Normal gait, normal strength, normal tone. SKIN: Warm and dry. OVERALL IMPRESSION: 1. Ischemic heart disease with past history of PTCA and stent, but stable now with no anginal symptomatology and no ST-T changes. No further workup needs to be ascertained from the standpoint of ischemic heart disease. 2. Atrial fibrillation. The patient remains in sinus rhythm. At this time, no other workup or treatment needed for atrial fibrillation. CONSULT REPORT [id number] MISAEL DOUGHERTY TRANSINT:[id number] Voice Confirmation ID: [id number] DOCUMENT ID: [id number] CHARITY GRAY MD at 1457 CC: [id number] DICTATION DATE: 09/10/18 1255 CRAFT SUPERINTENDENT: 09/10/18 1359 DIS IN 09/10/18 [id number] [place] [address]
--- NOTE | 2018-09-11 15:07 | CN ---
PATIENT NAME:MISAEL DOUGHERTY MEDICAL RECORD: [id number] : 38 LOCATION:D. D.2139 ADMIT DATE: 09/10/18 ACCOUNT: [id number] CONSULTING PHYSICIAN: BRAEDEN ALBA MD REFERRING PHYSICIAN: ESTELA ELLIS MD DATE OF CONSULTATION: 09/10/2018 CONSULT REQUESTING PHYSICIAN: Rachelle Marrero MD REASON FOR CONSULTATION: Bilateral pleural effusion, bilateral lower lobe infiltrate. HISTORY OF PRESENT ILLNESS: Mr. Dougherty is a 78-year-old gentleman well known to me from previous hospitalization. The patient was just discharged from the rehab, brought him to the hospital with acute mental status changes. The patient is almost unresponsive. The CT head did not show any acute finding, but the patient is in [id number] renal failure. The patient was also hypotensive. REVIEW OF SYSTEMS: Mainly in the history of present illness. The history was mainly taken by talking to the patient's and reviewing the patient chart. PAST MEDICAL HISTORY: 1. Congestive heart failure. 2. Hypertension. 3. Chronic kidney disease. 4. History of anemia. 5. History of pneumonia. 6. History of hypertension. 7. History of bilateral pleural effusion in the past. 8. History is psoriasis. 9. History of arthritis. 10. Hard of hearing. 11. Coronary artery disease. 12. COPD with a history of smoking. PAST SURGICAL HISTORY: 1. He has a herniorrhaphy. 2. Right shoulder surgery. 3. Cataract surgery. 4. History of subarachnoid hemorrhage, seen by Dr. Velasquez. PERSONAL AND SOCIAL HISTORY: The patient is and lives with his . He is an ex-smoker. He is a nondrinker. FAMILY HISTORY: Noncontributory. PHYSICAL EXAMINATION: GENERAL: Now, the patient is unresponsive. VITAL SIGNS: The blood pressure is 60-90/45, pulse is 57, respiration is 20, temperature 97.2, SpO2 is 88% on 2 liters nasal cannula. HEENT: Conjunctivae are pink. Sclerae are not icteric. Pupils are equal, round, reactive to light. NECK: Supple, no JVD. CHEST: There are bilateral crackles. No wheezing. CONSULT REPORT [id number] MISAEL DOUGHERTY HEART: Rhythm regular, normal sound, no murmur. ABDOMEN: Soft, bowel sounds present. No hepatosplenomegaly. RECTAL: Deferred. EXTREMITIES: No cyanosis, no clubbing, no pedal edema. CENTRAL NERVOUS SYSTEM: The patient is awake and alert. There are no obvious cranial nerve abnormality. The gait was not tested. CHEST RADIOGRAPH: There are bilateral pleural effusions. There is bilateral bibasilar infiltrate. OTHER LABORATORY DATA: CBC: WBC 11.9, hemoglobin 8.9, hematocrit 28.2, the platelet count is 280. Chemistry: Sodium 135, potassium 5.2, BUN is 86, creatinine 4.7, and ammonia level is 21. The proBNP is 5718. ABG: The pH is 7.36, pCO2 of 48.2, the pO2 is 68, bicarbonate is 27.8. IMPRESSION: 1. Acute mental status, most likely secondary to metabolic encephalopathy. CT scan is negative for any acute process. 2. Bibasilar pneumonia, most likely hospital-acquired pneumonia. 3. Bilateral pleural effusion, possible parapneumonic, possible secondary to fluid overload and CHF. 4. Leukocytosis. 5. Jilzg-yq-fgtajqv kidney disease secondary to acute tubular necrosis. 6. Hypotension, possible sepsis. RECOMMENDATION: 1. Followup on the blood culture. We will start her on Levaquin and cefepime to cover for Gram-negative eligio with recent hospitalization. 2. IV fluid resuscitation per nephrology. 3. Follow up labs and chest radiograph. 4. The prognosis is guarded. The patient's code status is DNR. Dr. Marrero, thank you for involving me in the care of Mr. Dougherty. TRANSINT:[id number] Voice Confirmation ID: [id number] DOCUMENT ID: [id number] BRAEDEN ALBA MD at 1507 CC: [id number] DICTATION DATE: 09/10/18 1639 WAREHOUSE SUPERVISOR: 09/10/18 1853 DIS IN 09/10/18 [facility] [address] [id number]
== END 2018-09-10 23:29 | DRG 871 ==
LOC: D.ER 05:59 → D.M2 07:43 → D.EDHOLD 07:43 → D.M2 08:24
PROVIDERS: Family Medicine; ADMIT Emergency Medicine
DX: A41.9 Sepsis, unspecified organism (principal); N17.0 Acute kidney failure with tubular necrosis; I50.23 Acute on chronic systolic (congestive) heart failure; G93.41 Metabolic encephalopathy; J18.9 Pneumonia, unspecified organism; R40.2313 Coma scale, best motor response, none, at hospital admission; R40.2113 Coma scale, eyes open, never, at hospital admission; R40.2213 Coma scale, best verbal response, none, at hospital admission; I13.0 Hypertensive heart and chronic kidney disease with heart failure and stage 1 through stage 4 chronic kidney disease, or unspecified chronic kidney disease; J44.0 Chronic obstructive pulmonary disease with (acute) lower respiratory infection; I95.9 Hypotension, unspecified; N18.9 Chronic kidney disease, unspecified; E11.22 Type 2 diabetes mellitus with diabetic chronic kidney disease; Z66 Do not resuscitate; D64.9 Anemia, unspecified; I25.10 Atherosclerotic heart disease of native coronary artery without angina pectoris; Y95 Nosocomial condition; I48.91 Unspecified atrial fibrillation